=== PATIENT | female | born 1950 | race Caucasian/White ===

== ENCOUNTER 2019-05-21 09:53 | Inpatient (IN) | payer MEDICAID, SELFPAY ==
--- NOTE | 2019-05-21 10:11 | CT ---
Head CT without contrast 05/21/2019: Comparison: None HISTORY: Altered mental status, unresponsive TECHNIQUE: Axial CT imaging at 5 mm intervals from vertex through skull base without contrast FINDINGS: There is an intra-axial lesion measuring 4.5 x 2.3 cm on the left lateral to the left thala mus inseparable from the lateral aspect of the putamen. Its inferior extension approaches the insular region and its superior margin extends into the posterior left frontal deep white matter. The re is surrounding hypodensity suggesting vasogenic edema. This lesion is heterogeneous and hyperdense when compared to the adjacent brain parenchyma. No midline shift. IMPRESSION: Intra-axial hyperdense mass on the left. This suggests a hemorrhage with associated vasog enic edema. This could represent a hemorrhagic mass lesion. Recommend neurosurgical consultation and follow-up brain MRI with and without contrast. Dr. Root made aware at approximately 10:00 AM 05/21/2019.
[2019-05-21] MEDS ORDERED: niCARdipine 25 MG in Sodium Chloride 0.9% 250 ML 240 ML IVPB SCH (10:30)
[2019-05-21 10:48] LABS: PTT 30.5 SEC (22.9-36.1); Prothrombin Time 13.5 SEC (12.0-14.7)
[2019-05-21 10:59] LABS: #Eosinphils 0.1 thou/uL (0.0-0.7); #Lymphocytes 1.3 thou/uL (1.20-3.40); #Monocytes 0.5 thou/uL (0.11-0.59); #Neutrophils 2.5 thou/uL (1.40-6.50); %Basophils 0.4 % (0.0-1.0); %Eosinophils 2.2 % (0.0-10.0); %Lymphocytes 29.1 % (21.0-51.0); %Monocytes 11.7 % (0.0-10.0); %Neutrophils 56.7 % (42.0-75.0); ALT (SGPT) 7 U/L (8-55); AST (SGOT) 19 U/L (5-34); Albumin 4.5 g/dL (3.4-4.8); Alkaline Phosphatase 78 U/L (40-110); Anion Gap 11 mmol/L (10-20); BUN (Urea Nitrogen) 14 mg/dL (9.8-20.1); Bilirubin, Total 0.6 mg/dL (0.2-1.2); Calc. Creatinine Clearance 0 mL/min (70-130); Calcium 9.8 mg/dL (7.8-10.44); Carbon Dioxide 26 mmol/L (23-31); Chloride 106 mmol/L (98-107); Estimated GFR-MDRD 71; Globulin 2.7 g/dL (2.4-3.5); Glucose 102 mg/dL (80-115); Hemoglobin 12.9 g/dL (12.0-16.0); Mean Corpuscular HGB CONC 33.6 g/dL (32.0-36.0); Mean Corpuscular Hemoglobin 28.4 pg (27.0-31.0); Mean Corpuscular Volume 84.6 fL (78.0-98.0); Mean Platelet Volume 7.4 fL (7.4-10.4); Platelet Count 172 thou/uL (130-400); Potassium 3.7 mmol/L (3.5-5.1); Protein, Total 7.2 g/dL (6.0-8.3); Red Blood Cell (RBC) Count 4.56 mill/uL (4.20-5.40); Sodium 139 mmol/L (136-145); White Blood Cell (WBC) Count 4.5 thou/uL (4.8-10.8)
[2019-05-21] MEDS ORDERED: Ondansetron PF 4 MG/2 ML Vial IVP PRN (13:22)
--- NOTE | 2019-05-21 13:26 | PDOC.HHP ---
Hospitalist HPI - History of Present Illness intracranial hemorrhage History of Present Illness: This is a 68 year old Italian speaking female with past medical history of hypertension, arthritis who presented to the ER after syncope while visiting her daughter who was admitted in the oncology department. Patient is unable to give history as she is encephalopathic. According to nursing staff who spoke with daughter, patient has a history of hypertension and is noncompliant with her medications. The patient regained consciousness but has had right sided weakness since and has not been communicative. ED Course: Vitals upon presentation to the ER were remarkable for a blood pressure of 218/ 124. The patient was started on a nicardipine drip with improvement in her blood pressure to 160. CT head showed a hemorrhage on the left side with vasogenic edema. Neurosurgery was consulted and recommended nonoperative management at this time and admission to ICU. MRI ordered and pending. Hospitalist ROS - Review of Systems ROS unobtainable: due to mental status Hospitalist History - Past Medical History Cardiac: reports: HTN Musculoskeletal: reports: Other (Arthritis) - Past Surgical History Other Surgical History: Unknown - Family History Other Family History: Unknown - Social History Smoking Status: Unknown if ever smoked Other Social History: Unknown - Exam General Appearance: NAD General - other findings: Patient is awake, does not answer questions or follow commands Eye: PERRL, anicteric sclera ENT: normocephalic atraumatic Neck: supple, symmetric, no JVD, no thyromegaly Heart: RRR, no murmur, no gallops, no rubs Respiratory: CTAB, no wheezes, no rales, no ronchi Gastrointestinal: soft, non-tender, non-distended, normal bowel sounds Extremities: no cyanosis, no clubbing, no edema Skin: normal turgor, no lesions, no rashes Neurological: negative: facial droop Neurological - other findings: RUE and RLE weakness. Unable to assess cranial nerves Musculoskeletal: normal tone, no muscle wasting Psychiatric: normal affect, normal behavior, A&O x 3, oriented to person Hospitalist Results - Labs Result Diagrams: 05/21/19 10:12 05/21/19 10:12 Lab results: WBC 4.5 thou/uL (4.8-10.8) L 05/21/19 10:12 Hgb 12.9 g/dL (12.0-16.0) 05/21/19 10:12 Hct 38.5 % (36.0-47.0) 05/21/19 10:12 MCV 84.6 fL (78.0-98.0) 05/21/19 10:12 Plt Count 172 thou/uL (130-400) 05/21/19 10:12 Neutrophils % 56.7 % (42.0-75.0) 05/21/19 10:12 Sodium 139 mmol/L (136-145) 05/21/19 10:12 Potassium 3.7 mmol/L (3.5-5.1) 05/21/19 10:12 Chloride 106 mmol/L (98-107) 05/21/19 10:12 Carbon Dioxide 26 mmol/L (23-31) 05/21/19 10:12 BUN 14 mg/dL (9.8-20.1) 05/21/19 10:12 Creatinine 0.80 mg/dL (0.6-1.1) 05/21/19 10:12 Glucose 102 mg/dL (80-115) 05/21/19 10:12 Calcium 9.8 mg/dL (7.8-10.44) 05/21/19 10:12 Total Bilirubin 0.6 mg/dL (0.2-1.2) 05/21/19 10:12 AST 19 U/L (5-34) 05/21/19 10:12 ALT 7 U/L (8-55) L 05/21/19 10:12 Alkaline Phosphatase 78 U/L (40-110) 05/21/19 10:12 Troponin I Less than 0.010 ng/mL (< 0.028) 05/21/19 10:12 Serum Total Protein 7.2 g/dL (6.0-8.3) 05/21/19 10:12 Albumin 4.5 g/dL (3.4-4.8) 05/21/19 10:12 - EKG Interpretation EKG: NSR with LVH Hospitalist H&P A/P - Plan Plan: CT brain: hemorrhage with vasogenic edema This is a 68 year old female who presented with syncopal event, found to have elevated BP of 220 on arrival, admitted to ICU on nicardipine drip #Hypertensive emergency #Intracranial hemorrhage on the left #Syncope - patient presented with BP of 220 with loss of consciousness. Ct head shows hemorrhage on the left with vasogenic edema. Patient has right sided weakness. Per neurosurgery hold off on steroids for now since edema doesn't appear significant, however will await MRI brani - titrate SBP to 160-180 for first 24 hours - check troponin x 3, first negative. Obtain chest X ray, UA - check ECHo #Leukopenia - WBC 4.5, check CBC in am #Arthritis - unknown home meds I spent total 30 minutes critical care time with patient including face to face Code status: unknown assume full code DVt prophylaxis: contraindicated
[2019-05-21] MEDS ORDERED: Magnevist 469MG/ML 20 ML VIAL ONE (13:34)
--- NOTE | 2019-05-21 14:03 | CON ---
DATE OF CONSULTATION: HISTORY OF PRESENT ILLNESS: Ms. Fallon is a 68-year-old woman, who was in her normal state of health today. This morning, while visiting her daughter who apparently is a patient at our oncology floor and had sudden loss of consciousness for short period of time. She then regained consciousness, but had some right-sided upper and lower extremity weakness on examination. This resulted in trip to the emergency department, where a CT scan showed very large 4 x 2 cm hyperintensity lesion within the deep left hemisphere around the basal ganglia, mesial temporal lobe. She reportedly was nonverbal even to her [place] strategic partnership specialist as she does not speak any Czech. She also is in and out of consciousness at bedside in the ICU, this is still the same. Her blood pressures were elevated in the 200s. This is now down in the 150s on a Cardene drip as per our direction. This represents a noninterventional or nonsurgical hemorrhage. There was no midline shift associated with this. There is a possibility as well. This may not even be intracerebral hemorrhage given the somewhat decreased density from what I would typically expect an acute intracerebral hemorrhage. We will obtain an MRI with and without contrast today to re-evaluate this. We are also pending the results of that scan. Order CT scan later this evening. For now, systolic pressures are under 160, and we will continue to follow along. Job ID: [id number]
--- NOTE | 2019-05-21 17:05 | MRI ---
Brain MRI with and without contrast: 05/21/2019 HISTORY: Reevaluate intra-axial lesion seen on recent CT examination TECHNIQUE: Multiplanar multisequence MR imaging of the brain obtained with and without contrast FINDINGS: The gradient echo imaging demonstrates a intra-axial lesion on the left exhibiting marked b looming artifact consistent with hemorrhage. This lesion measures 2.9 cm in transverse dimension, 5.5 cm in AP dimension, and approximately 2.9 cm in craniocaudal dimension. On the FLAIR imaging this is heterogeneous but primarily markedly hyperintense. This lesion is heterogeneously isointense/hyperintense on T2 and on precontrast T1-weighted imaging the lesion is primarily hypointe nse/isointense. The postcontrast imaging demonstrates no discrete enhancement. This lesion is centered lateral to the left thalamus along the posterior lateral aspect of the left putamen and abut s the posterior body of the left lateral ventricle as well as the ventral aspect of the atrium of the left lateral ventricle. There is mass effect on the adjacent atrium and posterior body of the lef t lateral ventricle. There is a degree of surrounding vasogenic edema. There is no significant midline shift. Numerous foci of increased T2 and FLAIR signal scattered throughout the periventricular, deep, and olivares bcortical white matter, suggesting small vessel disease. The postcontrast imaging demonstrates no abnormal enhancement within the brain parenchyma. Arterial f low voids at axial level of skull base appear grossly unremarkable on the T2-weighted imaging. Imaged paranasal sinuses and mastoid air cells are grossly unremarkable. IMPRESSION: 2.9 x 5.5 x 2.9 cm left-sided intra-axial lesion with significant blooming artifact, cons istent with a hemorrhagic lesion. This likely represents a bland intra-axial hemorrhage. A hemorrhagic mass lesion is not fully excluded but is felt much less likely given lack of enhancement on postcontrast imaging. Recommend short-term follow-up imaging to document full resolution. At the time of resolution of the acute hemorrhagic component a repeat contrast enhanced brain MRI is suggest ed to exclude the possibility of a small underlying lesion currently obscured by the acute areas of signal abnormality.
[2019-05-21] MEDS ORDERED: HumaLOG 300 UNITS/3 ML VIAL SC PRN (17:17)
[2019-05-21] MEDS ORDERED: Dextrose 50% Abboject 50 ML SYRINGE SLOW IVP PRN (17:17)
[2019-05-21] MEDS ORDERED: Dextrose 5% in Water 1,000 ML IV PRN (17:17)
[2019-05-21] MEDS ORDERED: Acetaminophen 650 MG in Premix Bag 1 BAG IVPB PRN (17:18)
[2019-05-21] MEDS ORDERED: Morphine 2 MG/ML SYRINGE SLOW IVP PRN (17:18)
[2019-05-21] MEDS ORDERED: Dextrose 5 %-0.45 % NaCl 1,000 ML IV SCH (17:30)
--- NOTE | 2019-05-21 17:33 | RAD ---
Chest one view HISTORY: Hypertension. FINDINGS: No comparison. Cardiac silhouette is magnified and enlarged. Pulmonary vasculature upper li mits of normal. Mediastinum is midline with aortic calcification. No lobar consolidation or evidence of pneumothorax. IMPRESSION: Cardiomegaly. Atherosclerosis.
--- NOTE | 2019-05-21 20:18 | CON ---
DATE OF CONSULTATION: 05/21/2019 HISTORY OF PRESENT ILLNESS: Ms. Fallon was visiting a daughter who is ill in the Oncology unit. Apparently, she fell out. Jose Alex was called, and she was found to have a brain bleed. She is hemiplegic on the right and aphasic. She is unable to give a history. PAST MEDICAL HISTORY: According to the daughter's friend who speaks Armenian as far as she knows is unremarkable. She was noted to be markedly hypertensive in the emergency department and does have a history of hypertension. There is no history of surgeries according to the daughter's friend, but she quickly admits she does not know all of her friend's mother's history. FAMILY HISTORY: Unknown. SOCIAL HISTORY: Unknown. REVIEW OF SYSTEMS: 10 point review of systems completed, not obtainable. PHYSICAL EXAMINATION: GENERAL: When I saw her, she could make eye contact. She is nonverbal. VITAL SIGNS: Heart rate is in the 70s, blood pressure 167/91, respiratory rate 20. She is protecting her airway. NECK: Supple. No lymphadenopathy. HEENT: pupils react. LUNGS: Clear. HEART: Regular rhythm. ABDOMEN: Soft and nontender. EXTREMITIES: Without edema. Again, she is right hemiplegic. LABORATORY DATA: White count 4.5, hemoglobin 12.9, platelets 172. Electrolytes are normal. Kidney function was normal. Liver enzymes were normal. Albumin was normal. CT showed a left thalamic bleed. MRI was ordered after the CT by Neurosurgery. There was felt to be a hemorrhage , much less likely a mass. IMPRESSION: Hypertensive hemorrhage, being followed by Neurosurgery. No surgery is anticipated at this time. Obviously, her ability to care for her daughter will be impaired by this. Hopefully, we will see some neurological improvement. I would be concerned that she will reach a point where she may have difficulty protecting her airway. We will continue to watch her in the critical care unit. This is a 70 minute consult, with greater than 50% of time spent on unit coordinating care. Job ID: [id number] MTDD
[2019-05-21] MEDS: niCARdipine 25 MG in Sodium Chloride 0.9% 250 ML 240 ML IVPB PRN (21:48)
[2019-05-21] MEDS: Famotidine/PF 20 mg/2ml Vial SLOW IVP SCH (21:48)
[2019-05-21] MEDS: Sodium Chloride 0.9% 1,000 ML IV SCH (23:00)
[2019-05-22] MEDS: niCARdipine 25 MG in Sodium Chloride 0.9% 250 ML 240 ML IVPB PRN (00:40)
[2019-05-22] MEDS ORDERED: niCARdipine 50 MG in Sodium Chloride 0.9% 250 ML 230 ML IVPB PRN (04:22)
[2019-05-22 06:45] LABS: ALT (SGPT) 7 U/L (8-55); AST (SGOT) 21 U/L (5-34); Albumin 4.5 g/dL (3.4-4.8); Alkaline Phosphatase 82 U/L (40-110); Anion Gap 15 mmol/L (10-20); BUN (Urea Nitrogen) 12 mg/dL (9.8-20.1); Bilirubin, Total 0.7 mg/dL (0.2-1.2); Calc. Creatinine Clearance 118 mL/min (70-130); Calcium 9.7 mg/dL (7.8-10.44); Carbon Dioxide 20 mmol/L (23-31); Chloride 104 mmol/L (98-107); Estimated GFR-MDRD 83; Glucose 122 mg/dL (80-115); Potassium 3.6 mmol/L (3.5-5.1); Protein, Total 7.5 g/dL (6.0-8.3); Sodium 135 mmol/L (136-145)
[2019-05-22 08:55] LABS: Bacteria/HPF None Seen HPF (None Seen); Bilirubin Negative (Negative); Blood, Urine Trace (Negative); Clarity Clear (Clear); Glucose, Urine (Dipstick) Normal (Negative); Leukocyte Negative Leu/uL (Negative); Nitrite Negative (Negative); Protein, Urine (Dipstick) 30 mg/dL (Neg-Trace); Squamous Epithelial 0-3 HPF (0-3); Urobilinogen Normal mg/dL (Less than 2)
[2019-05-22] MEDS ORDERED: Prevnar 13-Val Conj/PF 0.5 ML SYRINGE IM ONE (09:00)
[2019-05-22] MEDS: Famotidine/PF 20 mg/2ml Vial SLOW IVP SCH ×2 (09:00→20:30)
[2019-05-22] MEDS ORDERED: FLU VACC TS2019-20(65YR UP)/PF 180 MCG/0.5 ML SYRINGE IM ONE (09:00)
[2019-05-22 09:04] LABS: WBC/HPF 0-3 HPF (0-3)
--- NOTE | 2019-05-22 09:32 | CT ---
PRELIMINARY REPORT/[facility]/EMERGENCY AFTER HOURS PROCEDURE: PROCEDURE INFORMATION: Exam: CT Head Without Contrast Exam date and time: 05/22/2019 4:54 AM Clinical history: 68 years old, female; Patient HX: Followup of known intracranial hemorrhage. TECHNIQUE: Imaging protocol: Computed tomography of the head without contrast. COMPARISON: No relevant prior studies available. A prior report is available from 05/21/2019. FINDINGS: Brain: As described in the prior report, there is an acute intraparenchymal hematoma centered in the region of the left basal ganglia. The hematoma measures 45 x 22 x 25 mm, estimated volume approximately 13 cc. The prior report describ es the size as 45 x 23 mm. Eventual comparison with any available prior exams will be helpful. Moderate amount of surrounding edema and focal mass effect. There is 2-3 mm of [id number] midline shift. There is mild decreased attenuation in the periventricular white matter, likely from microvascular di sease. No other definite acute infarct by CT. Ventricles: Ventricle size is normal for age. Bones/joints: No definite acute skull fracture. Sinuses: Included paranasal sinuses are essentially clear. Mastoid air cells: No significant acute finding. Vasculature: Vascular calcifications in the internal carotid and vertebral basilar systems. IMPRESSION: 1. As described previously, there is an acute intraparenchymal hematoma centered in the left basal ga nglia. Please see above details. 2. Moderate amount of surrounding edema and focal mass effect. 3. 2-3 mm of [id number]-ia-[id number] midline shift. 4. Eventual comparison with any available prior exams will be helpful. 5. Other findings discussed above. Thank you for allowing us to participate in the care of your patient. Dictated and Authenticated by: Malcolm Singer MD 05/22/2019 5:57 AM Central Time ([place] & [place]) FINAL REPORT CT BRAIN WITHOUT CONTRAST: FINDINGS/IMPRESSION: I agree with the preliminary report given by Laya. Comparison made with exam of previous day. POS: SANDRA
--- NOTE | 2019-05-22 13:16 | PRG ---
DATE OF SERVICE: 05/22/2019 SUBJECTIVE: Mona Fallon is clinically unchanged. She is still handling her secretions. She is still hemiplegic and aphasic. OBJECTIVE: VITAL SIGNS: She is afebrile. Heart rate is 97, blood pressure 140/94. LUNGS: Clear. HEART: Regular rhythm. ABDOMEN: Soft. LABORATORY DATA: Electrolytes; sodium 135, potassium 3.6, chloride 104, bicarb 20, BUN 12, and creatinine 0.7. IMPRESSION: Parenchymal brain hemorrhage. CT scan shows no progression today. Continue supportive care. Job ID: [id number]
--- NOTE | 2019-05-22 15:01 | PDOC.HOSPP ---
- Subjective Encounter Date: 05/22/19 Encounter Time: 14:59 Subjective: Patient is still confused, not following commands. Unable to get [place] video asbestos shingle inspector today. Per nursing staff she did not understand when asbestos shingle inspector was used either. Patient looks around as if nobody is in the room, but responds to her name. She neglects right side - Objective Vital Signs & Weight: Vital Signs (12 hours) Temp Pulse Ox 05/22/19 11:00 98.0 F 05/22/19 08:00 98 05/22/19 07:00 98.3 F 05/22/19 04:00 98.7 F Weight Admit Weight 213 lb 6.519 oz Weight 213 lb 6.519 oz Most Recent Monitor Data Heart Rate from ECG 108 NIBP 140/86 NIBP BP-Mean 104 Respiration from ECG 22 SpO2 96 I&O: 05/21/19 05/22/19 05/23/19 06:59 06:59 06:59 Intake Total 948 Output Total 2100 1 Balance -1152 -1 Result Diagrams: 05/21/19 10:12 05/22/19 05:56 Additional Labs: Accuchecks 05/22/19 05/22/19 05/21/19 13:18 00:46 18:45 POC Glucose 103 129 H 108 Hospitalist ROS - Review of Systems Constitutional: denies: fever - Medication Medications: Active Medications Generic Name Dose Route Start Last Admin Trade Name Freq PRN Reason Stop Dose Admin Famotidine 20 mg 05/21/19 21:00 05/22/19 09:00 Pepcid SLOW IVP 20 mg Q12HR CRUZ Administration Nicardipine HCl 25 mg/ Sodium 250 mls @ 0 mls/hr 05/21/19 13:22 05/22/19 00: 40 Chloride IVPB 250 mls INF PRN Administration Hypertension Protocol Titrate Sodium Chloride 1,000 mls @ 60 mls/hr 05/21/19 22:15 05/21/19 23:00 Normal Saline 0.9% IV 1,000 mls .[id number] CRUZ Administration Nicardipine HCl 50 mg/ Sodium 250 mls @ 0 mls/hr 05/22/19 04:22 05/22/19 11: 36 Chloride IVPB 250 mls INF PRN Administration HYPERTENSION Protocol Titrate Sodium Chloride 10 ml 05/21/19 21:00 05/22/19 09:01 Flush - Normal Saline IVF 10 ml Q12HR CRUZ Administration - Exam General Appearance: NAD, awake alert General - other findings: confused with right sided neglect Eye: anicteric sclera. negative: PERRL ENT: normocephalic atraumatic, no oropharyngeal lesions Neck: supple, symmetric, no JVD, no thyromegaly Heart: RRR, no murmur, no gallops, no rubs Respiratory: CTAB, no wheezes, no rales, no ronchi Gastrointestinal: soft, non-tender, non-distended, normal bowel sounds Extremities: no cyanosis, no clubbing, no edema Skin: normal turgor, no lesions, no rashes Neurological: cranial nerve grossly intact Neurological - other findings: still not moving right arm or right leg. Spontaneously moves left side Musculoskeletal: no muscle wasting Musculoskeletal - other findings: flaccid on right Psychiatric - other findings: confused Hosp A/P - Plan CT head: hematoma measures 45 x 22 x 25. Moderate amount of surrounding edema and focal mass effect, 2-3 mm of left to right midline shift. Chest X ray 05/21: cardiomegaly ECHO: pending This is a 68 year old female who presented with syncopal event, found to have elevated BP of 220 on arrival, admitted to ICU on nicardipine drip #Hypertensive emergency #Intracranial hemorrhage on the left #Syncope - patient presented with BP of 220 with loss of consciousness. Ct head shows hemorrhage on the left with vasogenic edema. Patient has right sided weakness. - repeat CT head showing significant edema, no steroids per neurosurgery . Repeat CBC - BP goal 140-160, continue nicardipine drip - titrate SBP to 160-180 for first 24 hours - troponin negative times three. Chest X ray shows cardiomegaly, UA 100 ketones - ECHO pending - hold off on NG feedings for now given hemorrhage. Defer to NS when safe to restart #Leukopenia - WBC 4.5, check CBC #Arthritis - unknown home meds Code status: assume full code, unknown DVT prophylaxis: contraindicated
[2019-05-22] MEDS: Sodium Chloride 0.9% 1,000 ML IV SCH ×2 (15:36→17:16)
--- NOTE | 2019-05-22 16:38 | PDOC.PALCO ---
Palliative Care Consult - Consult Details Requesting Physician: Dr Colón Reason for Consult: advance directives assistance, assistance with communication prognosis/disease Family Members Present: Daughter is a patietn of Dr Alatorre in [place] - Pertinent HPI Patient is a 68 year old female who was at her daughters bedside (Who is a patient in oncology with a guarded prognosis) and had a syncopal episode at bedside, transferred to the emergency room for evaluation and was noted to have a left hemorrhage with Vasogenic edema, non verbal with right sided weakness. Admitted to CCU for medical management - Pertinent PMH Hypertension, HDL - Social History Smoking Status: Unknown if ever smoked Smoking: no tobacco exposure Alcohol Use: none Drug Use History: none Living Situation: other (Maltese speaking, is here from the [facility] to assist in caring for her daughter) - Medications MAR Reviewed: Yes - Allergies Allergies/Adverse Reactions: Allergies Allergy/AdvReac Type Severity Reaction Status Date / Time No Known Drug Allergies Allergy Verified 05/21/19 10:22 - Subjective Resting, opens eye when stimulated. Aphagic. Right sided weakness. Unable to perform ROS - Objective Vital Signs: Vital Signs - Most Recent Temp Pulse Resp BP Pulse Ox 98.4 F 79 22 H 98 05/22/19 15:00 05/21/19 10:19 05/21/19 10:19 05/22/19 08:00 Palliative Performance Scale: 20 - Physical Exam Constitutional: mild distress HEENT: moist MMs, sclera anicteric Respiratory: clear to auscultation bilateral, unlabored breathing Cardiovascular: RRR Gastrointestinal: soft, non-tender, positive bowel sounds Musculoskeletal: pulses present, no clubbing Deviation from normal: right weakness Deviation from normal: flat, opens eyes but returns to sleep state - Problem List (1) Palliative care encounter Code(s): Z51.5 - ENCOUNTER FOR PALLIATIVE CARE Current Visit: Yes Status: Acute (2) Hemiplegia affecting right dominant side Code(s): G81.91 - HEMIPLEGIA, UNSPECIFIED AFFECTING RIGHT DOMINANT SIDE Current Visit: Yes Status: Acute (3) Cerebral parenchymal hemorrhage Code(s): I61.9 - NONTRAUMATIC INTRACEREBRAL HEMORRHAGE, UNSPECIFIED Current Visit: Yes Status: Acute - Plan/Recommendations Plan: Assessed patient. Visited with daughter earlier, states she visited her mother. Daughter is having difficulty grasping severity of her mothers cerebral hemorrhage. Patient is here caring for her terminally ill daughter who is currently a patient in oncology and cared for by Dr Alatorre. *Support family *Discuss Resuscitation Status *Assist patient daughter with complex disease process of her mother, possibilities of disease trajectories and identify goals of care. *Will visit with daughter and establish contact for her sister (Ms Chamorro other daughter) [45] minutes spent on this encounter with >50% of the time in counseling and coordination of care. Thank you for this very appropriate consult.
[2019-05-22] MEDS: niCARdipine 50 MG in Sodium Chloride 0.9% 250 ML 230 ML IVPB PRN (17:16)
[2019-05-22] MEDS: Acetaminophen 650 MG Suppository PR PRN (23:41)
--- NOTE | 2019-05-22 23:44 | RAD ---
Chest one view HISTORY: Fever. Cough. COMPARISON: 05/21/2019. FINDINGS: Cardiac silhouette is magnified and upper limits of normal in size. Pulmonary vasculature i s unremarkable. Mediastinum is midline with aortic calcification. No lobar consolidation or evidence of pneumothorax. monitor car operator leads overlie the chest. IMPRESSION: Borderline cardiomegaly. Atherosclerosis.
[2019-05-22 23:49] LABS: #Lymphocytes 1.5 thou/uL (1.20-3.40); #Monocytes 0.7 thou/uL (0.11-0.59); #Neutrophils 9.4 thou/uL (1.40-6.50); %Basophils 0.2 % (0.0-1.0); %Eosinophils 0.1 % (0.0-10.0); %Lymphocytes 12.8 % (21.0-51.0); %Monocytes 6.1 % (0.0-10.0); %Neutrophils 80.8 % (42.0-75.0); Hemoglobin 13.9 g/dL (12.0-16.0); Mean Corpuscular HGB CONC 34.4 g/dL (32.0-36.0); Mean Corpuscular Hemoglobin 28.2 pg (27.0-31.0); Mean Corpuscular Volume 81.9 fL (78.0-98.0); Mean Platelet Volume 6.7 fL (7.4-10.4); Platelet Count 211 thou/uL (130-400); Red Blood Cell (RBC) Count 4.93 mill/uL (4.20-5.40); White Blood Cell (WBC) Count 11.7 thou/uL (4.8-10.8)
[2019-05-23 00:06] LABS: Lactic Acid 0.8 mmol/L (0.5-2.2)
[2019-05-23 01:03] LABS: Bilirubin Negative (Negative); Blood, Urine Trace (Negative); Clarity Clear (Clear); Glucose, Urine (Dipstick) Normal (Negative); Leukocyte Negative Leu/uL (Negative); Nitrite Negative (Negative); Protein, Urine (Dipstick) 10 mg/dL (Neg-Trace); RBC/HPF 0-3 HPF (0-3); Squamous Epithelial None Seen HPF (0-3); Urobilinogen Normal mg/dL (Less than 2); WBC/HPF 0-3 HPF (0-3)
[2019-05-23 01:09] LABS: Bacteria/HPF Rare-Few HPF (None Seen)
[2019-05-23 01:11] LABS: Urine Culture Reflex No No
[2019-05-23] MEDS: Metoprolol Tartrate 5 MG/5 ML VIAL IVP PRN ×4 (02:23→15:57)
[2019-05-23 04:06] LABS: Hemoglobin 13.2 g/dL (12.0-16.0); Mean Corpuscular HGB CONC 33.3 g/dL (32.0-36.0); Mean Corpuscular Hemoglobin 27.1 pg (27.0-31.0); Mean Corpuscular Volume 81.6 fL (78.0-98.0); Platelet Count 218 thou/uL (130-400); RBC Distribution Width 12.8 % (11.5-14.5); Red Blood Cell (RBC) Count 4.85 mill/uL (4.20-5.40); White Blood Cell (WBC) Count 11.7 thou/uL (4.8-10.8)
[2019-05-23 04:43] LABS: ALT (SGPT) 7 U/L (8-55); AST (SGOT) 17 U/L (5-34); Albumin 4.4 g/dL (3.4-4.8); Alkaline Phosphatase 79 U/L (40-110); Anion Gap 10 mmol/L (10-20); BUN (Urea Nitrogen) 18 mg/dL (9.8-20.1); Bilirubin, Total 0.7 mg/dL (0.2-1.2); Calc. Creatinine Clearance 114 mL/min (70-130); Calcium 9.2 mg/dL (7.8-10.44); Carbon Dioxide 24 mmol/L (23-31); Chloride 105 mmol/L (98-107); Estimated GFR-MDRD 81; Globulin 2.8 g/dL (2.4-3.5); Glucose 132 mg/dL (80-115); Protein, Total 7.2 g/dL (6.0-8.3); Sodium 136 mmol/L (136-145)
[2019-05-23] MEDS: niCARdipine 50 MG in Sodium Chloride 0.9% 250 ML 230 ML IVPB PRN ×2 (05:01→15:55)
[2019-05-23] MEDS: Famotidine/PF 20 mg/2ml Vial SLOW IVP SCH ×2 (07:30→20:05)
--- NOTE | 2019-05-23 07:55 | PRG ---
DATE OF SERVICE: 05/22/2019 Ms. Fallon this morning is roughly stable on a neurologic examination. She does not speak Romanian, but an distance learning program coordinator was used. She is not following commands. She opens her eyes, grasps, yells out for people who are in the room. Repeat CT this morning shows stable hemorrhage size. There is now some early vasogenic edema surrounding this hemorrhage of the left basal ganglia, mesial temporal lobe. It appeared that she otherwise is experiencing a combination of receptive and expressive aphasia or is just encephalopathic and likely is a combination of both hemorrhage. She is hemiparetic on the right. From Neurosurgery standpoint, this is still a nonsurgical hemorrhage. Given her overall level of consciousness and lack of significant midline shift, we would state that her prognosis is guarded at this time and will likely result in some significant permanent deficits, particularly right motor, though there is a substantial chance for fair recovery with extensive rehabilitation with Speech, PT, and OT over the next 18 months, but again reiterating the fact that the likelihood of substantial recovery being rather low with a definitive minimal chance that returned to normal function. Plan for now is to continue to follow along. We will consider medical management if vasogenic edema becomes a problem and midline shift becomes significant. Job ID: [id number]
[2019-05-23] MEDS: Sodium Chloride 0.9% 1,000 ML IV SCH (09:13)
--- NOTE | 2019-05-23 11:12 | RAD ---
KUB: 05/23/2019 COMPARISON: None HISTORY: Dobbhoff tube placement FINDINGS: Dobbhoff tube noted, distal tip overlying the midline upper epigastric region at the L1 lev el, likely within the region of the gastric body. The bowel gas pattern is nonobstructed. There is levoscoliosis of the midlumbar spine. IMPRESSION: Dobbhoff tube as above.
[2019-05-23] MEDS: Potassium Chloride 10 MEQ in Premix Bag 1 BAG IVPB SCH ×4 (12:26→15:58)
[2019-05-23] MEDS ORDERED: Pancrelipase DR 12000 1 CAP PER TUBE PRN (12:42)
[2019-05-23] MEDS ORDERED: Sodium Bicarbonate Tab 325 MG TAB PER TUBE PRN (12:42)
[2019-05-23] MEDS ORDERED: Amlodipine 10 MG TAB PO SCH (13:45)
[2019-05-23] MEDS: cloNIDine 0.1 MG TAB PO PRN ×2 (15:57→23:35)
[2019-05-23] MEDS: Acetaminophen 650 MG Suppository PR PRN (16:11)
--- NOTE | 2019-05-23 16:17 | PRG ---
DATE OF SERVICE: 05/23/2019 SUBJECTIVE: Mona Fallon still nonverbal and hemiplegic. There are no issues from a secretion standpoint airway protection. OBJECTIVE: VITAL SIGNS: At this time, blood pressure 163/94, heart rate is 92. We are trying to switch her from Cardene drip to Norvasc. We will add Catapres for p.r.n. use. She has a Dobbhoff tube placed. LUNGS: Clear. HEART: Regular rhythm. ABDOMEN: Soft. EXTREMITIES: Without asymmetry. IMPRESSION: Parenchymal brain hemorrhage, likely secondary to hypertension, clinically stable at this time. Dobhoff has been placed, highly likely she will need a PEG at some point. Job ID: [id number]
--- NOTE | 2019-05-23 17:40 | PDOC.HOSPP ---
- Subjective Encounter Date: 05/23/19 Encounter Time: 17:00 Subjective: Patient is awake, still not following commands or moving RLE. - Objective Vital Signs & Weight: Vital Signs (12 hours) Temp Pulse Ox 05/23/19 16:00 99.9 F H 05/23/19 11:00 99.3 F 05/23/19 07:15 97 05/23/19 07:00 100.0 F H Weight Admit Weight 213 lb 6.519 oz Weight 210 lb 12.191 oz Most Recent Monitor Data Heart Rate from ECG 92 NIBP 136/99 NIBP BP-Mean 111 Respiration from ECG 15 SpO2 96 I&O: 05/22/19 05/23/19 05/24/19 06:59 06:59 06:59 Intake Total 948 1849.5 240 Output Total 2100 4 1700 Balance -1152 1845.5 -1460 Result Diagrams: 05/23/19 03:30 05/23/19 03:30 Additional Labs: Accuchecks 05/23/19 05/23/19 05/23/19 16:51 12:11 05:59 POC Glucose 101 80 115 H 05/22/19 05/22/19 23:41 18:12 POC Glucose 119 H 110 Hospitalist ROS - Review of Systems ROS unobtainable: due to mental status - Medication Medications: Active Medications Generic Name Dose Route Start Last Admin Trade Name Freq PRN Reason Stop Dose Admin Acetaminophen 650 mg 05/22/19 23:17 05/23/19 16:11 Tylenol ID 650 mg Q4H PRN Administration Headache/Fever or Pain Clonidine 0.1 mg 05/23/19 15:27 05/23/19 15:57 Catapres PO 0.1 mg Q4H PRN Administration SBP GREATER THAN 160 Famotidine 20 mg 05/21/19 21:00 05/23/19 07:30 Pepcid SLOW IVP 20 mg Q12HR CRUZ Administration Nicardipine HCl 25 mg/ Sodium 250 mls @ 0 mls/hr 05/21/19 13:22 05/22/19 00: 40 Chloride IVPB 250 mls INF PRN Administration Hypertension Protocol Titrate Sodium Chloride 1,000 mls @ 60 mls/hr 05/21/19 22:15 05/23/19 09:13 Normal Saline 0.9% IV 1,000 mls .[id number] CRUZ Administration Nicardipine HCl 50 mg/ Sodium 250 mls @ 0 mls/hr 05/22/19 15:11 05/23/19 15: 55 Chloride IVPB 250 mls INF PRN Administration HYPERTENSION Protocol Titrate Metoprolol Tartrate 5 mg 05/23/19 02:19 05/23/19 15:57 Lopressor IVP 5 mg Q3H PRN Administration HR > 110 Sodium Chloride 10 ml 05/21/19 21:00 05/23/19 07:30 Flush - Normal Saline IVF Not Given Q12HR CRUZ - Exam General Appearance: NAD, awake alert Eye: PERRL, anicteric sclera ENT: normocephalic atraumatic, no oropharyngeal lesions Neck: supple, no JVD Heart: RRR, no murmur, no gallops, no rubs Respiratory: CTAB, no wheezes, no rales, no ronchi Gastrointestinal: soft, non-tender, non-distended, normal bowel sounds, no palpable masses Extremities: no cyanosis, no clubbing, no edema Skin: normal turgor, no lesions, no rashes Neurological: cranial nerve grossly intact, normal sensation to touch Neurological - other findings: Spontaneously moves left side. Right side neglect , right UE and RLE weaknes Musculoskeletal: normal tone, normal strength, no muscle wasting Psychiatric: normal affect, normal behavior Hosp A/P - Plan CT head: hematoma measures 45 x 22 x 25. Moderate amount of surrounding edema and focal mass effect, 2-3 mm of left to right midline shift. Chest X ray 05/21: cardiomegaly ECHO: EF 55-60%, mild MR, mild TR This is a 68 year old female who presented with syncopal event, found to have elevated BP of 220 on arrival, admitted to ICU on nicardipine drip #Hypertensive emergency #Intracranial hemorrhage on the left #Syncope - patient presented with BP of 220 with loss of consciousness. Ct head shows hemorrhage on the left with vasogenic edema. Patient has right sided weakness. - repeat CT head showing significant edema, no steroids per neurosurgery . CBC shows no anemia - on nicardipine drip, will aim for SBP < 140 - troponin negative times three. Chest X ray shows cardiomegaly, UA 100 ketones - ECHO showed EF 55-60%, mild MR, mild TR - appreciate neurosurgery recs #Malnutrition - NG tube placed, started feeds. Consider PEG #Hypokalemia - potassium 3.0. Given 40 meq of potassium. Will recheck #Leukocytosis - WBC of 11. No pneumonia and UA negative - continue to monitor for fevers #Arthritis - unknown home meds Code status: assume full code, unknown DVT prophylaxis: contraindicated
[2019-05-23 18:20] LABS: Potassium 3.8 mmol/L (3.5-5.1)
[2019-05-24 04:57] LABS: ALT (SGPT) Less than 7 U/L (8-55); AST (SGOT) 14 U/L (5-34); Alkaline Phosphatase 70 U/L (40-110); Anion Gap 9 mmol/L (10-20); BUN (Urea Nitrogen) 25 mg/dL (9.8-20.1); Bilirubin, Total 0.6 mg/dL (0.2-1.2); Calc. Creatinine Clearance 106 mL/min (70-130); Carbon Dioxide 26 mmol/L (23-31); Chloride 105 mmol/L (98-107); Estimated GFR-MDRD 75; Globulin 2.4 g/dL (2.4-3.5); Glucose 120 mg/dL (80-115); Potassium 3.6 mmol/L (3.5-5.1); Protein, Total 6.4 g/dL (6.0-8.3); Sodium 136 mmol/L (136-145)
[2019-05-24] MEDS: Famotidine/PF 20 mg/2ml Vial SLOW IVP SCH ×2 (09:00→21:56)
[2019-05-24] MEDS: Amlodipine 10 MG TAB PO SCH (09:00)
[2019-05-24] MEDS: Sodium Chloride 0.9% 1,000 ML IV SCH ×2 (09:02→21:57)
--- NOTE | 2019-05-24 11:45 | PRG ---
DATE OF SERVICE: 05/24/2019 SUBJECTIVE: Mona Fallon is unchanged. She will open her eyes. She will reliably follow commands. OBJECTIVE: VITAL SIGNS: Blood pressure 140/99, heart rate 84, and respiratory rate is 14. GENERAL: She is not having issues with secretions. LUNGS: Clear. HEART: Regular rhythm. ABDOMEN: Soft. LABORATORY DATA: Sodium 136, potassium 3.6, chloride 105, bicarb 26, BUN 25, and creatinine 0.77. IMPRESSION: Parenchymal brain hemorrhage, now in the hospital since 05/21. She will likely benefit from PEG placement. We will continue to follow. Continue to make adjustments of blood pressure medicines. Job ID: [id number]
--- NOTE | 2019-05-24 19:14 | PDOC.HOSPP ---
- Subjective Encounter Date: 05/24/19 Encounter Time: 19:13 Subjective: The patient is following commands in Maltese. She states that her right arm is hurting her. Patient did fall during code green. She is clutching her right arm. She is still not moving right arm or leg. She moves left side. - Objective Vital Signs & Weight: Vital Signs (12 hours) Temp Pulse Pulse BP BP BP Pulse Ox 05/24/19 15:58 104 H 99 162/108 H 157/93 H 05/24/19 12:00 97.9 F 05/24/19 09:00 150/115 H 05/24/19 08:00 99 Weight Admit Weight 213 lb 6.519 oz Weight 214 lb 11.684 oz Most Recent Monitor Data Heart Rate from ECG 110 NIBP 157/93 NIBP BP-Mean 114 Respiration from ECG 18 SpO2 97 I&O: 05/23/19 05/24/19 05/25/19 06:59 06:59 06:59 Intake Total 1849.5 2512 Output Total 4 2583 1010 Balance 1845.5 -71 -1010 Result Diagrams: 05/23/19 03:30 05/24/19 04:25 Additional Labs: Accuchecks 05/24/19 05/24/19 05/24/19 18:17 11:30 06:23 POC Glucose 75 101 121 H 05/24/19 00:14 POC Glucose 83 Hospitalist ROS - Medication Medications: Active Medications Generic Name Dose Route Start Last Admin Trade Name Freq PRN Reason Stop Dose Admin Acetaminophen 650 mg 05/22/19 23:17 05/23/19 16:11 Tylenol [place] 650 mg Q4H PRN Administration Headache/Fever or Pain Amlodipine Besylate 10 mg 05/24/19 09:00 05/24/19 09:00 Norvasc PO 10 mg DAILY CRUZ Administration Clonidine 0.1 mg 05/23/19 15:27 05/23/19 23:35 Catapres PO 0.1 mg Q4H PRN Administration SBP GREATER THAN 160 Famotidine 20 mg 05/21/19 21:00 05/24/19 09:00 Pepcid SLOW IVP 20 mg Q12HR CRUZ Administration Sodium Chloride 1,000 mls @ 60 mls/hr 05/21/19 22:15 05/24/19 09:02 Normal Saline 0.9% IV 1,000 mls .[id number] CRUZ Administration Metoprolol Tartrate 5 mg 05/23/19 02:19 05/23/19 15:57 Lopressor IVP 5 mg Q3H PRN Administration HR > 110 Sodium Chloride 10 ml 05/21/19 21:00 05/24/19 09:01 Flush - Normal Saline IVF 10 ml Q12HR CRUZ Administration - Exam General Appearance: NAD, awake alert Eye: PERRL, anicteric sclera ENT: normocephalic atraumatic, no oropharyngeal lesions Neck: supple, symmetric, no JVD, no thyromegaly Heart: RRR, no murmur, no gallops, no rubs Respiratory: CTAB, no wheezes, no rales, no ronchi Gastrointestinal: soft, non-tender, non-distended, normal bowel sounds Extremities: no cyanosis, no clubbing, no edema Skin: normal turgor, no lesions, no rashes Neurological: cranial nerve grossly intact, normal sensation to touch, no focal deficits, no new deficit Musculoskeletal: normal tone, normal strength, no muscle wasting Psychiatric: normal affect, normal behavior, A&O x 3, oriented to person Hosp A/P - Plan CT head: hematoma measures 45 x 22 x 25. Moderate amount of surrounding edema and focal mass effect, 2-3 mm of left to right midline shift. Chest X ray 05/21: cardiomegaly ECHO: EF 55-60%, mild MR, mild TR This is a 68 year old female who presented with syncopal event, found to have elevated BP of 220 on arrival, admitted to ICU on nicardipine drip #Hypertensive emergency #Intracranial hemorrhage on the left #Syncope - patient presented with BP of 220 with loss of consciousness. Ct head shows hemorrhage on the left with vasogenic edema. Patient has right sided weakness. - repeat CT head showing significant edema, no steroids per neurosurgery . CBC shows no anemia - off nicardipine drip. Started amlodipine and aim for BP goal < 140 - troponin negative times three. Chest X ray shows cardiomegaly, UA 100 ketones - ECHO showed EF 55-60%, mild MR, mild TR #Right arm pain - will check X ray right arm - IV tylenol prn #Malnutrition - NG tube placed, started feeds. Will place consult for PEG #Hypokalemia -resolved #Leukocytosis - WBC up to 11.7 No pneumonia and UA negative - continue to monitor for fevers #Arthritis - unknown home meds Code status: assume full code, unknown DVT prophylaxis: contraindicated
--- NOTE | 2019-05-24 20:45 | RAD ---
RIGHT FOREARM TWO VIEWS: 05/24/19 HISTORY: Fall. Pain. FINDINGS: No fracture. No cortical irregularity or periosteal reaction. IMPRESSION: No fracture. POS: PPP
--- NOTE | 2019-05-24 20:46 | RAD ---
TWO VIEWS RIGHT HIP: 05/24/19 HISTORY: Fall. Pain. FINDINGS: Contour of the femoral head is maintained and hip joint space is preserved. Visualized bony pelvis an d sacrum are intact. IMPRESSION: No fracture. POS: PPP
--- NOTE | 2019-05-24 20:50 | RAD ---
RIGHT SHOULDER THREE VIEWS: 05/24/19 HISTORY: Pain. FINDINGS: Glenohumeral joint space is preserved. No fracture or dislocation. Degenerative changes of the acromi oclavicular joint space. The visualized ribs are intact. IMPRESSION: No fracture or dislocation. POS: PPP
[2019-05-25] MEDS: Acetaminophen 1,000 MG in Premix Bag 1 BAG IVPB PRN ×2 (03:44→18:09)
[2019-05-25 04:41] LABS: ALT (SGPT) Less than 7 U/L (8-55); AST (SGOT) 12 U/L (5-34); Albumin 3.7 g/dL (3.4-4.8); Alkaline Phosphatase 70 U/L (40-110); Anion Gap 9 mmol/L (10-20); BUN (Urea Nitrogen) 28 mg/dL (9.8-20.1); Bilirubin, Total 0.5 mg/dL (0.2-1.2); Calc. Creatinine Clearance 110 mL/min (70-130); Calcium 8.9 mg/dL (7.8-10.44); Carbon Dioxide 23 mmol/L (23-31); Chloride 108 mmol/L (98-107); Estimated GFR-MDRD 77; Globulin 2.5 g/dL (2.4-3.5); Glucose 132 mg/dL (80-115); Potassium 3.4 mmol/L (3.5-5.1); Protein, Total 6.2 g/dL (6.0-8.3); Sodium 137 mmol/L (136-145)
[2019-05-25] MEDS: Amlodipine 10 MG TAB PO SCH (09:28)
[2019-05-25] MEDS: Sodium Chloride 0.9% 1,000 ML IV SCH (09:29)
[2019-05-25] MEDS: Famotidine/PF 20 mg/2ml Vial SLOW IVP SCH ×2 (09:29→21:43)
--- NOTE | 2019-05-25 09:58 | PRG ---
DATE OF SERVICE: 05/25/2019 SUBJECTIVE: Essentially aphasic status post intraparenchymal hematoma, left basal ganglia. I am told Neurosurgery has signed off. OBJECTIVE: VITAL SIGNS: Temperature is 98, blood pressure 150/115, respiratory rate 18, and pulse 80. CHEST: Decreased breath sounds. No wheezing. CARDIAC: Normal S1, S2. No gallops. ABDOMEN: No masses. ASSESSMENT: Intraparenchymal hemorrhage. Encephalopathy. PT and supportive care. Continue PEG. We will follow. Job ID: [id number]
[2019-05-25] MEDS: Metoprolol Tartrate 5 MG/5 ML VIAL IVP PRN ×2 (14:13→18:04)
--- NOTE | 2019-05-25 15:26 | PDOC.HOSPP ---
- Subjective Subjective: Non-verbal. Tends to sleep much of the time. Occasional agitation and pulling of NGT. - Objective Vital Signs & Weight: Vital Signs (12 hours) Temp BP BP BP Pulse Ox 05/25/19 12:10 98.9 F 05/25/19 10:26 159/106 H 156/123 H 05/25/19 09:28 150/115 H 05/25/19 08:00 98 05/25/19 07:22 98.6 F 05/25/19 05:20 98.9 F 05/25/19 04:26 100.1 F H Weight Admit Weight 213 lb 6.519 oz Weight 220 lb 7.396 oz Most Recent Monitor Data Heart Rate from ECG 117 NIBP 160/127 NIBP BP-Mean 138 Respiration from ECG 21 SpO2 98 I&O: 05/24/19 05/25/19 05/26/19 06:59 06:59 06:59 Intake Total 2512 1080 30 Output Total 2583 1710 Balance -71 630 30 Result Diagrams: 05/23/19 03:30 05/25/19 04:08 Additional Labs: Accuchecks 05/25/19 05/25/19 05/25/19 12:07 05:24 00:00 POC Glucose 99 117 H 131 H 05/24/19 05/24/19 18:17 11:30 POC Glucose 75 101 Hospitalist ROS - Medication Medications: Active Medications Generic Name Dose Route Start Last Admin Trade Name Freq PRN Reason Stop Dose Admin Acetaminophen 650 mg 05/22/19 23:17 05/23/19 16:11 Tylenol [place] 650 mg Q4H PRN Administration Headache/Fever or Pain Amlodipine Besylate 10 mg 05/24/19 09:00 05/25/19 09:28 Norvasc PO 10 mg DAILY CRUZ Administration Clonidine 0.1 mg 05/23/19 15:27 05/23/19 23:35 Catapres PO 0.1 mg Q4H PRN Administration SBP GREATER THAN 160 Famotidine 20 mg 05/21/19 21:00 05/25/19 09:29 Pepcid SLOW IVP 20 mg Q12HR CRUZ Administration Sodium Chloride 1,000 mls @ 60 mls/hr 05/21/19 22:15 05/25/19 09:29 Normal Saline 0.9% IV 1,000 mls .[id number] CRUZ Administration Acetaminophen 1,000 mg/ Device 100 mls @ 400 mls/hr 05/24/19 17:55 05/25/19 03:44 IVPB 05/25/19 17:56 100 mls Q6H PRN Administration Fever/Mild Pain Metoprolol Tartrate 5 mg 05/23/19 02:19 05/25/19 14:13 Lopressor IVP 5 mg Q3H PRN Administration HR > 110 Sodium Chloride 10 ml 05/21/19 21:00 05/25/19 09:29 Flush - Normal Saline IVF 10 ml Q12HR CRUZ Administration - Exam General Appearance: NAD, awake alert Heart: RRR, no murmur, no gallops, no rubs, normal peripheral pulses Respiratory: CTAB, no wheezes, no rales, no ronchi, normal chest expansion, no tachypnea, normal percussion Gastrointestinal: soft, non-tender, non-distended, normal bowel sounds, no palpable masses, no hepatomegaly, no splenomegaly, no bruit Extremities - other findings: Mild right puffy edema related to immobility. Neurological - other findings: Right hemiplegia. Psychiatric: somnolent Psychiatric - other findings: Does awaken and move left side Hosp A/P (1) Dysphagia Code(s): R13.10 - DYSPHAGIA, UNSPECIFIED Status: Acute (2) Cerebral parenchymal hemorrhage Code(s): I61.9 - NONTRAUMATIC INTRACEREBRAL HEMORRHAGE, UNSPECIFIED Status: Acute (3) Hemiplegia affecting right dominant side Code(s): G81.91 - HEMIPLEGIA, UNSPECIFIED AFFECTING RIGHT DOMINANT SIDE Status : Acute (4) Leukocytosis Code(s): D72.829 - ELEVATED WHITE BLOOD CELL COUNT, UNSPECIFIED Status: Acute - Plan BP has been up significantly today. Only has PRN for tachycardia. Will add PRN Hydralazine for BP. PEG planned for this afternoon. Recheck labs in am. Extremely difficult social situation. Continue to manage BP, PEG placement and establishing feeds, PT/OT/ENVIRONMENTAL HEALTH PHYSICIAN. Would ultimately likely benefit from rehab, but placement will be challenging.
[2019-05-25] MEDS: hydrALAZINE 20 MG/ML VIAL SLOW IVP PRN (16:16)
--- NOTE | 2019-05-25 20:36 | CON ---
DATE OF CONSULTATION: HISTORY OF PRESENT ILLNESS: Mona Fallon is a 68-year-old female, visiting her daughter, 30 years old, who has metastatic breast cancer. The daughter is about to go on hospice. While visiting, the patient had a subarachnoid bleed, seen by Neurosurgery, and has a right hemiparesis. She notes she is now starting to speak. I have been asked to see her regarding PEG tube. Speech Therapy, however, has not evaluated her. Daughter who wants to wait until Speech Therapy evaluates her to assure that she needs the PEG tube. The patient has had some neurological improvement today. We will resume her tube feedings and await Speech Therapy evaluation and pending results. Could place a PEG tube if appropriate afterwards. ALLERGIES: NONE. PAST MEDICAL HISTORY: Unremarkable according to the records, except noted hypertensive crisis in the emergency room at the time of her stroke. PHYSICAL EXAMINATION: GENERAL: The patient is awake, makes eye contact with does not speak at this time. Her nurse reports that she does speak occasionally. VITAL SIGNS: Temperature 100.7 degrees. Blood pressure . LUNGS: Clear to auscultation. No wheezing. CARDIAC: Regular rate and rhythm without murmur or gallop. ABDOMEN: Soft, nontender. ASSESSMENT AND PLAN: Stroke. We will plan PEG tube if appropriate after speech evaluation, swallowing. Job ID: [id number]
--- NOTE | 2019-05-25 23:04 | RAD ---
ABDOMEN ONE VIEW: 05/25/19 HISTORY: Nasogastric tube placement. FINDINGS/IMPRESSION: There is a nasogastric tube with tip in the stomach to the left of midline. There are degenerative ch anges with levoscoliosis of the lumbar spine. The bowel gas pattern is unremarkable. POS: H
[2019-05-26] MEDS: cloNIDine 0.1 MG TAB PO PRN ×2 (01:11→22:44)
[2019-05-26 03:58] LABS: ALT (SGPT) 16 U/L (8-55); AST (SGOT) 22 U/L (5-34); Albumin 3.9 g/dL (3.4-4.8); Alkaline Phosphatase 76 U/L (40-110); Anion Gap 11 mmol/L (10-20); BUN (Urea Nitrogen) 21 mg/dL (9.8-20.1); Bilirubin, Total 0.6 mg/dL (0.2-1.2); Calc. Creatinine Clearance 116 mL/min (70-130); Calcium 8.9 mg/dL (7.8-10.44); Carbon Dioxide 24 mmol/L (23-31); Chloride 106 mmol/L (98-107); Estimated GFR-MDRD 79; Globulin 2.5 g/dL (2.4-3.5); Glucose 123 mg/dL (80-115); Potassium 3.2 mmol/L (3.5-5.1); Protein, Total 6.4 g/dL (6.0-8.3); Sodium 138 mmol/L (136-145)
[2019-05-26] MEDS: Morphine 2 MG/ML SYRINGE SLOW IVP PRN (04:28)
[2019-05-26] MEDS: Sodium Chloride 0.9% 1,000 ML IV SCH ×2 (04:35→21:15)
[2019-05-26] MEDS: Famotidine/PF 20 mg/2ml Vial SLOW IVP SCH ×2 (09:29→21:11)
[2019-05-26] MEDS: Amlodipine 10 MG TAB PO SCH (09:29)
--- NOTE | 2019-05-26 11:48 | PRG ---
DATE OF SERVICE: 05/26/2019 SUBJECTIVE: This morning, she is much more awake and responsive. Speech has started to do a swallow test on her this morning, to decide whether she needs a PEG. OBJECTIVE: VITAL SIGNS: Blood pressure 138/94, pulse 120, respirations 18, and saturations are 99%. CHEST: Decreased breath sounds. No wheezing. CARDIAC: Normal S1 and S2. No gallops. ABDOMEN: No masses. ASSESSMENT: Intracerebral hemorrhage, respiratory failure, and dysphagia. PLAN: Continue supportive care. Family will make a decision regarding a PEG in the next several days. Job ID: [id number]
--- NOTE | 2019-05-26 11:51 | PDOC.HOSPP ---
- Subjective Encounter Date: 05/26/19 Encounter Time: 11:49 Subjective: Doing ok. Not verbal with me. She did have a family friend here today who could communicate with her. She thinks Ms. Fallon has some comprehension, but still had some issues with speech. Only could get a few words or phrases. Has pulled out 4 NGT's. - Objective Vital Signs & Weight: Vital Signs (12 hours) Temp BP Pulse Ox 05/26/19 09:29 138/94 H 05/26/19 07:52 98 05/26/19 07:05 99.3 F 05/26/19 04:10 99.5 F 05/26/19 01:11 170/91 H 05/26/19 00:01 99.2 F Weight Admit Weight 213 lb 6.519 oz Weight 218 lb 8 oz Most Recent Monitor Data Heart Rate from ECG 93 NIBP 171/94 NIBP BP-Mean 119 Respiration from ECG 17 SpO2 99 I&O: 05/25/19 05/26/19 05/27/19 06:59 06:59 06:59 Intake Total 1080 1280 30 Output Total 1710 650 Balance -630 630 30 Result Diagrams: 05/23/19 03:30 05/26/19 03:22 Additional Labs: Accuchecks 05/26/19 05/26/19 05/25/19 05:42 00:12 18:04 POC Glucose 141 H 96 97 05/25/19 12:07 POC Glucose 99 Hospitalist ROS - Medication Medications: Active Medications Generic Name Dose Route Start Last Admin Trade Name Freq PRN Reason Stop Dose Admin Acetaminophen 650 mg 05/22/19 23:17 05/23/19 16:11 Tylenol [place] 650 mg Q4H PRN Administration Headache/Fever or Pain Amlodipine Besylate 10 mg 05/24/19 09:00 05/26/19 09:29 Norvasc PO 10 mg DAILY CRUZ Administration Clonidine 0.1 mg 05/23/19 15:27 05/26/19 01:11 Catapres PO 0.1 mg Q4H PRN Administration SBP GREATER THAN 160 Famotidine 20 mg 05/21/19 21:00 05/26/19 09:29 Pepcid SLOW IVP 20 mg Q12HR CRUZ Administration Hydralazine HCl 10 mg 05/25/19 15:21 05/25/19 16:16 Apresoline SLOW IVP 10 mg Q4H PRN Administration Hypertension Sodium Chloride 1,000 mls @ 60 mls/hr 05/21/19 22:15 05/26/19 04:35 Normal Saline 0.9% IV 1,000 mls .[id number] CRUZ Administration Metoprolol Tartrate 5 mg 05/23/19 02:19 05/25/19 18:04 Lopressor IVP 5 mg Q3H PRN Administration HR > 110 Morphine Sulfate 0.5 mg 05/26/19 03:42 05/26/19 04:28 Morphine SLOW IVP 0.5 mg Q6H PRN Administration Moderate Pain (4-6) Sodium Chloride 10 ml 05/21/19 21:00 05/26/19 09:30 Flush - Normal Saline IVF 10 ml Q12HR CRUZ Administration - Exam General Appearance: NAD, awake alert Neck: supple, symmetric, no JVD, no thyromegaly, no lymphadenopathy, no carotid bruit Heart: RRR, no murmur, no gallops, no rubs, normal peripheral pulses Respiratory: CTAB, no wheezes, no rales, no ronchi, normal chest expansion, no tachypnea, normal percussion Gastrointestinal: soft, non-distended, normal bowel sounds, no palpable masses, no hepatomegaly, no splenomegaly, no bruit Extremities: no edema Skin: normal turgor Neurological - other findings: R hemiplegia and mixed aphasia. Psychiatric - other findings: Intermittently lethargic. Hosp A/P (1) Cerebral parenchymal hemorrhage Code(s): I61.9 - NONTRAUMATIC INTRACEREBRAL HEMORRHAGE, UNSPECIFIED Status: Acute (2) Dysphagia Code(s): R13.10 - DYSPHAGIA, UNSPECIFIED Status: Acute (3) Hemiplegia affecting right dominant side Code(s): G81.91 - HEMIPLEGIA, UNSPECIFIED AFFECTING RIGHT DOMINANT SIDE Status : Acute (4) Leukocytosis Code(s): D72.829 - ELEVATED WHITE BLOOD CELL COUNT, UNSPECIFIED Status: Acute (5) Mixed aphasia Code(s): R47.01 - APHASIA Status: Acute (6) HTN (hypertension) Code(s): I10 - ESSENTIAL (PRIMARY) HYPERTENSION Status: Acute - Plan BP has been a little better so far today. It has been variable. May need to add more PO's. PRN Lopressor for tachycardia. PRN Hydralazine for BP. Discussed with DISTRICT RECRUITER. She did the beside eval and she did better than expected. Still has concerns that she will not be able obtain adequate nutrition. Will plan for MBS tomorrow. Recheck labs in am. Extremely difficult social situation. Continue to manage BP, swallow and establishing feeds, PT/OT/DISTRICT RECRUITER. Would ultimately likely benefit from rehab, but placement will be challenging.
--- NOTE | 2019-05-26 16:16 | EKG ---
Test Reason : Blood Pressure : / mmHG Vent. Rate : 123 BPM Atrial Rate : 123 BPM P-R Int : 142 ms QRS Dur : 094 ms QT Int : 356 ms P-R-T Axes : 068 -42 059 degrees QTc Int : 509 ms Sinus tachycardia with occasional Premature ventricular complexes Left axis deviation Incomplete right bundle branch block Left ventricular hypertrophy with repolarization abnormality Abnormal ECG Confirmed by DR. Jv HILTON ([id number]) on 05/26/2019 4:15:59 PM Referred By: LELA Confirmed By:DR. Jv HILTON
[2019-05-26] MEDS: Metoprolol Tartrate 5 MG/5 ML VIAL IVP PRN (21:08)
[2019-05-27] MEDS: Morphine 2 MG/ML SYRINGE SLOW IVP PRN (01:57)
[2019-05-27] MEDS ORDERED: Morphine 4 MG/ML VIAL SLOW IVP SCH (02:15)
[2019-05-27] MEDS: Metoprolol Tartrate 5 MG/5 ML VIAL IVP PRN (02:21)
[2019-05-27 07:03] LABS: ALT (SGPT) 17 U/L (8-55); AST (SGOT) 21 U/L (5-34); Alkaline Phosphatase 79 U/L (40-110); Anion Gap 11 mmol/L (10-20); BUN (Urea Nitrogen) 19 mg/dL (9.8-20.1); Bilirubin, Total 0.6 mg/dL (0.2-1.2); Calc. Creatinine Clearance 117 mL/min (70-130); Calcium 9.2 mg/dL (7.8-10.44); Carbon Dioxide 25 mmol/L (23-31); Chloride 106 mmol/L (98-107); Estimated GFR-MDRD 81; Globulin 2.6 g/dL (2.4-3.5); Glucose 124 mg/dL (80-115); Potassium 3.5 mmol/L (3.5-5.1); Protein, Total 6.6 g/dL (6.0-8.3); Sodium 138 mmol/L (136-145)
[2019-05-27] MEDS: Amlodipine 10 MG TAB PO SCH (08:00)
[2019-05-27] MEDS: Famotidine/PF 20 mg/2ml Vial SLOW IVP SCH ×2 (09:41→21:08)
--- NOTE | 2019-05-27 10:55 | PDOC.HOSPP ---
- Subjective Encounter Date: 05/27/19 Encounter Time: 10:52 Subjective: About the same. A little somnolent this morning. - Objective Vital Signs & Weight: Vital Signs (12 hours) Temp Pulse BP Pulse Ox 05/27/19 10:00 97 05/27/19 08:00 96 132/88 05/27/19 07:33 99.4 F 05/27/19 04:00 99.8 F H 05/26/19 23:24 98.6 F Weight Admit Weight 213 lb 6.519 oz Weight 219 lb 11.2 oz Most Recent Monitor Data Heart Rate from ECG 93 NIBP 140/88 NIBP BP-Mean 105 Respiration from ECG 17 SpO2 99 I&O: 05/26/19 05/27/19 05/28/19 06:59 06:59 06:59 Intake Total 1280 2780 Output Total 650 1900 Balance 630 880 Result Diagrams: 05/23/19 03:30 05/27/19 06:18 Additional Labs: Accuchecks 05/27/19 05/27/19 05/26/19 06:07 00:19 18:26 POC Glucose 95 131 H 116 H 05/26/19 12:10 POC Glucose 116 H Hospitalist ROS - Medication Medications: Active Medications Generic Name Dose Route Start Last Admin Trade Name Freq PRN Reason Stop Dose Admin Acetaminophen 650 mg 05/22/19 23:17 05/23/19 16:11 Tylenol [place] 650 mg Q4H PRN Administration Headache/Fever or Pain Amlodipine Besylate 10 mg 05/24/19 09:00 05/27/19 08:00 Norvasc PO 10 mg DAILY CRUZ Administration Clonidine 0.1 mg 05/23/19 15:27 05/26/19 22:44 Catapres PO 0.1 mg Q4H PRN Administration SBP GREATER THAN 160 Famotidine 20 mg 05/21/19 21:00 05/27/19 09:41 Pepcid SLOW IVP 20 mg Q12HR CRUZ Administration Hydralazine HCl 10 mg 05/25/19 15:21 05/25/19 16:16 Apresoline SLOW IVP 10 mg Q4H PRN Administration Hypertension Sodium Chloride 1,000 mls @ 60 mls/hr 05/21/19 22:15 05/26/19 21:15 Normal Saline 0.9% IV 1,000 mls .[id number] CRUZ Administration Metoprolol Tartrate 5 mg 05/23/19 02:19 05/27/19 02:21 Lopressor IVP 5 mg Q3H PRN Administration HR > 110 Sodium Chloride 10 ml 05/21/19 21:00 05/27/19 09:41 Flush - Normal Saline IVF Not Given Q12HR CRUZ Sodium Chloride 10 ml 05/21/19 14:16 05/27/19 02:32 Flush - Normal Saline IVF 10 ml PRN PRN Administration Saline Flush - Exam General Appearance: NAD, awake alert General - other findings: Somnlent Heart: RRR, no murmur, no gallops, no rubs, normal peripheral pulses Respiratory: CTAB, no wheezes, no rales, no ronchi, normal chest expansion, no tachypnea, normal percussion Gastrointestinal: soft, non-distended, normal bowel sounds, no palpable masses, no hepatomegaly, no splenomegaly, no bruit Extremities: no cyanosis, no clubbing, no edema Skin: normal turgor Skin - other findings: Puffy edema RUE from immobility. Musculoskeletal: normal tone Hosp A/P (1) Cerebral parenchymal hemorrhage Code(s): I61.9 - NONTRAUMATIC INTRACEREBRAL HEMORRHAGE, UNSPECIFIED Status: Acute (2) Dysphagia Code(s): R13.10 - DYSPHAGIA, UNSPECIFIED Status: Acute (3) Hemiplegia affecting right dominant side Code(s): G81.91 - HEMIPLEGIA, UNSPECIFIED AFFECTING RIGHT DOMINANT SIDE Status : Acute (4) Leukocytosis Code(s): D72.829 - ELEVATED WHITE BLOOD CELL COUNT, UNSPECIFIED Status: Acute (5) Mixed aphasia Code(s): R47.01 - APHASIA Status: Acute (6) HTN (hypertension) Code(s): I10 - ESSENTIAL (PRIMARY) HYPERTENSION Status: Acute - Plan BP has been variable. Overall, still too high. On Amlodpine and backed up by several prn's. Will add oral metoprolol. Discussed with WATER TREATMENT PLANT SUPERVISOR. She did the beside eval and she did better than expected. Still has concerns that she will not be able obtain adequate nutrition. Will plan for MBS today. Extremely difficult social situation. Continue to manage BP, swallow and establishing feeds, PT/OT/WATER TREATMENT PLANT SUPERVISOR. Would ultimately likely benefit from rehab, but placement will be challenging.
[2019-05-27] MEDS ORDERED: Metoprolol Tartrate 25 MG TAB PER TUBE SCH (14:15)
--- NOTE | 2019-05-27 14:26 | RAD ---
MODIFIED BARIUM SWALLOW IN THE PRESENCE OF SPEECH PATHOLOGIST: HISTORY: Dysphagia, unspecified. Feeding difficulties. EXPOSURE: 0.73 uGy*^cm2; 1.5 minutes. FINDINGS: In the presence of speech pathologist, the patient was administered thin liquid, nectar thick, puddin g consistencies. Premature spillage and pooling of the vallecula with all aforementioned consistencies. No penetration and aspiration. IMPRESSION: Please refer to speech pathologist report for feeding recommendation. Transcribed Date/Time: 05/27/2019 2:25 PM
--- NOTE | 2019-05-27 15:16 | ULT ---
RIGHT UPPER EXTREMITY VENOUS ULTRASOUND WITH DOPPLER: HISTORY: Edema. Swelling. Evaluate for thrombus. COMPARISON: None. TECHNIQUE: Grayscale, color flow, Doppler imaging and spectral waveform analysis performed of the right upper ex tremity venous system. FINDINGS: There is compressibility and flow in the jugular vein. There is flow in the subclavian vein. There is compressibility and flow in the axillary vein. There is compressibility and flow in the brachial vein, basilic vein, cephalic vein, radial vein and ulnar vein. IMPRESSION: No evidence of thrombus in the right upper extremity venous system. Transcribed Date/Time: 05/27/2019 3:32 PM
[2019-05-27] MEDS: Sodium Chloride 0.9% 1,000 ML IV SCH (17:03)
--- NOTE | 2019-05-27 17:15 | PRG ---
DATE OF SERVICE: 05/27/2019 SUBJECTIVE: Mona Fallon remains clinically unchanged. She is still doing an excellent job by protecting her airway. OBJECTIVE: VITAL SIGNS: She is afebrile. Heart rate is 85, blood pressure 135/86. LUNGS: Clear. HEART: Regular rhythm. ABDOMEN: Soft. She had a right upper extremity venous ultrasound today that did not show a clot. She had a modified barium swallow today. IMPRESSION: Hemorrhagic CVA, likely secondary to uncontrolled hypertension. PLAN: Continue supportive care. I would be surprised if she could take an adequate amount of nutrition orally at this point in time. A PEG may be the best option. Job ID: [id number]
[2019-05-27] MEDS: Metoprolol Tartrate 25 MG TAB PER TUBE SCH (23:49)
[2019-05-28] MEDS: Sodium Chloride 0.9% 1,000 ML IV SCH ×2 (05:15→21:57)
[2019-05-28 05:24] LABS: ALT (SGPT) 14 U/L (8-55); AST (SGOT) 18 U/L (5-34); Albumin 3.7 g/dL (3.4-4.8); Alkaline Phosphatase 77 U/L (40-110); Anion Gap 15 mmol/L (10-20); BUN (Urea Nitrogen) 18 mg/dL (9.8-20.1); Bilirubin, Total 0.5 mg/dL (0.2-1.2); Calc. Creatinine Clearance 125 mL/min (70-130); Calcium 9.1 mg/dL (7.8-10.44); Carbon Dioxide 21 mmol/L (23-31); Chloride 104 mmol/L (98-107); Estimated GFR-MDRD 86; Globulin 2.7 g/dL (2.4-3.5); Glucose 136 mg/dL (80-115); Potassium 3.6 mmol/L (3.5-5.1); Protein, Total 6.4 g/dL (6.0-8.3); Sodium 136 mmol/L (136-145)
--- NOTE | 2019-05-28 08:53 | PRG ---
DATE OF SERVICE: 05/28/2019 SUBJECTIVE: Mona Fallon is clinically unchanged. She is still protecting her airway. OBJECTIVE: VITAL SIGNS: She is afebrile. She is on room air oximetry in high 90s. Respiratory rates in the teens. Heart rate is 94, blood pressure 149/88. LUNGS: Unchanged. HEART: Unchanged. ABDOMEN: Unchanged. IMPRESSION: Hemorrhagic cerebrovascular accident, likely secondary to untreated hypertension. Electrolytes are unremarkable today. Continue supportive care. She would likely benefit from a percutaneous endoscopic gastrostomy. Job ID: [id number]
[2019-05-28] MEDS: Metoprolol Tartrate 25 MG TAB PER TUBE SCH ×2 (09:06→19:58)
[2019-05-28] MEDS: Amlodipine 10 MG TAB PO SCH (09:07)
[2019-05-28] MEDS: Famotidine/PF 20 mg/2ml Vial SLOW IVP SCH ×2 (09:09→21:05)
--- NOTE | 2019-05-28 16:44 | PDOC.HOSPP ---
- Subjective Subjective: Doing about the same. Spoke with the family friend who speaks Barbadian and she indicated the patient is about the same. She did have a little improvement when she go her daughter on the phone from [facility]. She has pulled out another NGT. - Objective Vital Signs & Weight: Vital Signs (12 hours) Temp Pulse Pulse Pulse BP BP BP 05/28/19 16:20 99.2 F 05/28/19 13:20 96 93 137/99 H 143/93 H 05/28/19 09:07 96 152/98 H 05/28/19 07:01 98.6 F Pulse Ox Pulse Ox 05/28/19 16:20 05/28/19 13:20 95 95 05/28/19 09:07 05/28/19 07:01 Weight Admit Weight 216 lb 4.375 oz Weight 226 lb 2 oz Most Recent Monitor Data Heart Rate from ECG 111 NIBP 159/98 NIBP BP-Mean 118 Respiration from ECG 19 SpO2 89 I&O: 05/27/19 05/28/19 05/29/19 06:59 06:59 06:59 Intake Total 2780 2231 30 Output Total 1900 1515 Balance 880 716 30 Result Diagrams: 05/23/19 03:30 05/28/19 04:32 Additional Labs: Accuchecks 05/28/19 05/28/19 05/28/19 13:19 06:17 00:06 POC Glucose 125 H 117 H 98 05/27/19 18:05 POC Glucose 138 H Hospitalist ROS - Medication Medications: Active Medications Generic Name Dose Route Start Last Admin Trade Name Freq PRN Reason Stop Dose Admin Acetaminophen 650 mg 05/22/19 23:17 05/23/19 16:11 Tylenol [place] 650 mg Q4H PRN Administration Headache/Fever or Pain Amlodipine Besylate 10 mg 05/24/19 09:00 05/28/19 09:07 Norvasc PO 10 mg DAILY CRUZ Administration Clonidine 0.1 mg 05/23/19 15:27 05/26/19 22:44 Catapres PO 0.1 mg Q4H PRN Administration SBP GREATER THAN 160 Famotidine 20 mg 05/21/19 21:00 05/28/19 09:09 Pepcid SLOW IVP 20 mg Q12HR CRUZ Administration Hydralazine HCl 10 mg 05/25/19 15:21 05/25/19 16:16 Apresoline SLOW IVP 10 mg Q4H PRN Administration Hypertension Sodium Chloride 1,000 mls @ 60 mls/hr 05/21/19 22:15 05/28/19 05:15 Normal Saline 0.9% IV 1,000 mls .[id number] CRUZ Administration Metoprolol Tartrate 5 mg 05/23/19 02:19 05/27/19 02:21 Lopressor IVP 5 mg Q3H PRN Administration HR > 110 Metoprolol Tartrate 12.5 mg 05/27/19 21:00 05/28/19 09:06 Lopressor PER TUBE 12.5 mg BID CRUZ Administration Sodium Chloride 10 ml 05/21/19 21:00 05/28/19 09:09 Flush - Normal Saline IVF 10 ml Q12HR CRUZ Administration Sodium Chloride 10 ml 05/21/19 14:16 05/27/19 02:32 Flush - Normal Saline IVF 10 ml PRN PRN Administration Saline Flush - Exam General Appearance: NAD, awake alert Heart: RRR, no murmur, no gallops, no rubs, normal peripheral pulses Respiratory: CTAB, no wheezes, no rales, no ronchi, normal chest expansion, no tachypnea, normal percussion Gastrointestinal: soft, non-tender, non-distended, normal bowel sounds, no palpable masses, no hepatomegaly, no splenomegaly, no bruit Extremities - other findings: RUE edema much improved. Skin: normal turgor Neurological - other findings: Right hemiplegia. Mixed aphasia. Psychiatric: not oriented Hosp A/P (1) Cerebral parenchymal hemorrhage Code(s): I61.9 - NONTRAUMATIC INTRACEREBRAL HEMORRHAGE, UNSPECIFIED Status: Acute (2) Dysphagia Code(s): R13.10 - DYSPHAGIA, UNSPECIFIED Status: Acute (3) Hemiplegia affecting right dominant side Code(s): G81.91 - HEMIPLEGIA, UNSPECIFIED AFFECTING RIGHT DOMINANT SIDE Status : Acute (4) Leukocytosis Code(s): D72.829 - ELEVATED WHITE BLOOD CELL COUNT, UNSPECIFIED Status: Acute (5) Mixed aphasia Code(s): R47.01 - APHASIA Status: Acute (6) HTN (hypertension) Code(s): I10 - ESSENTIAL (PRIMARY) HYPERTENSION Status: Acute - Plan BP has been variable. Overall, still too high. No NGT now. IV prn's. Discussed with [employer] [address] [employer] DEVELOPER. She did the beside eval and she did better than expected. Still has concerns that she will not be able obtain adequate nutrition. MBS was not reassuring and there would be risk with any po's. Her daughter is no longer able to make decisions regarding her mother's care. Daughter's is stepping into that role. He has agreed to the PEG. Risks and benefits were discussed. Unfortunately, his (patient's daughter) just had a PEG placed as well. Discussed with surgery. Will keep the NGT out and keep NPO. PEG tomorrow. There will be risk of her pulling that out as well. Bolus feeds and abd. binder to reduce risk. Extremely difficult social situation. Continue to manage BP, swallow and establishing feeds, PT/OT/[employer] [address] SQL DEVELOPER. Would ultimately likely benefit from rehab, but placement will be challenging. Can move to stroke floor.
[2019-05-28] MEDS ORDERED: CEFAZOLIN 2 GM in Premix Bag 1 BAG IVPB SCH (17:00)
[2019-05-28] MEDS: Metoprolol Tartrate 5 MG/5 ML VIAL IVP PRN (23:52)
[2019-05-29] MEDS: hydrALAZINE 20 MG/ML VIAL SLOW IVP PRN ×2 (03:21→09:11)
[2019-05-29 04:23] LABS: ALT (SGPT) 11 U/L (8-55); AST (SGOT) 16 U/L (5-34); Albumin 3.7 g/dL (3.4-4.8); Alkaline Phosphatase 80 U/L (40-110); Anion Gap 15 mmol/L (10-20); BUN (Urea Nitrogen) 15 mg/dL (9.8-20.1); Bilirubin, Total 0.7 mg/dL (0.2-1.2); Calc. Creatinine Clearance 128 mL/min (70-130); Calcium 9.4 mg/dL (7.8-10.44); Carbon Dioxide 22 mmol/L (23-31); Chloride 103 mmol/L (98-107); Estimated GFR-MDRD 86; Globulin 2.9 g/dL (2.4-3.5); Glucose 112 mg/dL (80-115); Potassium 3.8 mmol/L (3.5-5.1); Protein, Total 6.6 g/dL (6.0-8.3); Sodium 136 mmol/L (136-145)
[2019-05-29] MEDS: Amlodipine 10 MG TAB PO SCH (07:39)
[2019-05-29] MEDS: Metoprolol Tartrate 25 MG TAB PER TUBE SCH ×2 (07:40→20:22)
[2019-05-29] MEDS: Famotidine/PF 20 mg/2ml Vial SLOW IVP SCH ×2 (09:11→20:22)
[2019-05-29] MEDS: Metoprolol Tartrate 5 MG/5 ML VIAL IVP PRN ×3 (10:52→20:22)
[2019-05-29] MEDS: Sodium Chloride 0.9% 1,000 ML IV SCH (14:36)
--- NOTE | 2019-05-29 16:51 | PRG ---
DATE OF SERVICE: 05/29/2019 SUBJECTIVE: Mona Fallon remains stable. She is still protecting her airway. OBJECTIVE: VITAL SIGNS: She is afebrile. Heart rate is 105 to 114 today. Blood pressure is elevated today 172/108 at 2 o'clock. Blood pressures overnight were most part controlled, although some of the pressures did get up in the 160 range. IMPRESSION: Parenchymal brain hemorrhage, likely secondary to untreated hypertension. PLAN: Continue adjustment of blood pressure medicines. We will follow from a distance. Please feel free to re-consult if she developed airway issues or respiratory distress. Job ID: [id number]
--- NOTE | 2019-05-29 18:24 | PRG ---
DATE OF SERVICE: 05/29/2019 Mona Fallon is in need of a PEG tube. Family has consented. Unfortunately, OR does not have the resource to do today and that has to be postponed until tomorrow. Job ID: [id number]
[2019-05-30 06:07] LABS: ALT (SGPT) 9 U/L (8-55); AST (SGOT) 14 U/L (5-34); Albumin 3.7 g/dL (3.4-4.8); Alkaline Phosphatase 78 U/L (40-110); Anion Gap 12 mmol/L (10-20); BUN (Urea Nitrogen) 22 mg/dL (9.8-20.1); Bilirubin, Total 0.8 mg/dL (0.2-1.2); Calc. Creatinine Clearance 126 mL/min (70-130); Calcium 9.2 mg/dL (7.8-10.44); Carbon Dioxide 23 mmol/L (23-31); Chloride 105 mmol/L (98-107); Estimated GFR-MDRD 85; Globulin 2.9 g/dL (2.4-3.5); Glucose 109 mg/dL (80-115); Potassium 3.7 mmol/L (3.5-5.1); Protein, Total 6.6 g/dL (6.0-8.3); Sodium 136 mmol/L (136-145)
[2019-05-30] MEDS: Sodium Chloride 0.9% 1,000 ML IV SCH (06:13)
[2019-05-30] MEDS: Metoprolol Tartrate 25 MG TAB PER TUBE SCH ×2 (08:59→20:54)
[2019-05-30] MEDS: Amlodipine 10 MG TAB PO SCH (08:59)
[2019-05-30] MEDS ORDERED: hydrALAZINE 20 MG/ML VIAL SLOW IVP PRN (09:05)
[2019-05-30] MEDS: Famotidine/PF 20 mg/2ml Vial SLOW IVP SCH ×2 (09:05→20:54)
--- NOTE | 2019-05-30 09:17 | PDOC.HOSPP ---
- Subjective Encounter Date: 05/30/19 Encounter Time: 09:14 Subjective: No change in mental status. - Objective Vital Signs & Weight: Vital Signs (12 hours) Temp Pulse BP Pulse Ox 05/30/19 08:59 104 H 167/106 H 05/30/19 08:00 98 05/30/19 07:44 99.0 F 05/30/19 03:34 99.4 F 05/29/19 23:37 99.4 F Weight Admit Weight 216 lb 4.375 oz Weight 220 lb 8 oz Most Recent Monitor Data Heart Rate from ECG 107 NIBP 149/103 NIBP BP-Mean 118 Respiration from ECG 19 SpO2 97 I&O: 05/29/19 05/30/19 05/31/19 06:59 06:59 06:59 Intake Total 1455 750 Output Total 2525 1000 Balance -1070 -250 Result Diagrams: 05/23/19 03:30 05/30/19 05:11 Additional Labs: Accuchecks 05/30/19 05/30/19 05/29/19 05:34 00:21 18:08 POC Glucose 107 107 115 H 05/29/19 05/29/19 12:19 05:40 POC Glucose 109 100 Hospitalist ROS - Medication Medications: Active Medications Generic Name Dose Route Start Last Admin Trade Name Freq PRN Reason Stop Dose Admin Acetaminophen 650 mg 05/22/19 23:17 05/23/19 16:11 Tylenol [place] 650 mg Q4H PRN Administration Headache/Fever or Pain Amlodipine Besylate 10 mg 05/24/19 09:00 05/30/19 08:59 Norvasc PO Not Given DAILY CRUZ Clonidine 0.1 mg 05/23/19 15:27 05/26/19 22:44 Catapres PO 0.1 mg Q4H PRN Administration SBP GREATER THAN 160 Famotidine 20 mg 05/21/19 21:00 05/30/19 09:05 Pepcid SLOW IVP 20 mg Q12HR CRUZ Administration Sodium Chloride 1,000 mls @ 60 mls/hr 05/21/19 22:15 05/30/19 06:13 Normal Saline 0.9% IV 1,000 mls .[id number] CRUZ Administration Metoprolol Tartrate 5 mg 05/23/19 02:19 05/29/19 20:22 Lopressor IVP 5 mg Q3H PRN Administration HR > 110 Metoprolol Tartrate 12.5 mg 05/27/19 21:00 05/30/19 08:59 Lopressor PER TUBE Not Given BID CRUZ Sodium Chloride 10 ml 05/21/19 21:00 05/30/19 09:05 Flush - Normal Saline IVF 10 ml Q12HR CRUZ Administration Sodium Chloride 10 ml 05/21/19 14:16 05/27/19 02:32 Flush - Normal Saline IVF 10 ml PRN PRN Administration Saline Flush - Exam General Appearance: NAD, awake alert Heart: RRR, no murmur, no gallops, no rubs, normal peripheral pulses Respiratory: CTAB, no wheezes, no rales, no ronchi, normal chest expansion, no tachypnea, normal percussion Gastrointestinal: soft, non-tender, non-distended, normal bowel sounds, no palpable masses, no hepatomegaly, no splenomegaly, no bruit Skin: normal turgor Neurological - other findings: Mixed aphasic Musculoskeletal: normal tone Psychiatric: not oriented Hosp A/P (1) Cerebral parenchymal hemorrhage Code(s): I61.9 - NONTRAUMATIC INTRACEREBRAL HEMORRHAGE, UNSPECIFIED Status: Acute (2) Dysphagia Code(s): R13.10 - DYSPHAGIA, UNSPECIFIED Status: Resolved (3) Hemiplegia affecting right dominant side Code(s): G81.91 - HEMIPLEGIA, UNSPECIFIED AFFECTING RIGHT DOMINANT SIDE Status : Acute (4) Leukocytosis Code(s): D72.829 - ELEVATED WHITE BLOOD CELL COUNT, UNSPECIFIED Status: Resolved (5) Mixed aphasia Code(s): R47.01 - APHASIA Status: Acute (6) HTN (hypertension) Code(s): I10 - ESSENTIAL (PRIMARY) HYPERTENSION Status: Acute - Plan BP has been variable. Overall, still too high. No NGT now. IV prn's. Will increase the Labetalol. Schedule IV meds. Discussed with SHOTBLASTER. She did the beside eval and she did better than expected. Still has concerns that she will not be able obtain adequate nutrition. MBS was not reassuring and there would be risk with any po's. Her daughter and her son-in-law has given consent for PEG. Risks and benefits were discussed. Discussed with surgery. Will keep the NGT out and keep NPO. PEG today. There will be risk of her pulling that out as well. Bolus feeds and abd. binder to reduce risk. Extremely difficult social situation. Continue to manage BP, swallow and establishing feeds, PT/OT/SHOTBLASTER. Would ultimately likely benefit from rehab, but placement will be challenging. Can move to stroke floor.
[2019-05-30] MEDS ORDERED: PROPOFOL 200 MG/20 ML VIAL ONE (09:43)
[2019-05-30] MEDS: hydrALAZINE 20 MG/ML VIAL SLOW IVP SCH ×3 (10:56→22:21)
[2019-05-30] MEDS ORDERED: Labetalol HCl 100 MG/20 ML VIAL ONE (12:20)
--- NOTE | 2019-05-30 18:07 | OP ---
DATE OF PROCEDURE: 05/30/2019 PREOPERATIVE DIAGNOSES: 1. Subarachnoid bleed. 2. Dysphagia. 3. Stroke. POSTOPERATIVE DIAGNOSES: 1. Subarachnoid bleed. 2. Dysphagia. 3. Stroke. PROCEDURE PERFORMED: Percutaneous endoscopic gastrostomy tube. ANESTHESIA: Intravenous sedation, local, 1% Xylocaine with epinephrine. DESCRIPTION OF PROCEDURE: The patient was taken to the Endo suite, where under intravenous sedation, endoscope was placed per os under direct visualization. Using air insufflation, passed throughout the esophagus and into the stomach, insufflating the stomach, preparing the abdomen with ChloraPrep and noting a good indentation in left subxiphoid/subcostal, and local anesthetic was infiltrated into skin and subcutaneous tissue after ChloraPrep and stab incision made. Trocar catheter introduced percutaneously within the gastric lumen, advancing the wire, grasping with a snare, removing the endoscope, snare, and wire. Wire connected to the feeding device, and feeding device pulled back into the stomach, securing it to the abdominal wall with fixation device feeding device. The patient tolerated the procedure well. Job ID: [id number]
[2019-05-30] MEDS: Acetaminophen 650 MG Suppository PR PRN (20:54)
[2019-05-31] MEDS: Sodium Chloride 0.9% 1,000 ML IV SCH ×2 (02:19→14:35)
[2019-05-31] MEDS: hydrALAZINE 20 MG/ML VIAL SLOW IVP SCH ×2 (04:19→09:27)
[2019-05-31 05:01] LABS: ALT (SGPT) 8 U/L (8-55); AST (SGOT) 14 U/L (5-34); Albumin 3.3 g/dL (3.4-4.8); Alkaline Phosphatase 80 U/L (40-110); Anion Gap 9 mmol/L (10-20); BUN (Urea Nitrogen) 27 mg/dL (9.8-20.1); Bilirubin, Total 0.5 mg/dL (0.2-1.2); Calc. Creatinine Clearance 116 mL/min (70-130); Calcium 8.9 mg/dL (7.8-10.44); Carbon Dioxide 24 mmol/L (23-31); Chloride 107 mmol/L (98-107); Estimated GFR-MDRD 79; Globulin 2.8 g/dL (2.4-3.5); Glucose 154 mg/dL (80-115); Potassium 3.4 mmol/L (3.5-5.1); Protein, Total 6.1 g/dL (6.0-8.3); Sodium 137 mmol/L (136-145)
[2019-05-31] MEDS: Morphine 2 MG/ML SYRINGE SLOW IVP PRN (05:22)
[2019-05-31] MEDS: Metoprolol Tartrate 25 MG TAB PER TUBE SCH ×2 (09:26→21:00)
[2019-05-31] MEDS: Famotidine/PF 20 mg/2ml Vial SLOW IVP SCH ×2 (09:27→21:00)
[2019-05-31] MEDS: Amlodipine 10 MG TAB PO SCH (09:27)
--- NOTE | 2019-05-31 14:31 | PDOC.HOSPP ---
- Subjective Subjective: Still non-verbal, but nurse indicates she did talk to her. Apparently, her daughter from [facility] came in last night. - Objective Vital Signs & Weight: Vital Signs (12 hours) Temp Pulse Ox 05/31/19 11:10 99.2 F 05/31/19 07:55 100 05/31/19 07:18 99.2 F 05/31/19 03:45 98.4 F Weight Admit Weight 216 lb 4.375 oz Weight 219 lb 4.8 oz Most Recent Monitor Data Heart Rate from ECG 109 NIBP 121/70 NIBP BP-Mean 87 Respiration from ECG 19 SpO2 98 I&O: 05/30/19 05/31/19 06/01/19 06:59 06:59 06:59 Intake Total 750 1690 237 Output Total 1000 600 Balance -250 1090 237 Result Diagrams: 05/23/19 03:30 05/31/19 03:48 Additional Labs: Accuchecks 05/31/19 05/31/19 05/31/19 12:15 06:01 00:03 POC Glucose 184 H 151 H 116 H 05/30/19 18:22 POC Glucose 99 Hospitalist ROS - Medication Medications: Active Medications Generic Name Dose Route Start Last Admin Trade Name Freq PRN Reason Stop Dose Admin Acetaminophen 650 mg 05/22/19 23:17 05/30/19 20:54 Tylenol [place] 650 mg Q4H PRN Administration Headache/Fever or Pain Amlodipine Besylate 10 mg 05/24/19 09:00 05/31/19 09:27 Norvasc PO 10 mg DAILY CRUZ Administration Clonidine 0.1 mg 05/23/19 15:27 05/26/19 22:44 Catapres PO 0.1 mg Q4H PRN Administration SBP GREATER THAN 160 Famotidine 20 mg 05/21/19 21:00 05/31/19 09:27 Pepcid SLOW IVP 20 mg Q12HR CRUZ Administration Hydralazine HCl 20 mg 05/30/19 10:00 05/31/19 09:27 Apresoline SLOW IVP 20 mg Q6H CRUZ Administration Sodium Chloride 1,000 mls @ 60 mls/hr 05/21/19 22:15 05/31/19 02:19 Normal Saline 0.9% IV Not Given .[id number] Metoprolol Tartrate 5 mg 05/23/19 02:19 05/29/19 20:22 Lopressor IVP 5 mg Q3H PRN Administration HR > 110 Metoprolol Tartrate 12.5 mg 05/27/19 21:00 05/31/19 09:26 Lopressor PER TUBE 12.5 mg BID CRUZ Administration Morphine Sulfate 2 mg 05/27/19 02:13 05/31/19 05:22 Morphine SLOW IVP 2 mg Q4H PRN Administration Moderate to Severe Pain (6-10) Sodium Chloride 10 ml 05/21/19 21:00 05/31/19 09:28 Flush - Normal Saline IVF Not Given Q12HR CRUZ Sodium Chloride 10 ml 05/21/19 14:16 05/27/19 02:32 Flush - Normal Saline IVF 10 ml PRN PRN Administration Saline Flush - Exam General Appearance: NAD, awake alert General - other findings: Much more alert and interactive today. ENT - other findings: left facial droop Heart: RRR, no murmur, no gallops, no rubs, normal peripheral pulses Respiratory: CTAB, no wheezes, no rales, no ronchi, normal chest expansion, no tachypnea, normal percussion Gastrointestinal: soft, non-tender, non-distended, normal bowel sounds, no palpable masses, no hepatomegaly, no splenomegaly, no bruit Extremities: no cyanosis, no clubbing, no edema Skin: normal turgor Neurological - other findings: Right hemiplegia Hosp A/P (1) Cerebral parenchymal hemorrhage Code(s): I61.9 - NONTRAUMATIC INTRACEREBRAL HEMORRHAGE, UNSPECIFIED Status: Acute (2) Dysphagia Code(s): R13.10 - DYSPHAGIA, UNSPECIFIED Status: Resolved (3) Hemiplegia affecting right dominant side Code(s): G81.91 - HEMIPLEGIA, UNSPECIFIED AFFECTING RIGHT DOMINANT SIDE Status : Acute (4) Leukocytosis Code(s): D72.829 - ELEVATED WHITE BLOOD CELL COUNT, UNSPECIFIED Status: Resolved (5) Mixed aphasia Code(s): R47.01 - APHASIA Status: Acute (6) HTN (hypertension) Code(s): I10 - ESSENTIAL (PRIMARY) HYPERTENSION Status: Acute - Plan This patient [place] the [place] visiting and caring for her daughter who had breast cancer. While here, she had a hemorrhagic CVA. She has been in the ICU/ IMCU since. Failed swallow and now has PEG. She was more encephalopathic, but appears to be better. Her daughter two days ago. Her other daughter from [facility] (who reportedly also has breast cancer) arrived last night. My understanding is that the plan is to inform her of her daughter's passing this evening. BP has been substantially better. Given Amlodipine and low dose atenolol via PEG. Scheduled IV hydralazine seemed to have work very well. Will transition to PEG. There will be risk of her pulling that out as well. Bolus feeds and abd. binder to reduce risk. Seems to be tolerating feeds well. Encephalopathy improved. Extremely difficult social situation. Working to get some emergency resources for her. Continue to manage BP, swallow and establishing feeds, PT/OT/LANDMAN. Would ultimately likely benefit from rehab, but placement will be challenging. Can move to stroke floor.
[2019-05-31] MEDS: hydrALAZINE 25 MG TAB PER TUBE SCH (21:00)
[2019-06-01 04:39] LABS: ALT (SGPT) 13 U/L (8-55); AST (SGOT) 22 U/L (5-34); Alkaline Phosphatase 73 U/L (40-110); Anion Gap 9 mmol/L (10-20); BUN (Urea Nitrogen) 24 mg/dL (9.8-20.1); Bilirubin, Total 0.4 mg/dL (0.2-1.2); Calc. Creatinine Clearance 136 mL/min (70-130); Calcium 8.6 mg/dL (7.8-10.44); Carbon Dioxide 23 mmol/L (23-31); Chloride 109 mmol/L (98-107); Estimated GFR-MDRD Greater than 90; Globulin 2.8 g/dL (2.4-3.5); Glucose 118 mg/dL (80-115); Potassium 3.9 mmol/L (3.5-5.1); Protein, Total 5.8 g/dL (6.0-8.3); Sodium 137 mmol/L (136-145)
[2019-06-01] MEDS: Amlodipine 10 MG TAB PO SCH (08:46)
[2019-06-01] MEDS: hydrALAZINE 25 MG TAB PER TUBE SCH ×2 (08:46→20:27)
[2019-06-01] MEDS: Metoprolol Tartrate 25 MG TAB PER TUBE SCH ×2 (08:46→20:27)
[2019-06-01] MEDS: Famotidine/PF 20 mg/2ml Vial SLOW IVP SCH ×2 (08:46→20:28)
[2019-06-01] MEDS: Sodium Chloride 0.9% 1,000 ML IV SCH ×2 (14:16→20:28)
[2019-06-01] MEDS: Morphine 2 MG/ML SYRINGE SLOW IVP PRN (15:05)
--- NOTE | 2019-06-01 18:01 | PDOC.HOSPP ---
- Subjective Encounter Date: 06/01/19 Subjective: NON VERBAL - Objective Vital Signs & Weight: Vital Signs (12 hours) Temp Pulse Pulse Pulse BP BP BP 06/01/19 15:43 99.3 F 06/01/19 14:18 108 H 100 139/108 H 165/105 H 06/01/19 13:54 99.4 F 06/01/19 08:46 111 H 121/70 06/01/19 07:37 06/01/19 07:29 99.7 F H Pulse Ox Pulse Ox Pulse Ox 06/01/19 15:43 06/01/19 14:18 99 100 06/01/19 13:54 06/01/19 08:46 06/01/19 07:37 99 06/01/19 07:29 Weight Admit Weight 216 lb 4.375 oz Weight 3.528 oz Most Recent Monitor Data Heart Rate from ECG 103 NIBP 138/83 NIBP BP-Mean 101 Respiration from ECG 19 SpO2 100 I&O: 05/31/19 06/01/19 06/02/19 06:59 06:59 06:59 Intake Total 1690 3778 711 Output Total 600 825 Balance 1090 2953 711 Result Diagrams: 05/23/19 03:30 06/01/19 03:44 Additional Labs: Accuchecks 06/01/19 06/01/19 05/31/19 16:46 05:34 23:25 POC Glucose 152 H 147 H 129 H 05/31/19 18:02 POC Glucose 163 H Hospitalist ROS - Medication Medications: Active Medications Generic Name Dose Route Start Last Admin Trade Name Freq PRN Reason Stop Dose Admin Acetaminophen 650 mg 05/22/19 23:17 05/30/19 20:54 Tylenol [place] 650 mg Q4H PRN Administration Headache/Fever or Pain Amlodipine Besylate 10 mg 05/24/19 09:00 06/01/19 08:46 Norvasc PO 10 mg DAILY CRUZ Administration Clonidine 0.1 mg 05/23/19 15:27 05/26/19 22:44 Catapres PO 0.1 mg Q4H PRN Administration SBP GREATER THAN 160 Famotidine 20 mg 05/21/19 21:00 06/01/19 08:46 Pepcid SLOW IVP 20 mg Q12HR CRUZ Administration Hydralazine HCl 25 mg 05/31/19 21:00 11/23/19 08:46 Apresoline PER TUBE 25 mg BID CRUZ Administration Sodium Chloride 1,000 mls @ 60 mls/hr 05/21/19 22:15 06/01/19 14:16 Normal Saline 0.9% IV Not Given .[id number] Metoprolol Tartrate 5 mg 05/23/19 02:19 05/29/19 20:22 Lopressor IVP 5 mg Q3H PRN Administration HR > 110 Metoprolol Tartrate 12.5 mg 05/27/19 21:00 06/01/19 08:46 Lopressor PER TUBE 12.5 mg BID CRUZ Administration Morphine Sulfate 2 mg 05/27/19 02:13 06/01/19 15:05 Morphine SLOW IVP 2 mg Q4H PRN Administration Moderate to Severe Pain (6-10) Sodium Chloride 10 ml 05/21/19 21:00 06/01/19 08:47 Flush - Normal Saline IVF Not Given Q12HR CRUZ Sodium Chloride 10 ml 05/21/19 14:16 05/27/19 02:32 Flush - Normal Saline IVF 10 ml PRN PRN Administration Saline Flush - Exam ENT: normocephalic atraumatic Neck: supple, no JVD Heart: no murmur, no gallops Respiratory: CTAB, no wheezes, no rales Gastrointestinal: soft, non-tender, non-distended Extremities: no cyanosis, no clubbing Skin: no rashes Neurological: facial droop, hemiplegia, speech deficit Hosp A/P (1) Cerebral parenchymal hemorrhage Code(s): I61.9 - NONTRAUMATIC INTRACEREBRAL HEMORRHAGE, UNSPECIFIED Status: Acute (2) HTN (hypertension) Code(s): I10 - ESSENTIAL (PRIMARY) HYPERTENSION Status: Acute (3) Hemiplegia affecting right dominant side Code(s): G81.91 - HEMIPLEGIA, UNSPECIFIED AFFECTING RIGHT DOMINANT SIDE Status : Acute (4) Mixed aphasia Code(s): R47.01 - APHASIA Status: Acute (5) Palliative care encounter Code(s): Z51.5 - ENCOUNTER FOR PALLIATIVE CARE Status: Acute (6) Dysphagia Code(s): R13.10 - DYSPHAGIA, UNSPECIFIED Status: Resolved (7) Leukocytosis Code(s): D72.829 - ELEVATED WHITE BLOOD CELL COUNT, UNSPECIFIED Status: Resolved - Plan old records reviewed/req, speech therapy This patient [place] the [place] visiting and caring for her daughter who had breast cancer. While here, she had a hemorrhagic CVA. She has been in the ICU/ IMCU since. Failed swallow and now has PEG. She was more encephalopathic, but appears to be better. Her daughter two days ago. Her other daughter from [facility] (who reportedly also has breast cancer) arrived last night. My understanding is that the plan is to inform her of her daughter's passing this evening. BP has been substantially better. Given Amlodipine and low dose atenolol via PEG. Scheduled IV hydralazine seemed to have work very well. Will transition to PEG. There will be risk of her pulling that out as well. Bolus feeds and abd. binder to reduce risk. Seems to be tolerating feeds well. Encephalopathy improved. Extremely difficult social situation. Working to get some emergency resources for her. Continue to manage BP, swallow and establishing feeds, PT/OT/SOUND TECHNICIAN. Would ultimately likely benefit from rehab, but placement will be challenging. CORRECTION PLAN,SNF PLACEMENT.
[2019-06-02 06:41] LABS: ALT (SGPT) 10 U/L (8-55); AST (SGOT) 16 U/L (5-34); Alkaline Phosphatase 71 U/L (40-110); Anion Gap 8 mmol/L (10-20); BUN (Urea Nitrogen) 20 mg/dL (9.8-20.1); Bilirubin, Total 0.4 mg/dL (0.2-1.2); Calc. Creatinine Clearance 137 mL/min (70-130); Calcium 8.6 mg/dL (7.8-10.44); Carbon Dioxide 24 mmol/L (23-31); Chloride 107 mmol/L (98-107); Estimated GFR-MDRD Greater than 90; Globulin 2.5 g/dL (2.4-3.5); Glucose 155 mg/dL (80-115); Protein, Total 5.5 g/dL (6.0-8.3); Sodium 135 mmol/L (136-145)
[2019-06-02] MEDS: hydrALAZINE 25 MG TAB PER TUBE SCH ×2 (09:04→19:07)
[2019-06-02] MEDS: Metoprolol Tartrate 25 MG TAB PER TUBE SCH ×2 (09:04→19:08)
[2019-06-02] MEDS: Famotidine/PF 20 mg/2ml Vial SLOW IVP SCH ×2 (09:04→19:07)
[2019-06-02] MEDS: Amlodipine 10 MG TAB PO SCH (09:04)
[2019-06-02] MEDS: Morphine 2 MG/ML SYRINGE SLOW IVP PRN ×2 (09:23→19:06)
--- NOTE | 2019-06-02 09:57 | PDOC.HOSPP ---
- Subjective Encounter Date: 06/02/19 Subjective: Right hemiplegia with aphasia - Objective Vital Signs & Weight: Vital Signs (12 hours) Temp Pulse Ox 06/02/19 07:46 100 06/02/19 07:17 98.8 F 06/02/19 03:40 99.0 F 06/02/19 00:02 100.5 F H Weight Admit Weight 216 lb 4.375 oz Weight 224 lb 9 oz Most Recent Monitor Data Heart Rate from ECG 91 NIBP 150/77 NIBP BP-Mean 101 Respiration from ECG 23 SpO2 99 I&O: 06/01/19 06/02/19 06/03/19 06:59 06:59 06:59 Intake Total 3778 2954 Output Total 825 1075 Balance 2953 2649 Result Diagrams: 05/23/19 03:30 06/02/19 06:09 Additional Labs: Accuchecks 06/02/19 06/02/19 06/01/19 06:04 00:08 16:46 POC Glucose 169 H 113 H 152 H Hospitalist ROS - Review of Systems Other: afebrile and resting. - Medication Medications: Active Medications Generic Name Dose Route Start Last Admin Trade Name Freq PRN Reason Stop Dose Admin Acetaminophen 650 mg 05/22/19 23:17 05/30/19 20:54 Tylenol [place] 650 mg Q4H PRN Administration Headache/Fever or Pain Amlodipine Besylate 10 mg 05/24/19 09:00 06/02/19 09:04 Norvasc PO 10 mg DAILY CRUZ Administration Clonidine 0.1 mg 05/23/19 15:27 05/26/19 22:44 Catapres PO 0.1 mg Q4H PRN Administration SBP GREATER THAN 160 Famotidine 20 mg 05/21/19 21:00 06/02/19 09:04 Pepcid SLOW IVP 20 mg Q12HR CRUZ Administration Hydralazine HCl 25 mg 05/31/19 21:00 06/02/19 09:04 Apresoline PER TUBE 25 mg BID CRUZ Administration Sodium Chloride 1,000 mls @ 60 mls/hr 05/21/19 22:15 06/01/19 20:28 Normal Saline 0.9% IV 1,000 mls .[id number] CRUZ Administration Metoprolol Tartrate 5 mg 05/23/19 02:19 05/29/19 20:22 Lopressor IVP 5 mg Q3H PRN Administration HR > 110 Metoprolol Tartrate 12.5 mg 05/27/19 21:00 06/02/19 09:04 Lopressor PER TUBE 12.5 mg BID CRUZ Administration Morphine Sulfate 2 mg 05/27/19 02:13 06/02/19 09:23 Morphine SLOW IVP 2 mg Q4H PRN Administration Moderate to Severe Pain (6-10) Sodium Chloride 10 ml 05/21/19 21:00 06/02/19 09:05 Flush - Normal Saline IVF Not Given Q12HR CRUZ Sodium Chloride 10 ml 05/21/19 14:16 05/27/19 02:32 Flush - Normal Saline IVF 10 ml PRN PRN Administration Saline Flush - Exam General Appearance: awake alert Eye: PERRL ENT: normocephalic atraumatic, no oropharyngeal lesions, moist mucosa Heart: RRR, no murmur, no gallops, no rubs, normal peripheral pulses Respiratory: CTAB, no wheezes, no rales, no ronchi, normal chest expansion, no tachypnea, normal percussion Gastrointestinal: soft, non-tender, non-distended, normal bowel sounds, no palpable masses, no hepatomegaly, no splenomegaly, no bruit Extremities: no cyanosis, no clubbing, no edema Skin: no rashes Neurological: hemiplegia, speech deficit Hosp A/P (1) Cerebral parenchymal hemorrhage Code(s): I61.9 - NONTRAUMATIC INTRACEREBRAL HEMORRHAGE, UNSPECIFIED Status: Acute Qualifiers: Cerebral hemorrhage location: cerebral hemisphere, cortical portion Plan: supportive care.Awaiting placement. (2) HTN (hypertension) Code(s): I10 - ESSENTIAL (PRIMARY) HYPERTENSION Status: Acute Plan: Continue anti hypertensive treatment. (3) Hemiplegia affecting right dominant side Code(s): G81.91 - HEMIPLEGIA, UNSPECIFIED AFFECTING RIGHT DOMINANT SIDE Status : Acute (4) Mixed aphasia Code(s): R47.01 - APHASIA Status: Acute (5) Palliative care encounter Code(s): Z51.5 - ENCOUNTER FOR PALLIATIVE CARE Status: Acute (6) Dysphagia Code(s): R13.10 - DYSPHAGIA, UNSPECIFIED Status: Resolved (7) Leukocytosis Code(s): D72.829 - ELEVATED WHITE BLOOD CELL COUNT, UNSPECIFIED Status: Resolved - Plan old records reviewed/req, PT/OT, bilingual social worker This patient [place] the [place] visiting and caring for her daughter who had breast cancer. While here, she had a hemorrhagic CVA. She has been in the ICU/ IMCU since. Failed swallow and now has PEG. She was more encephalopathic, but appears to be better. Her daughter two days ago. Her other daughter from [facility] (who reportedly also has breast cancer) arrived last night. My understanding is that the plan is to inform her of her daughter's passing this evening. BP has been substantially better. Given Amlodipine and low dose atenolol via PEG. Scheduled IV hydralazine seemed to have work very well. Will transition to PEG. There will be risk of her pulling that out as well. Bolus feeds and abd. binder to reduce risk. Seems to be tolerating feeds well. Encephalopathy improved. Extremely difficult social situation. Working to get some emergency resources for her. Continue to manage BP, swallow and establishing feeds, PT/OT/COMPUTATIONAL SCIENCES PROFESSOR. Would ultimately likely benefit from rehab, but placement will be challenging. Awaiting placement to SNF.
[2019-06-02] MEDS: Sodium Chloride 0.9% 1,000 ML IV SCH (17:12)
[2019-06-02] MEDS: Acetaminophen 650 MG Suppository PR PRN (23:10)
[2019-06-03] MEDS: Morphine 2 MG/ML SYRINGE SLOW IVP PRN (02:40)
[2019-06-03 07:04] LABS: ALT (SGPT) 9 U/L (8-55); AST (SGOT) 16 U/L (5-34); Albumin 3.1 g/dL (3.4-4.8); Alkaline Phosphatase 70 U/L (40-110); Anion Gap 10 mmol/L (10-20); BUN (Urea Nitrogen) 19 mg/dL (9.8-20.1); Bilirubin, Total 0.3 mg/dL (0.2-1.2); Calc. Creatinine Clearance 145 mL/min (70-130); Calcium 8.8 mg/dL (7.8-10.44); Carbon Dioxide 25 mmol/L (23-31); Chloride 104 mmol/L (98-107); Estimated GFR-MDRD Greater than 90; Globulin 2.5 g/dL (2.4-3.5); Glucose 115 mg/dL (80-115); Potassium 4.3 mmol/L (3.5-5.1); Protein, Total 5.6 g/dL (6.0-8.3); Sodium 135 mmol/L (136-145)
[2019-06-03] MEDS: Famotidine/PF 20 mg/2ml Vial SLOW IVP SCH ×2 (08:04→20:21)
[2019-06-03] MEDS: Metoprolol Tartrate 25 MG TAB PER TUBE SCH ×2 (08:04→20:21)
[2019-06-03] MEDS: hydrALAZINE 25 MG TAB PER TUBE SCH ×2 (08:04→20:21)
[2019-06-03] MEDS: Amlodipine 10 MG TAB PO SCH (08:04)
--- NOTE | 2019-06-03 09:40 | PDOC.HOSPP ---
- Subjective Encounter Date: 06/03/19 Subjective: alert but has aphasia - Objective Vital Signs & Weight: Vital Signs (12 hours) Temp Resp Pulse Ox 06/03/19 07:40 95 06/03/19 07:25 99.4 F 06/03/19 02:00 99.3 F 24 H 06/02/19 23:10 100.3 F H Weight Admit Weight 216 lb 4.375 oz Weight 226 lb 3 oz Most Recent Monitor Data Heart Rate from ECG 101 NIBP 183/125 NIBP BP-Mean 144 Respiration from ECG 18 SpO2 96 I&O: 06/02/19 06/03/19 06/04/19 06:59 06:59 06:59 Intake Total 2954 3166 297 Output Total 1075 1975 Balance 1879 1191 297 Result Diagrams: 05/23/19 03:30 06/03/19 05:48 Additional Labs: Accuchecks 06/03/19 06/03/19 06/02/19 05:53 00:01 18:14 POC Glucose 105 104 151 H 06/02/19 12:24 POC Glucose 117 H Hospitalist ROS - Review of Systems Other: resting well with aphasia - Medication Medications: Active Medications Generic Name Dose Route Start Last Admin Trade Name Freq PRN Reason Stop Dose Admin Acetaminophen 650 mg 05/22/19 23:17 06/02/19 23:10 Tylenol [place] 650 mg Q4H PRN Administration Headache/Fever or Pain Amlodipine Besylate 10 mg 05/24/19 09:00 06/03/19 08:04 Norvasc PO 10 mg DAILY CRUZ Administration Clonidine 0.1 mg 05/23/19 15:27 05/26/19 22:44 Catapres PO 0.1 mg Q4H PRN Administration SBP GREATER THAN 160 Famotidine 20 mg 05/21/19 21:00 06/03/19 08:04 Pepcid SLOW IVP 20 mg Q12HR CRUZ Administration Hydralazine HCl 25 mg 05/31/19 21:00 06/03/19 08:04 Apresoline PER TUBE 25 mg BID CRUZ Administration Sodium Chloride 1,000 mls @ 60 mls/hr 05/21/19 22:15 06/02/19 17:12 Normal Saline 0.9% IV 1,000 mls .[id number] CRUZ Administration Metoprolol Tartrate 5 mg 05/23/19 02:19 05/29/19 20:22 Lopressor IVP 5 mg Q3H PRN Administration HR > 110 Metoprolol Tartrate 12.5 mg 05/27/19 21:00 06/03/19 08:04 Lopressor PER TUBE 12.5 mg BID CRUZ Administration Morphine Sulfate 2 mg 05/27/19 02:13 06/03/19 02:40 Morphine SLOW IVP 2 mg Q4H PRN Administration Moderate to Severe Pain (6-10) Sodium Chloride 10 ml 05/21/19 21:00 06/03/19 08:05 Flush - Normal Saline IVF 10 ml Q12HR CRUZ Administration Sodium Chloride 10 ml 05/21/19 14:16 05/27/19 02:32 Flush - Normal Saline IVF 10 ml PRN PRN Administration Saline Flush - Exam Eye: PERRL, anicteric sclera ENT: normocephalic atraumatic, no oropharyngeal lesions, moist mucosa Neck: supple, symmetric, no JVD, no thyromegaly, no lymphadenopathy, no carotid bruit Heart: RRR, no murmur, no gallops, no rubs, normal peripheral pulses Respiratory: CTAB, no wheezes, no rales, no ronchi, normal chest expansion, no tachypnea, normal percussion Gastrointestinal: soft, non-tender, non-distended, normal bowel sounds, no palpable masses, no hepatomegaly, no splenomegaly, no bruit Extremities: no cyanosis, no clubbing, no edema Skin: no rashes Neurological: facial droop, hemiplegia, speech deficit Hosp A/P (1) Cerebral parenchymal hemorrhage Code(s): I61.9 - NONTRAUMATIC INTRACEREBRAL HEMORRHAGE, UNSPECIFIED Status: Acute Qualifiers: Cerebral hemorrhage location: cerebral hemisphere, cortical portion (2) HTN (hypertension) Code(s): I10 - ESSENTIAL (PRIMARY) HYPERTENSION Status: Acute (3) Hemiplegia affecting right dominant side Code(s): G81.91 - HEMIPLEGIA, UNSPECIFIED AFFECTING RIGHT DOMINANT SIDE Status : Acute (4) Mixed aphasia Code(s): R47.01 - APHASIA Status: Acute (5) Palliative care encounter Code(s): Z51.5 - ENCOUNTER FOR PALLIATIVE CARE Status: Acute (6) Dysphagia Code(s): R13.10 - DYSPHAGIA, UNSPECIFIED Status: Resolved (7) Leukocytosis Code(s): D72.829 - ELEVATED WHITE BLOOD CELL COUNT, UNSPECIFIED Status: Resolved - Plan This patient [place] the [place] and caring for her daughter who had breast cancer. While here, she had a hemorrhagic CVA. She has been in the ICU/ IMCU since. Failed swallow and now has PEG. She was more encephalopathic, but appears to be better. Her daughter two days ago. Her other daughter from [facility] (who reportedly also has breast cancer) arrived last night. My understanding is that the plan is to inform her of her daughter's passing this evening. BP has been substantially better. Given Amlodipine and low dose atenolol via PEG. Scheduled IV hydralazine seemed to have work very well. Will transition to PEG. There will be risk of her pulling that out as well. Bolus feeds and abd. binder to reduce risk. Seems to be tolerating feeds well. Encephalopathy improved. Extremely difficult social situation. Working to get some emergency resources for her. Continue to manage BP, swallow and establishing feeds, PT/OT/GARNETT FIXER. Would ultimately likely benefit from rehab, but placement will be challenging. Awaiting placement to SNF.
[2019-06-03] MEDS: Metoprolol Tartrate 5 MG/5 ML VIAL IVP PRN (14:29)
[2019-06-03] MEDS: Sodium Chloride 0.9% 1,000 ML IV SCH (14:29)
[2019-06-04] MEDS: Sodium Chloride 0.9% 1,000 ML IV SCH ×2 (04:22→21:09)
[2019-06-04 04:28] LABS: ALT (SGPT) 8 U/L (8-55); AST (SGOT) 15 U/L (5-34); Alkaline Phosphatase 71 U/L (40-110); Anion Gap 9 mmol/L (10-20); BUN (Urea Nitrogen) 17 mg/dL (9.8-20.1); Bilirubin, Total 0.3 mg/dL (0.2-1.2); Calc. Creatinine Clearance 141 mL/min (70-130); Calcium 8.9 mg/dL (7.8-10.44); Carbon Dioxide 27 mmol/L (23-31); Chloride 105 mmol/L (98-107); Estimated GFR-MDRD Greater than 90; Globulin 2.6 g/dL (2.4-3.5); Glucose 126 mg/dL (80-115); Potassium 4.2 mmol/L (3.5-5.1); Protein, Total 5.6 g/dL (6.0-8.3); Sodium 137 mmol/L (136-145)
--- NOTE | 2019-06-04 09:57 | PDOC.HOSPP ---
- Subjective Encounter Date: 06/04/19 Subjective: Alert and awake with aphasia - Objective Vital Signs & Weight: Vital Signs (12 hours) Temp Pulse Ox 06/04/19 08:00 95 06/04/19 07:15 98.8 F 06/03/19 23:28 99.2 F Weight Admit Weight 216 lb 4.375 oz Weight 224 lb 2 oz Most Recent Monitor Data Heart Rate from ECG 94 NIBP 130/88 NIBP BP-Mean 102 Respiration from ECG 16 SpO2 94 I&O: 06/03/19 06/04/19 06/05/19 06:59 06:59 06:59 Intake Total 3166 3250 Output Total 5628 4125 Balance 1191 -875 Result Diagrams: 05/23/19 03:30 06/04/19 03:44 Additional Labs: Accuchecks 06/04/19 06/04/19 06/03/19 05:36 00:39 18:11 POC Glucose 147 H 95 136 H 06/03/19 12:02 POC Glucose 103 Hospitalist ROS - Review of Systems Constitutional: reports: weakness Other: aphasia - Medication Medications: Active Medications Generic Name Dose Route Start Last Admin Trade Name Freq PRN Reason Stop Dose Admin Acetaminophen 650 mg 05/22/19 23:17 06/02/19 23:10 Tylenol [place] 650 mg Q4H PRN Administration Headache/Fever or Pain Amlodipine Besylate 10 mg 05/24/19 09:00 06/03/19 08:04 Norvasc PO 10 mg DAILY CRUZ Administration Clonidine 0.1 mg 05/23/19 15:27 05/26/19 22:44 Catapres PO 0.1 mg Q4H PRN Administration SBP GREATER THAN 160 Famotidine 20 mg 05/21/19 21:00 06/03/19 20:21 Pepcid SLOW IVP 20 mg Q12HR CRUZ Administration Hydralazine HCl 25 mg 05/31/19 21:00 06/03/19 20:21 Apresoline PER TUBE 25 mg BID CRUZ Administration Sodium Chloride 1,000 mls @ 60 mls/hr 05/21/19 22:15 06/04/19 04:22 Normal Saline 0.9% IV 1,000 mls .[id number] CRUZ Administration Metoprolol Tartrate 5 mg 05/23/19 02:19 06/03/19 14:29 Lopressor IVP 5 mg Q3H PRN Administration HR > 110 Metoprolol Tartrate 12.5 mg 05/27/19 21:00 06/03/19 20:21 Lopressor PER TUBE 12.5 mg BID CRUZ Administration Morphine Sulfate 2 mg 05/27/19 02:13 06/03/19 02:40 Morphine SLOW IVP 2 mg Q4H PRN Administration Moderate to Severe Pain (6-10) Sodium Chloride 10 ml 05/21/19 21:00 06/03/19 20:21 Flush - Normal Saline IVF 10 ml Q12HR CRUZ Administration Sodium Chloride 10 ml 05/21/19 14:16 05/27/19 02:32 Flush - Normal Saline IVF 10 ml PRN PRN Administration Saline Flush - Exam Eye: PERRL, anicteric sclera ENT: normocephalic atraumatic, no oropharyngeal lesions, moist mucosa Neck: supple, symmetric, no JVD, no thyromegaly, no lymphadenopathy, no carotid bruit Heart: RRR, no murmur, no gallops, no rubs, normal peripheral pulses Respiratory: CTAB, no wheezes, no rales, no ronchi, normal chest expansion, no tachypnea, normal percussion Gastrointestinal: soft, non-tender, non-distended, normal bowel sounds, no palpable masses, no hepatomegaly, no splenomegaly, no bruit Extremities: no cyanosis, no clubbing, no edema Skin: normal turgor, no lesions, no rashes Neurological: hemiplegia, speech deficit Hosp A/P (1) Cerebral parenchymal hemorrhage Code(s): I61.9 - NONTRAUMATIC INTRACEREBRAL HEMORRHAGE, UNSPECIFIED Status: Acute Qualifiers: Cerebral hemorrhage location: cerebral hemisphere, cortical portion (2) HTN (hypertension) Code(s): I10 - ESSENTIAL (PRIMARY) HYPERTENSION Status: Acute (3) Hemiplegia affecting right dominant side Code(s): G81.91 - HEMIPLEGIA, UNSPECIFIED AFFECTING RIGHT DOMINANT SIDE Status : Acute (4) Mixed aphasia Code(s): R47.01 - APHASIA Status: Acute (5) Palliative care encounter Code(s): Z51.5 - ENCOUNTER FOR PALLIATIVE CARE Status: Acute (6) Dysphagia Code(s): R13.10 - DYSPHAGIA, UNSPECIFIED Status: Resolved (7) Leukocytosis Code(s): D72.829 - ELEVATED WHITE BLOOD CELL COUNT, UNSPECIFIED Status: Resolved - Plan old records reviewed/req, PT/OT, psychosocial rehabilitation counselor, respiratory therapy This patient [place] caring for her daughter who had breast cancer. While here, she had a hemorrhagic CVA. She has been in the ICU/ IMCU since. Failed swallow and now has PEG. She was more encephalopathic, but appears to be better. Her daughter two days ago. Her other daughter from [facility] (who reportedly also has breast cancer) arrived last night. My understanding is that the plan is to inform her of her daughter's passing this evening. BP has been substantially better. Given Amlodipine and low dose atenolol via PEG. Scheduled IV hydralazine seemed to have work very well. Will transition to PEG. There will be risk of her pulling that out as well. Bolus feeds and abd. binder to reduce risk. Seems to be tolerating feeds well. Encephalopathy improved. Extremely difficult social situation. Working to get some emergency resources for her. Continue to manage BP, swallow and establishing feeds, PT/OT/HOT TOP LINER HELPER. Would ultimately likely benefit from rehab, but placement will be challenging. Awaiting placement to SNF.
[2019-06-04] MEDS: Amlodipine 10 MG TAB PO SCH (11:05)
[2019-06-04] MEDS: hydrALAZINE 25 MG TAB PER TUBE SCH ×2 (11:05→20:59)
[2019-06-04] MEDS: Famotidine/PF 20 mg/2ml Vial SLOW IVP SCH ×2 (11:05→20:59)
[2019-06-04] MEDS: Metoprolol Tartrate 25 MG TAB PER TUBE SCH ×2 (11:06→21:00)
[2019-06-05 04:41] LABS: ALT (SGPT) 7 U/L (8-55); AST (SGOT) 15 U/L (5-34); Albumin 3.1 g/dL (3.4-4.8); Alkaline Phosphatase 72 U/L (40-110); Anion Gap 8 mmol/L (10-20); BUN (Urea Nitrogen) 15 mg/dL (9.8-20.1); Bilirubin, Total 0.4 mg/dL (0.2-1.2); Calc. Creatinine Clearance 135 mL/min (70-130); Carbon Dioxide 27 mmol/L (23-31); Chloride 103 mmol/L (98-107); Estimated GFR-MDRD Greater than 90; Globulin 2.6 g/dL (2.4-3.5); Glucose 135 mg/dL (80-115); Protein, Total 5.7 g/dL (6.0-8.3); Sodium 134 mmol/L (136-145)
[2019-06-05] MEDS: Amlodipine 10 MG TAB PO SCH (10:11)
[2019-06-05] MEDS: Metoprolol Tartrate 25 MG TAB PER TUBE SCH ×2 (10:11→21:06)
[2019-06-05] MEDS: Famotidine/PF 20 mg/2ml Vial SLOW IVP SCH (10:11)
[2019-06-05] MEDS: Sodium Chloride 0.9% 1,000 ML IV SCH (10:12)
[2019-06-05] MEDS: hydrALAZINE 25 MG TAB PER TUBE SCH ×2 (10:12→21:06)
[2019-06-05] MEDS: Morphine 2 MG/ML SYRINGE SLOW IVP PRN (13:55)
--- NOTE | 2019-06-05 15:57 | PDOC.HOSPP ---
- Subjective Encounter Date: 06/05/19 Encounter Time: 15:00 Subjective: Per staff, patient has occasional generalized body pains with PT sessions. No N/ V/D/C. - Objective Vital Signs & Weight: Vital Signs (12 hours) Temp Pulse Ox 06/05/19 15:28 99.3 F 06/05/19 11:18 98.6 F 06/05/19 08:00 100 06/05/19 07:48 99.2 F 06/05/19 04:09 99.2 F Weight Admit Weight 216 lb 4.375 oz Weight 221 lb 9 oz Most Recent Monitor Data Heart Rate from ECG 103 NIBP 141/86 NIBP BP-Mean 104 Respiration from ECG 21 SpO2 93 I&O: 06/04/19 06/05/19 06/06/19 06:59 06:59 06:59 Intake Total 3250 3055 594 Output Total 4125 4925 Balance -523 -7895 594 Result Diagrams: 05/23/19 03:30 06/05/19 03:49 Additional Labs: Accuchecks 06/05/19 06/05/19 06/04/19 12:26 05:39 18:08 POC Glucose 167 H 136 H 89 Hospitalist ROS - Medication Medications: Active Medications Generic Name Dose Route Start Last Admin Trade Name Freq PRN Reason Stop Dose Admin Acetaminophen 650 mg 05/22/19 23:17 06/02/19 23:10 Tylenol [place] 650 mg Q4H PRN Administration Headache/Fever or Pain Amlodipine Besylate 10 mg 05/24/19 09:00 06/05/19 10:11 Norvasc PO 10 mg DAILY CRUZ Administration Hydralazine HCl 25 mg 05/31/19 21:00 06/05/19 10:12 Apresoline PER TUBE 25 mg BID CRUZ Administration Sodium Chloride 10 ml 05/21/19 21:00 06/05/19 10:12 Flush - Normal Saline IVF Not Given Q12HR CRUZ Sodium Chloride 10 ml 05/21/19 14:16 05/27/19 02:32 Flush - Normal Saline IVF 10 ml PRN PRN Administration Saline Flush - Exam Neck: supple, symmetric Heart: RRR, no murmur, no gallops Respiratory: CTAB, no wheezes, normal chest expansion Gastrointestinal: soft, non-tender, non-distended, normal bowel sounds Hosp A/P (1) Cerebral parenchymal hemorrhage Code(s): I61.9 - NONTRAUMATIC INTRACEREBRAL HEMORRHAGE, UNSPECIFIED Status: Acute Qualifiers: Cerebral hemorrhage location: cerebral hemisphere, cortical portion Laterality: left Plan: Awaiting stroke unit bed PT/OT & ST Continue supportive care Complicated by dysphagia with a PEG tube now (2) HTN (hypertension) Code(s): I10 - ESSENTIAL (PRIMARY) HYPERTENSION Status: Chronic Qualifiers: Hypertension type: essential hypertension Qualified Code(s): I10 - Essential (primary) hypertension Plan: Monitor BP and adjust meds - Plan PT/OT, out of bed/ambulate, DVT proph w/SCDs
[2019-06-06 05:37] LABS: ALT (SGPT) 8 U/L (8-55); AST (SGOT) 14 U/L (5-34); Albumin 3.2 g/dL (3.4-4.8); Alkaline Phosphatase 72 U/L (40-110); Anion Gap 9 mmol/L (10-20); BUN (Urea Nitrogen) 18 mg/dL (9.8-20.1); Bilirubin, Total 0.3 mg/dL (0.2-1.2); Calc. Creatinine Clearance 112 mL/min (70-130); Calcium 8.8 mg/dL (7.8-10.44); Carbon Dioxide 28 mmol/L (23-31); Chloride 103 mmol/L (98-107); Estimated GFR-MDRD 76; Globulin 2.5 g/dL (2.4-3.5); Glucose 146 mg/dL (80-115); Protein, Total 5.7 g/dL (6.0-8.3); Sodium 136 mmol/L (136-145)
[2019-06-06] MEDS: Acetaminophen 650 MG/20.3 ML UDCUP PO PRN (06:04)
[2019-06-06] MEDS: Amlodipine 10 MG TAB PO SCH (09:47)
[2019-06-06] MEDS: Metoprolol Tartrate 25 MG TAB PER TUBE SCH ×2 (09:49→21:41)
[2019-06-06] MEDS: hydrALAZINE 25 MG TAB PER TUBE SCH ×2 (09:49→21:41)
--- NOTE | 2019-06-06 11:31 | PDOC.HOSPP ---
- Subjective Encounter Date: 06/06/19 Encounter Time: 11:10 Subjective: No acute events overnight. Moved to the stroke unit. - Objective Vital Signs & Weight: Vital Signs (12 hours) Temp Pulse Resp BP BP Pulse Ox 06/06/19 11:26 99.5 F 90 16 137/104 H 100 06/06/19 09:49 91 157/97 H 06/06/19 09:47 91 157/97 H 06/06/19 07:31 98.8 F 91 16 157/97 H 98 06/06/19 07:20 95 06/06/19 03:37 100.2 F H 90 18 142/88 H 94 L Weight Admit Weight 216 lb 4.375 oz Weight 214 lb 3.2 oz Most Recent Monitor Data Heart Rate from ECG 95 NIBP 138/86 NIBP BP-Mean 103 Respiration from ECG 16 SpO2 94 I&O: 06/05/19 06/06/19 06/07/19 06:59 06:59 06:59 Intake Total 3055 2871 297 Output Total 4925 2450 Balance -1870 421 297 Result Diagrams: 05/23/19 03:30 06/06/19 04:54 Additional Labs: Accuchecks 06/06/19 06/06/19 06/05/19 06:34 00:20 18:09 POC Glucose 114 H 105 140 H 06/05/19 12:26 POC Glucose 167 H Hospitalist ROS - Medication Medications: Active Medications Generic Name Dose Route Start Last Admin Trade Name Freq PRN Reason Stop Dose Admin Acetaminophen 650 mg 05/22/19 23:17 06/02/19 23:10 Tylenol [place] 650 mg Q4H PRN Administration Headache/Fever or Pain Acetaminophen 650 mg 06/06/19 05:31 06/06/19 06:04 Tylenol Elixir PO 650 mg Q4H PRN Administration Fever/Mild Pain Amlodipine Besylate 10 mg 05/24/19 09:00 06/06/19 09:47 Norvasc PO 10 mg DAILY CRUZ Administration Hydralazine HCl 25 mg 05/31/19 21:00 06/06/19 09:49 Apresoline PER TUBE 25 mg BID CRUZ Administration Metoprolol Tartrate 25 mg 06/05/19 21:00 06/06/19 09:49 Lopressor PER TUBE 25 mg BID CRUZ Administration Sodium Chloride 10 ml 05/21/19 21:00 06/06/19 09:46 Flush - Normal Saline IVF Not Given Q12HR CRUZ Sodium Chloride 10 ml 05/21/19 14:16 05/27/19 02:32 Flush - Normal Saline IVF 10 ml PRN PRN Administration Saline Flush - Exam Heart: RRR, no murmur Respiratory: CTAB, no wheezes Hosp A/P (1) Cerebral parenchymal hemorrhage Code(s): I61.9 - NONTRAUMATIC INTRACEREBRAL HEMORRHAGE, UNSPECIFIED Status: Acute Qualifiers: Cerebral hemorrhage location: cerebral hemisphere, cortical portion Laterality: left (2) HTN (hypertension) Code(s): I10 - ESSENTIAL (PRIMARY) HYPERTENSION Status: Chronic Qualifiers: Hypertension type: essential hypertension Qualified Code(s): I10 - Essential (primary) hypertension - Plan Hosp A/P (1) Cerebral parenchymal hemorrhage PT/OT & ST Continue supportive care Complicated by dysphagia with a PEG tube now Tube feeds (2) HTN (hypertension) Monitor BP and adjust meds
[2019-06-07 05:44] LABS: ALT (SGPT) 8 U/L (8-55); AST (SGOT) 15 U/L (5-34); Albumin 3.2 g/dL (3.4-4.8); Alkaline Phosphatase 71 U/L (40-110); Anion Gap 10 mmol/L (10-20); BUN (Urea Nitrogen) 16 mg/dL (9.8-20.1); Bilirubin, Total 0.4 mg/dL (0.2-1.2); Calc. Creatinine Clearance 118 mL/min (70-130); Calcium 9.1 mg/dL (7.8-10.44); Carbon Dioxide 27 mmol/L (23-31); Chloride 104 mmol/L (98-107); Estimated GFR-MDRD 83; Globulin 2.7 g/dL (2.4-3.5); Glucose 110 mg/dL (80-115); Potassium 4.4 mmol/L (3.5-5.1); Protein, Total 5.9 g/dL (6.0-8.3); Sodium 137 mmol/L (136-145)
--- NOTE | 2019-06-07 09:16 | PDOC.HOSPP ---
- Subjective Encounter Date: 06/07/19 Encounter Time: 09:16 Subjective: No acute events overnight. No CP, SOB, N/V/D/C. - Objective Vital Signs & Weight: Vital Signs (12 hours) Temp Pulse Resp BP Pulse Ox 06/07/19 07:34 98.8 F 91 20 142/82 H 94 L 06/07/19 03:50 99.1 F 77 16 127/80 94 L 06/07/19 00:00 98.9 F 83 16 149/90 H 94 L 06/06/19 21:41 105 H Weight Admit Weight 216 lb 4.375 oz Weight 213 lb 12.8 oz Most Recent Monitor Data Heart Rate from ECG 95 NIBP 138/86 NIBP BP-Mean 103 Respiration from ECG 16 SpO2 94 I&O: 06/06/19 06/07/19 06/08/19 06:59 06:59 06:59 Intake Total 2871 1725 Output Total 2450 3875 Balance 421 -2150 Result Diagrams: 05/23/19 03:30 06/07/19 04:30 Additional Labs: Accuchecks 06/07/19 06/07/19 06/06/19 06:26 00:59 16:37 POC Glucose 108 101 85 06/06/19 11:31 POC Glucose 105 Hospitalist ROS - Medication Medications: Active Medications Generic Name Dose Route Start Last Admin Trade Name Freq PRN Reason Stop Dose Admin Acetaminophen 650 mg 05/22/19 23:17 06/02/19 23:[address] 650 mg Q4H PRN Administration Headache/Fever or Pain Acetaminophen 650 mg 06/06/19 05:31 06/06/19 06:04 Tylenol Elixir PO 650 mg Q4H PRN Administration Fever/Mild Pain Amlodipine Besylate 10 mg 05/24/19 09:00 06/06/19 09:47 Norvasc PO 10 mg DAILY CRUZ Administration Hydralazine HCl 25 mg 05/31/19 21:00 06/06/19 21:41 Apresoline PER TUBE 25 mg BID CRUZ Administration Metoprolol Tartrate 25 mg 06/05/19 21:00 06/06/19 21:41 Lopressor PER TUBE 25 mg BID CRUZ Administration Sodium Chloride 10 ml 05/21/19 21:00 06/06/19 21:41 Flush - Normal Saline IVF Not Given Q12HR CRUZ Sodium Chloride 10 ml 05/21/19 14:16 05/27/19 02:32 Flush - Normal Saline IVF 10 ml PRN PRN Administration Saline Flush - Exam Heart: RRR, no murmur, normal peripheral pulses Respiratory: CTAB, no wheezes, normal chest expansion Gastrointestinal: soft, non-tender Hosp A/P (1) Cerebral parenchymal hemorrhage Code(s): I61.9 - NONTRAUMATIC INTRACEREBRAL HEMORRHAGE, UNSPECIFIED Status: Acute Qualifiers: Cerebral hemorrhage location: cerebral hemisphere, cortical portion Laterality: left (2) HTN (hypertension) Code(s): I10 - ESSENTIAL (PRIMARY) HYPERTENSION Status: Chronic Qualifiers: Hypertension type: essential hypertension Qualified Code(s): I10 - Essential (primary) hypertension - Plan Hosp A/P (1) Cerebral parenchymal hemorrhage PT/OT & ST Continue supportive care Complicated by dysphagia with a PEG tube now Tube feeds (2) HTN (hypertension) Monitor BP and adjust meds
[2019-06-07] MEDS: Amlodipine 10 MG TAB PO SCH (09:23)
[2019-06-07] MEDS: Metoprolol Tartrate 25 MG TAB PER TUBE SCH (09:23)
[2019-06-07] MEDS: hydrALAZINE 25 MG TAB PER TUBE SCH ×2 (09:23→21:17)
[2019-06-07] MEDS: Carvedilol 6.25 MG TAB PO SCH (17:49)
[2019-06-07 17:50] LABS: Magnesium 2.2 mg/dL (1.6-2.6); Phosphorus 3.7 mg/dL (2.3-4.7)
[2019-06-07] MEDS: Acetaminophen 650 MG/20.3 ML UDCUP PO PRN (21:17)
[2019-06-08 05:39] LABS: ALT (SGPT) 8 U/L (8-55); AST (SGOT) 15 U/L (5-34); Albumin 3.4 g/dL (3.4-4.8); Alkaline Phosphatase 79 U/L (40-110); Anion Gap 10 mmol/L (10-20); BUN (Urea Nitrogen) 20 mg/dL (9.8-20.1); Bilirubin, Total 0.4 mg/dL (0.2-1.2); Calc. Creatinine Clearance 107 mL/min (70-130); Calcium 9.1 mg/dL (7.8-10.44); Carbon Dioxide 27 mmol/L (23-31); Chloride 103 mmol/L (98-107); Estimated GFR-MDRD 75; Globulin 2.7 g/dL (2.4-3.5); Glucose 181 mg/dL (80-115); Potassium 3.8 mmol/L (3.5-5.1); Protein, Total 6.1 g/dL (6.0-8.3); Sodium 136 mmol/L (136-145)
[2019-06-08] MEDS: Amlodipine 10 MG TAB PO SCH (08:59)
[2019-06-08] MEDS: Carvedilol 6.25 MG TAB PO SCH ×2 (08:59→16:01)
[2019-06-08] MEDS: hydrALAZINE 25 MG TAB PER TUBE SCH ×2 (08:59→21:43)
--- NOTE | 2019-06-08 10:19 | PDOC.HOSPP ---
- Subjective Encounter Date: 06/08/19 Encounter Time: 10:19 Subjective: Daughter at bedside. No acute events overnight. No fever, chills. Leon removed this AM and patient retaining urine on bladder scan. Straight cath with bloody urine. - Objective Vital Signs & Weight: Vital Signs (12 hours) Temp Pulse Resp BP BP Pulse Ox 06/08/19 08:59 86 143/104 H 06/08/19 08:00 99.3 F 86 16 143/104 H 94 L 06/08/19 03:47 98.6 F 94 20 135/90 94 L Weight Admit Weight 216 lb 4.375 oz Weight 213 lb 6.4 oz Most Recent Monitor Data Heart Rate from ECG 95 NIBP 138/86 NIBP BP-Mean 103 Respiration from ECG 16 SpO2 94 I&O: 06/07/19 06/08/19 06/09/19 06:59 06:59 06:59 Intake Total 1725 3390 Output Total 3875 2085 Balance -2150 1305 Result Diagrams: 05/23/19 03:30 06/08/19 04:51 Additional Labs: Accuchecks 06/08/19 06/08/19 06/07/19 05:45 00:16 18:07 POC Glucose 137 H 112 H 116 H 06/07/19 11:34 POC Glucose 127 H Hospitalist ROS - Medication Medications: Active Medications Generic Name Dose Route Start Last Admin Trade Name Freq PRN Reason Stop Dose Admin Acetaminophen 650 mg 05/22/19 23:17 06/02/19 23:10 Tylenol [place] 650 mg Q4H PRN Administration Headache/Fever or Pain Acetaminophen 650 mg 06/06/19 05:31 06/07/19 21:17 Tylenol Elixir PO 650 mg Q4H PRN Administration Fever/Mild Pain Amlodipine Besylate 10 mg 05/24/19 09:00 06/08/19 08:59 Norvasc PO 10 mg DAILY CRUZ Administration Carvedilol 12.5 mg 06/07/19 17:00 06/08/19 08:59 Coreg PO 12.5 mg BID-WM CRUZ Administration Hydralazine HCl 25 mg 05/31/19 21:00 06/08/19 08:59 Apresoline PER TUBE 25 mg BID CRUZ Administration Sodium Chloride 10 ml 05/21/19 21:00 06/08/19 08:59 Flush - Normal Saline IVF 10 ml Q12HR CRUZ Administration Sodium Chloride 10 ml 05/21/19 14:16 05/27/19 02:32 Flush - Normal Saline IVF 10 ml PRN PRN Administration Saline Flush - Exam Neck: supple, no JVD, no thyromegaly Heart: RRR, no murmur, normal peripheral pulses Respiratory: CTAB, no wheezes, normal chest expansion Gastrointestinal: soft, non-tender, non-distended Gastrointestinal - other findings: PEG with abdominal binder in place Hosp A/P (1) Cerebral parenchymal hemorrhage Code(s): I61.9 - NONTRAUMATIC INTRACEREBRAL HEMORRHAGE, UNSPECIFIED Status: Acute Qualifiers: Cerebral hemorrhage location: cerebral hemisphere, cortical portion Laterality: left (2) HTN (hypertension) Code(s): I10 - ESSENTIAL (PRIMARY) HYPERTENSION Status: Chronic Qualifiers: Hypertension type: essential hypertension Qualified Code(s): I10 - Essential (primary) hypertension - Plan plan discussed w/ family, DVT proph w/SCDs Hosp A/P (1) Cerebral parenchymal hemorrhage PT/OT & ST Continue supportive care Complicated by dysphagia with a PEG tube now Tube feeds Case DW daughter at bedside today Case management note reviewed Patient can't be discharged home as family unable to provide her care if she will be bedbound Hence, referral sent to SNF for zachery placement Once bed available, likely DC (2) HTN (hypertension) Monitor BP and adjust meds 3) Hematuria & Urinary retention s/p straight cath with bloody urine Will obtain UA with reflex microscopy & cultures as needed Continue bladder scan Q8 hrs and straight cath PRN
[2019-06-08 13:47] LABS: Bilirubin Negative (Negative); Blood, Urine 2+ (Negative); Clarity Turbid (Clear); Glucose, Urine (Dipstick) Normal (Negative); Leukocyte 500 Leu/uL (Negative); Nitrite Negative (Negative); Protein, Urine (Dipstick) 20 mg/dL (Neg-Trace); RBC/HPF Greater than 50 HPF (0-3); Squamous Epithelial None Seen HPF (0-3); Urobilinogen Normal mg/dL (Less than 2); WBC/HPF Greater than 50 HPF (0-3)
[2019-06-08 13:55] LABS: Bacteria/HPF 1+ HPF (None Seen)
[2019-06-08 13:56] LABS: Calcium Oxalate Crystals Rare HPF (None Seen)
[2019-06-08 13:57] LABS: Urine Culture Reflex Yes Yes
--- NOTE | 2019-06-08 18:29 | CON ---
DATE OF CONSULTATION: 06/08/2019 REASON FOR CONSULTATION: Nonsustained ventricular tachycardia. HISTORY OF PRESENT ILLNESS: Ms. Fallon is a very pleasant 68-year-old [place] or Filipino female, who was admitted for intracranial hemorrhage. She was visiting her daughter, who was in the Oncology unit and just collapsed to the ground. She was taken to the ER, where she was found to have a hemorrhagic CVA. Her blood pressure was very high at that time. Her blood pressure has been treated since and is doing much better. She has been on the radiation monitor and was found to have a run of about 12 beats of nonsustained ventricular tachycardia. This was asymptomatic. Because of this, Cardiology is being consulted. PAST MEDICAL HISTORY: 1. Hypertension. 2. Osteoarthritis. PAST SURGICAL HISTORY: None. FAMILY HISTORY: Noncontributory. 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 PHYSICAL EXAMINATION: VITAL SIGNS: Temperature 99.5, pulse 97, respiratory rate 16, saturating 96% on room air, blood pressure 125/81. GENERAL: Awake, alert, and oriented x3. HEENT: Normocephalic. NECK: Supple. LUNGS: Clear. CARDIOVASCULAR: S1 and S2. No S3 or S4. ABDOMEN: Soft. Positive bowel sounds. EXTREMITIES: No edema. SKIN: Warm and dry. LABORATORY DATA: Laboratory work was reviewed. CBC with a white count of 11, hemoglobin 13, hematocrit 39, platelet count 218. Coags were normal. Chemistry was unremarkable. UA with turbid urine and 2+ blood, 500 leukocyte esterase, greater than 50 rbc's and white cells, 1+ bacteria. Culture pending. Nitrites were negative. EKG was reviewed. Telemetry was reviewed, nonsustained ventricular tachycardia. ASSESSMENT AND PLAN: 1. Acute hemorrhagic cerebrovascular accident. 2. Hypertensive emergency. 3. Non-sustained ventricular tachycardia. PLAN: We will do an amiodarone load at this time. Her echocardiogram was done on the of this month, showed an EF of 55% to 60%. She had a severely dilated left atrium. This could be aberrantly conducted SVT. However, this is unclear and because it would be prohibitive to do any type of heart catheterization, there may be a need for anticoagulation in that setting with her hemorrhagic CVA, we will assume that it is ischemic and start her on an amiodarone load 400 b.i.d. for 10 days and then 200 mg a day after that. Thank you for letting us participate in the care of your patient. We will follow. Job ID: [id number]
[2019-06-08] MEDS: Acetaminophen 650 MG/20.3 ML UDCUP PO PRN (21:43)
[2019-06-08] MEDS: Amiodarone 200 MG TAB PO SCH (21:43)
--- NOTE | 2019-06-08 21:54 | EKG ---
Test Reason : Blood Pressure : / mmHG Vent. Rate : 070 BPM Atrial Rate : 070 BPM P-R Int : 176 ms QRS Dur : 094 ms QT Int : 452 ms P-R-T Axes : 035 -38 018 degrees QTc Int : 488 ms Normal sinus rhythm Left axis deviation Voltage criteria for left ventricular hypertrophy Cannot rule out Septal infarct , age undetermined Abnormal ECG Confirmed by ARI HAGEN DO ([id number]), purchasing expeditor JENS DIA ([id number]) on 06/08/2019 9:54:06 PM Referred By: Confirmed By:ARI HAGEN DO
[2019-06-09] MEDS ORDERED: Ciprofloxacin 500 MG TAB PER TUBE SCH (02:15)
[2019-06-09 05:27] LABS: ALT (SGPT) 8 U/L (8-55); AST (SGOT) 16 U/L (5-34); Albumin 3.4 g/dL (3.4-4.8); Alkaline Phosphatase 79 U/L (40-110); Anion Gap 11 mmol/L (10-20); BUN (Urea Nitrogen) 22 mg/dL (9.8-20.1); Bilirubin, Total 0.5 mg/dL (0.2-1.2); Calc. Creatinine Clearance 104 mL/min (70-130); Calcium 9.4 mg/dL (7.8-10.44); Carbon Dioxide 28 mmol/L (23-31); Chloride 104 mmol/L (98-107); Estimated GFR-MDRD 72; Globulin 2.8 g/dL (2.4-3.5); Glucose 118 mg/dL (80-115); Potassium 4.5 mmol/L (3.5-5.1); Protein, Total 6.2 g/dL (6.0-8.3); Sodium 138 mmol/L (136-145)
[2019-06-09] MEDS: Amlodipine 10 MG TAB PO SCH (09:36)
[2019-06-09] MEDS: Amiodarone 200 MG TAB PO SCH ×2 (09:36→22:08)
[2019-06-09] MEDS: Carvedilol 6.25 MG TAB PO SCH ×2 (09:36→17:09)
[2019-06-09] MEDS: hydrALAZINE 25 MG TAB PER TUBE SCH ×2 (09:37→22:07)
--- NOTE | 2019-06-09 10:32 | PDOC.HOSPP ---
- Subjective Encounter Date: 06/09/19 Encounter Time: 10:15 Subjective: f/u s/p ICH with dysphagia, aphasia and TF's. Non-ambulatory but working with PT /OT/ST. Pending zachery placement with options per CM. - Objective Vital Signs & Weight: Vital Signs (12 hours) Temp Pulse Resp BP BP Pulse Ox 06/09/19 09:37 94 128/89 06/09/19 09:36 94 128/89 06/09/19 07:15 98.1 F 94 20 128/93 H 93 L 06/09/19 03:35 97.9 F 79 22 H 144/87 H 97 06/08/19 23:10 98 F 79 16 142/94 H 94 L Weight Admit Weight 216 lb 4.375 oz Weight 212 lb 3.2 oz Most Recent Monitor Data Heart Rate from ECG 95 NIBP 138/86 NIBP BP-Mean 103 Respiration from ECG 16 SpO2 94 I&O: 06/08/19 06/09/19 06/10/19 06:59 06:59 06:59 Intake Total 3390 1702 Output Total 2084 2049 Balance 1305 -348 Result Diagrams: 05/23/19 03:30 06/09/19 04:25 Additional Labs: Accuchecks 06/09/19 06/09/19 06/08/19 06:31 00:49 18:21 POC Glucose 124 H 112 H 130 H 06/08/19 13:06 POC Glucose 105 EKG Reviewed by me: Yes (Tele - SR) Hospitalist ROS - Medication Medications: Active Medications Generic Name Dose Route Start Last Admin Trade Name Freq PRN Reason Stop Dose Admin Acetaminophen 650 mg 05/22/19 23:17 06/02/19 23:10 Tylenol [place] 650 mg Q4H PRN Administration Headache/Fever or Pain Acetaminophen 650 mg 06/06/19 05:31 06/08/19 21:43 Tylenol Elixir PO 650 mg Q4H PRN Administration Fever/Mild Pain Amiodarone HCl 400 mg 06/08/19 21:00 06/09/19 09:36 Cordarone PO 400 mg BID CRUZ Administration Amlodipine Besylate 10 mg 05/24/19 09:00 06/09/19 09:36 Norvasc PO 10 mg DAILY CRUZ Administration Carvedilol 12.5 mg 06/07/19 17:00 06/09/19 09:36 Coreg PO 12.5 mg BID-WM CRUZ Administration Hydralazine HCl 25 mg 05/31/19 21:00 06/09/19 09:37 Apresoline PER TUBE 25 mg BID CRUZ Administration Sodium Chloride 10 ml 05/21/19 21:00 06/09/19 09:37 Flush - Normal Saline IVF 10 ml Q12HR CRUZ Administration Sodium Chloride 10 ml 05/21/19 14:16 05/27/19 02:32 Flush - Normal Saline IVF 10 ml PRN PRN Administration Saline Flush - Exam General Appearance: NAD, awake alert Eye: PERRL, anicteric sclera ENT: normocephalic atraumatic, no oropharyngeal lesions Neck: supple, symmetric, no JVD, no thyromegaly Heart: RRR, no murmur, no gallops, no rubs, normal peripheral pulses Respiratory: CTAB, no wheezes, no rales, no ronchi, normal chest expansion Gastrointestinal: soft, non-tender, non-distended, normal bowel sounds Gastrointestinal - other findings: PEG in place Extremities: no cyanosis, no clubbing, no edema Skin: normal turgor, no lesions Neurological: no new deficit Neurological - other findings: R hemiplegia, aphasic, dysphagia Musculoskeletal: normal tone Psychiatric: oriented to person Hosp A/P (1) Cerebral parenchymal hemorrhage Code(s): I61.9 - NONTRAUMATIC INTRACEREBRAL HEMORRHAGE, UNSPECIFIED Status: Acute Qualifiers: Cerebral hemorrhage location: cerebral hemisphere, cortical portion Laterality: left Plan: Bedbound currently, R hemiplegia, supportive mgmt, pending potential charitable SNF options (2) Hemiplegia affecting right dominant side Code(s): G81.91 - HEMIPLEGIA, UNSPECIFIED AFFECTING RIGHT DOMINANT SIDE Status : Acute Plan: See above #1 (3) Mixed aphasia Code(s): 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.01 - APHASIA Status: Acute (4) HTN (hypertension) Code(s): I10 - ESSENTIAL (PRIMARY) HYPERTENSION Status: Chronic Qualifiers: Hypertension type: essential hypertension Qualified Code(s): I10 - Essential (primary) hypertension Plan: Stable currently, continue current BP regimen (5) Dysphagia Code(s): R13.10 - DYSPHAGIA, UNSPECIFIED Status: Acute Plan: Continue TF's, monitor for aspiration and residuals - Plan continue antibiotics, PT/OT, elementary school social worker, speech therapy, DVT proph w/SCDs Stable currently Awaiting potential charitable SNF options with CM Continue nutritional support with TF's PT/OT for mobilization
--- NOTE | 2019-06-09 14:10 | PDOC.CPN ---
- Subjective Date: 06/09/19 Time: 14:08 Interval history: No new issues. No more VT on monitor. - Review of Systems General: denies: fever/chills, weight/appetite/sleep changes, night sweats, fatigue Respiratory: denies: cough, congestion, shortness of breath, exercise intolerance Cardiovascular: denies: chest pain, palpitation, edema, paroxysmal nocturnal dyspnea, orthopnea Gastrointestinal: denies: nausea, vomiting, diarrhea, constipation, abd pain, GI bleeding Musculoskeletal: denies: pain, tenderness, stiffness, swelling, arthritis/ arthralgias Neurological: denies: numbness, syncope, seizure, weakness - Objective Allergies/Adverse Reactions: Allergies Allergy/AdvReac Type Severity Reaction Status Date / Time iodine Allergy Rash Verified 05/28/19 19:31 Visit Medications: Current Medications Acetaminophen (Tylenol) 650 mg RI Q4H PRN PRN Reason: Headache/Fever or Pain Last Admin: 06/02/19 23:10 Dose: 650 mg Acetaminophen (Tylenol Elixir) 650 mg PO Q4H PRN PRN Reason: Fever/Mild Pain Last Admin: 06/08/19 21:43 Dose: 650 mg Hydrocodone Bitart/Acetaminophen (Hydrocodone-Apap 7.5-325/15) 15 ml PO Q6H PRN PRN Reason: Moderate to Severe Pain (6-10) Amiodarone HCl (Cordarone) 400 mg PO BID [facility] Last Admin: 06/09/19 09:36 Dose: 400 mg Amlodipine Besylate (Norvasc) 10 mg PO DAILY [facility] Last Admin: 06/09/19 09:36 Dose: 10 mg Lipase/Protease/Amylase ([place] [id number]) 1 cap PER TUBE PRN PRN PRN Reason: TUBE OCCLUSION [place] Carvedilol (Coreg) 12.5 mg PO BID-WM [facility] Last Admin: 06/09/19 09:36 Dose: 12.5 mg Ciprofloxacin (Cipro) 500 mg PER TUBE 0600,2000 [facility] Dextrose/Water (Dextrose 50%) 25 gm SLOW IVP PRN PRN PRN Reason: Hypoglycemia Glucagon (Glucagon) 1 mg IM PRN PRN PRN Reason: Hypoglycemia Hydralazine HCl (Apresoline) 25 mg PER TUBE BID [facility] Last Admin: 06/09/19 09:37 Dose: 25 mg Dextrose/Water (D5w) 1,000 mls @ 0 mls/hr IV .Q0M PRN PRN Reason: Hypoglycemia Insulin Human Lispro (Humalog) 0 units SC .MILD SLIDING SCALE PRN PRN Reason: Mild Correctional Scale Sodium Bicarbonate (Bicarbonate, Sodium) 650 mg PER TUBE PRN PRN PRN Reason: TUBE OCCLUSION [place] Sodium Chloride (Flush - Normal Saline) 10 ml IVF Q12HR CRUZ Last Admin: 06/09/19 09:37 Dose: 10 ml Sodium Chloride (Flush - Normal Saline) 10 ml IVF PRN PRN PRN Reason: Saline Flush Last Admin: 05/27/19 02:32 Dose: 10 ml Vital Signs & Weight: Vital Signs Temp Pulse Pulse Pulse Resp BP BP 06/09/19 12:00 98.7 F 85 24 H 06/09/19 09:37 94 128/89 06/09/19 09:36 94 128/89 06/09/19 09:05 97 96 128/89 06/09/19 07:15 98.1 F 94 20 06/09/19 03:35 97.9 F 79 22 H BP BP Pulse Ox 06/09/19 12:00 105/68 97 06/09/19 09:37 06/09/19 09:36 06/09/19 09:05 140/86 06/09/19 07:15 128/93 H 93 L 06/09/19 03:35 144/87 H 97 Admit Weight 216 lb 4.375 oz Weight 212 lb 3.2 oz - Physical Exam General: no apparent distress HEENT: mucus membranes moist Neck: supple neck Cardiac: regular rate and rhythm, no murmur Lungs: normal breath sounds Abdomen: active bowel sounds, soft, non-tender Extremities: no edema Skin: clear Musculoskeletal: no pain - Labs Result Diagrams: 05/23/19 03:30 06/09/19 04:25 Troponin/CKMB Troponin I 0.021 ng/mL (< 0.028) 05/21/19 20:17 - Telemetry Sinus rhythms and dysrhythmias: sinus rhythm - Assessment/Plan Assessment/Plan: 1. Non sustained VT 2. hemorrhagic CVA 3. HTN PLAN: - Continue Amiodarone load. - Cannot assess for ischemia in the setting of hemorrhagic CVA - Plan to re evaluate in the office in 2 months. - Will follow.
[2019-06-09] MEDS: Ciprofloxacin 500 MG TAB PER TUBE SCH (22:02)
[2019-06-10] MEDS: Ciprofloxacin 500 MG TAB PER TUBE SCH ×2 (06:27→21:59)
[2019-06-10] MEDS: Amiodarone 200 MG TAB PO SCH ×2 (10:42→21:59)
[2019-06-10] MEDS: Amlodipine 10 MG TAB PO SCH (10:42)
[2019-06-10] MEDS: hydrALAZINE 25 MG TAB PER TUBE SCH ×2 (10:42→21:59)
[2019-06-10] MEDS: Carvedilol 6.25 MG TAB PO SCH ×2 (10:42→17:44)
--- NOTE | 2019-06-10 14:59 | PDOC.CPN ---
- Subjective Date: 06/10/19 Time: 14:57 Interval history: No new issues. - Review of Systems General: denies: fever/chills, weight/appetite/sleep changes, night sweats, fatigue Respiratory: denies: cough, congestion, shortness of breath, exercise intolerance Cardiovascular: denies: chest pain, palpitation, edema, paroxysmal nocturnal dyspnea, orthopnea Gastrointestinal: denies: nausea, vomiting, diarrhea, constipation, abd pain, GI bleeding Musculoskeletal: denies: pain, tenderness, stiffness, swelling, arthritis/ arthralgias Neurological: denies: numbness, syncope, seizure, weakness - Objective Allergies/Adverse Reactions: Allergies Allergy/AdvReac Type Severity Reaction Status Date / Time iodine Allergy Rash Verified 05/28/19 19:31 Visit Medications: Current Medications Acetaminophen (Tylenol) 650 mg [place] Q4H PRN PRN Reason: Headache/Fever or Pain Last Admin: 06/02/19 23:10 Dose: 650 mg Acetaminophen (Tylenol Elixir) 650 mg PO Q4H PRN PRN Reason: Fever/Mild Pain Last Admin: 06/08/19 21:43 Dose: 650 mg Hydrocodone Bitart/Acetaminophen (Hydrocodone-Apap 7.5-325/15) 15 ml PO Q6H PRN PRN Reason: Moderate to Severe Pain (6-10) Amiodarone HCl (Cordarone) 400 mg PO BID [facility] Last Admin: 06/10/19 10:42 Dose: 400 mg Amlodipine Besylate (Norvasc) 10 mg PO DAILY [facility] Last Admin: 06/10/19 10:42 Dose: 10 mg Lipase/Protease/Amylase ([place] [id number]) 1 cap PER TUBE PRN PRN PRN Reason: TUBE OCCLUSION [place] Carvedilol (Coreg) 12.5 mg PO BID-[facility] Last Admin: 06/10/19 10:42 Dose: 12.5 mg Ciprofloxacin (Cipro) 500 mg PER TUBE 0600,2000 [facility] Last Admin: 06/10/19 06:27 Dose: 500 mg Dextrose/Water (Dextrose 50%) 25 gm SLOW IVP PRN PRN PRN Reason: Hypoglycemia Glucagon (Glucagon) 1 mg IM PRN PRN PRN Reason: Hypoglycemia Hydralazine HCl (Apresoline) 25 mg PER TUBE BID [facility] Last Admin: 06/10/19 10:42 Dose: 25 mg Dextrose/Water (D5w) 1,000 mls @ 0 mls/hr IV .Q0M PRN PRN Reason: Hypoglycemia Insulin Human Lispro (Humalog) 0 units SC .MILD SLIDING SCALE PRN PRN Reason: Mild Correctional Scale Sodium Bicarbonate (Bicarbonate, Sodium) 650 mg PER TUBE PRN PRN PRN Reason: TUBE OCCLUSION [place] Sodium Chloride (Flush - Normal Saline) 10 ml IVF Q12HR CRUZ Last Admin: 06/10/19 10:43 Dose: 10 ml Sodium Chloride (Flush - Normal Saline) 10 ml IVF PRN PRN PRN Reason: Saline Flush Last Admin: 05/27/19 02:32 Dose: 10 ml Vital Signs & Weight: Vital Signs Temp Pulse Pulse Pulse Resp BP BP 06/10/19 11:49 97.6 F 92 16 06/10/19 10:42 82 123/78 06/10/19 09:57 87 95 123/78 06/10/19 08:00 97.8 F 82 16 06/10/19 04:00 98.9 F 78 16 BP BP Pulse Ox 06/10/19 11:49 101/71 94 L 06/10/19 10:42 06/10/19 09:57 137/84 06/10/19 08:00 105/68 94 L 06/10/19 04:00 112/75 96 Admit Weight 216 lb 4.375 oz Weight 212 lb 3.2 oz - Physical Exam General: appears well HEENT: mucus membranes moist Neck: supple neck, midline trachea Cardiac: regular rate and rhythm Lungs: normal breath sounds Neuro: weakness Abdomen: active bowel sounds, soft, non-tender Extremities: no edema Skin: clear Musculoskeletal: no pain - Labs Result Diagrams: 05/23/19 03:30 06/09/19 04:25 Troponin/CKMB Troponin I 0.021 ng/mL (< 0.028) 05/21/19 20:17 - Telemetry Sinus rhythms and dysrhythmias: sinus rhythm - Assessment/Plan Assessment/Plan: 1. Non sustained VT 2. Hemorrhagic CVA 3. HTN PLAN: - Continue Amiodarone load at 400 mg PO BID for 7 more days and then 200 mg dialy. - Cannot assess for ischemia in the setting of hemorrhagic CVA - Plan to re evaluate in the office in 2 months. - Will sign off. Please call with any questions.
--- NOTE | 2019-06-10 15:33 | PDOC.HOSPP ---
- Subjective Encounter Date: 06/10/19 Encounter Time: 15:30 Subjective: f/u for ICH with dysphagia s/p PEG, aphasic and R hemiparesis. Awaiting disposition planning with CM assistance. - Objective Vital Signs & Weight: Vital Signs (12 hours) Temp Pulse Pulse Pulse Resp BP BP 06/10/19 11:49 97.6 F 92 16 06/10/19 10:42 82 123/78 06/10/19 09:57 87 95 123/78 06/10/19 08:00 97.8 F 82 16 06/10/19 04:00 98.9 F 78 16 BP BP Pulse Ox 06/10/19 11:49 101/71 94 L 06/10/19 10:42 06/10/19 09:57 137/84 06/10/19 08:00 105/68 94 L 06/10/19 04:00 112/75 96 Weight Admit Weight 216 lb 4.375 oz Weight 212 lb 3.2 oz Most Recent Monitor Data Heart Rate from ECG 95 NIBP 138/86 NIBP BP-Mean 103 Respiration from ECG 16 SpO2 94 I&O: 06/09/19 06/10/19 06/11/19 06:59 06:59 06:59 Intake Total 1702 2463 534 Output Total 2050 775 900 Balance -348 2437 -570 Result Diagrams: 05/23/19 03:30 06/09/19 04:25 Additional Labs: Accuchecks 06/10/19 06/10/19 06/10/19 12:23 05:47 00:53 POC Glucose 179 H 118 H 120 H 06/09/19 18:13 POC Glucose 176 H EKG Reviewed by me: Yes (Tele - SR) Hospitalist ROS - Medication Medications: Active Medications Generic Name Dose Route Start Last Admin Trade Name Freq PRN Reason Stop Dose Admin Acetaminophen 650 mg 05/22/19 23:17 06/02/19 23:10 Tylenol [place] 650 mg Q4H PRN Administration Headache/Fever or Pain Acetaminophen 650 mg 06/06/19 05:31 06/08/19 21:43 Tylenol Elixir PO 650 mg Q4H PRN Administration Fever/Mild Pain Amiodarone HCl 400 mg 06/08/19 21:00 06/10/19 10:42 Cordarone PO 400 mg BID CRUZ Administration Amlodipine Besylate 10 mg 05/24/19 09:00 06/10/19 10:42 Norvasc PO 10 mg DAILY CRUZ Administration Carvedilol 12.5 mg 06/07/19 17:00 06/10/19 10:42 Coreg PO 12.5 mg BID-WM CRUZ Administration Ciprofloxacin 500 mg 06/09/19 20:00 06/10/19 06:27 Cipro PER TUBE 500 mg 0600,2000 CRUZ Administration Hydralazine HCl 25 mg 05/31/19 21:00 06/10/19 10:42 Apresoline PER TUBE 25 mg BID CRUZ Administration Sodium Chloride 10 ml 05/21/19 21:00 06/10/19 10:43 Flush - Normal Saline IVF 10 ml Q12HR CRUZ Administration Sodium Chloride 10 ml 05/21/19 14:16 05/27/19 02:32 Flush - Normal Saline IVF 10 ml PRN PRN Administration Saline Flush - Exam General Appearance: NAD, awake alert Eye: PERRL, anicteric sclera ENT: normocephalic atraumatic, no oropharyngeal lesions Neck: supple, symmetric, no JVD, no thyromegaly Heart: RRR, no gallops, no rubs, normal peripheral pulses Respiratory: CTAB, no wheezes, no rales, no ronchi Gastrointestinal: soft, non-tender, non-distended, normal bowel sounds Extremities: no cyanosis, no clubbing, 1+ LE edema Skin: normal turgor, no lesions Neurological - other findings: R hemiparesis, dysarthria, expressive dysphasia Musculoskeletal: generalized weakness Psychiatric: oriented to person, flat affect Hosp A/P (1) Cerebral parenchymal hemorrhage Code(s): I61.9 - NONTRAUMATIC INTRACEREBRAL HEMORRHAGE, UNSPECIFIED Status: Acute Qualifiers: Cerebral hemorrhage location: cerebral hemisphere, cortical portion Laterality: left Plan: Supportive mgmt, no surgical intervention (2) Hemiplegia affecting right dominant side Code(s): G81.91 - HEMIPLEGIA, UNSPECIFIED AFFECTING RIGHT DOMINANT SIDE Status : Acute Plan: PT/OT for mobilization, ? Rehab options (3) Mixed aphasia Code(s): R47.01 - APHASIA Status: Acute (4) HTN (hypertension) Code(s): I10 - ESSENTIAL (PRIMARY) HYPERTENSION Status: Chronic Qualifiers: Hypertension type: essential hypertension Qualified Code(s): I10 - Essential (primary) hypertension Plan: Continue Amlodipine/Coreg/Hydralazine (5) Dysphagia Code(s): R13.10 - DYSPHAGIA, UNSPECIFIED Status: Acute Qualifiers: Dysphagia type: oropharyngeal phase Qualified Code(s): R13.12 - Dysphagia, oropharyngeal phase Plan: s/p PEG, continue TF's and monitor residuals - Plan continue antibiotics, PT/OT, neonatal social worker, speech therapy, DVT proph w/SCDs Stable currently Awaiting potential charitable SNF options with CM Continue nutritional support with TF's PT/OT for mobilization
--- NOTE | 2019-06-10 15:59 | EKG ---
Test Reason : URGENT Blood Pressure : / mmHG Vent. Rate : 099 BPM Atrial Rate : 099 BPM P-R Int : 162 ms QRS Dur : 088 ms QT Int : 358 ms P-R-T Axes : 040 -37 015 degrees QTc Int : 459 ms Sinus rhythm with Premature atrial complexes Left axis deviation Voltage criteria for left ventricular hypertrophy Cannot rule out Septal infarct , age undetermined Abnormal ECG When compared with ECG of 23-MAY-2019 01:59, Premature ventricular complexes are no longer Present Premature atrial complexes are now Present Incomplete right bundle branch block is no longer Present Minimal criteria for Septal infarct are now Present Confirmed by MARIA DE JESUS OKEEFE, DR. Barillas ([id number]) on 06/10/2019 3:59:06 PM Referred By: ADAM Confirmed By:DR. Eran PRETTY MD
[2019-06-11] MEDS: Ciprofloxacin 500 MG TAB PER TUBE SCH ×2 (05:31→20:50)
[2019-06-11] MEDS: Amiodarone 200 MG TAB PO SCH ×2 (09:06→20:50)
[2019-06-11] MEDS: Carvedilol 6.25 MG TAB PO SCH ×2 (09:06→17:26)
[2019-06-11] MEDS: Amlodipine 10 MG TAB PO SCH (09:07)
[2019-06-11] MEDS: hydrALAZINE 25 MG TAB PER TUBE SCH ×2 (09:07→20:50)
--- NOTE | 2019-06-11 19:38 | PDOC.HOSPP ---
- Subjective Encounter Date: 06/11/19 Encounter Time: 11:10 Subjective: f/u for ICH with R hemiplegia and dysarthria. No new events reported. - Objective Vital Signs & Weight: Vital Signs (12 hours) Temp Pulse Pulse Pulse Resp BP BP 06/11/19 17:26 104/63 06/11/19 15:46 97.8 F 84 12 06/11/19 13:43 76 72 110/79 06/11/19 11:35 98.0 F 76 20 06/11/19 09:07 80 107/69 06/11/19 09:06 107/69 06/11/19 08:00 06/11/19 07:46 98.1 F 80 16 BP BP Pulse Ox 06/11/19 17:26 06/11/19 15:46 112/78 95 06/11/19 13:43 109/74 06/11/19 11:35 99/63 97 06/11/19 09:07 06/11/19 09:06 06/11/19 08:00 94 L 06/11/19 07:46 107/69 94 L Weight Admit Weight 216 lb 4.375 oz Weight 212 lb 3.2 oz Most Recent Monitor Data Heart Rate from ECG 95 NIBP 138/86 NIBP BP-Mean 103 Respiration from ECG 16 SpO2 94 I&O: 06/10/19 06/11/19 06/12/19 06:59 06:59 06:59 Intake Total 2463 2760 1692 Output Total 775 1450 850 Balance 1688 1310 842 Result Diagrams: 05/23/19 03:30 06/09/19 04:25 Additional Labs: Accuchecks 06/11/19 06/11/19 06/11/19 18:18 12:25 06:06 POC Glucose 159 H 102 135 H 06/11/19 00:28 POC Glucose 123 H Hospitalist ROS - Medication Medications: Active Medications Generic Name Dose Route Start Last Admin Trade Name Freq PRN Reason Stop Dose Admin Acetaminophen 650 mg 05/22/19 23:17 06/02/19 23:10 Tylenol [place] 650 mg Q4H PRN Administration Headache/Fever or Pain Acetaminophen 650 mg 06/06/19 05:31 06/08/19 21:43 Tylenol Elixir PO 650 mg Q4H PRN Administration Fever/Mild Pain Amiodarone HCl 400 mg 06/08/19 21:00 06/11/19 09:06 Cordarone PO 400 mg BID CRUZ Administration Amlodipine Besylate 10 mg 05/24/19 09:00 06/11/19 09:07 Norvasc PO 10 mg DAILY CRUZ Administration Carvedilol 12.5 mg 06/07/19 17:00 06/11/19 17:26 Coreg PO 12.5 mg BID-WM CRUZ Administration Ciprofloxacin 500 mg 06/09/19 20:00 06/11/19 05:31 Cipro PER TUBE 500 mg 0600,1999 CRUZ Administration Hydralazine HCl 25 mg 05/31/19 21:00 06/11/19 09:07 Apresoline PER TUBE 25 mg BID CRUZ Administration Sodium Chloride 10 ml 05/21/19 21:00 06/11/19 09:34 Flush - Normal Saline IVF 10 ml Q12HR CRUZ Administration Sodium Chloride 10 ml 05/21/19 14:16 05/27/19 02:32 Flush - Normal Saline IVF 10 ml PRN PRN Administration Saline Flush - Exam General Appearance: NAD, awake alert Eye: PERRL, anicteric sclera ENT: normocephalic atraumatic, no oropharyngeal lesions Neck: supple, symmetric, no JVD, no thyromegaly Heart: RRR, no gallops, no rubs, normal peripheral pulses Respiratory: CTAB, no wheezes, no rales, no ronchi Gastrointestinal: soft, non-tender, non-distended, normal bowel sounds Extremities: no cyanosis, no clubbing, no edema Skin: normal turgor, no lesions Neurological: no new deficit Neurological - other findings: R hemiplegia, dysarthria Musculoskeletal: normal tone Musculoskeletal - other findings: LUE/LLE normal tone Psychiatric: oriented to person, oriented to place, flat affect Hosp A/P (1) Cerebral parenchymal hemorrhage Code(s): I61.9 - NONTRAUMATIC INTRACEREBRAL HEMORRHAGE, UNSPECIFIED Status: Acute Qualifiers: Cerebral hemorrhage location: cerebral hemisphere, cortical portion Laterality: left Plan: Supportive mgmt, avoid anticoagulation (2) Hemiplegia affecting right dominant side Code(s): G81.91 - HEMIPLEGIA, UNSPECIFIED AFFECTING RIGHT DOMINANT SIDE Status : Acute Plan: PT/OT for mobilization, Rehab options pending (3) Mixed aphasia Code(s): R47.01 - APHASIA Status: Acute (4) HTN (hypertension) Code(s): I10 - ESSENTIAL (PRIMARY) HYPERTENSION Status: Chronic Qualifiers: Hypertension type: essential hypertension Qualified Code(s): I10 - Essential (primary) hypertension Plan: Stable currently (5) Dysphagia Code(s): R13.10 - DYSPHAGIA, UNSPECIFIED Status: Acute Qualifiers: Dysphagia type: oropharyngeal phase Qualified Code(s): R13.12 - Dysphagia, oropharyngeal phase Plan: Nutritional support with TF's - Plan PT/OT, social group worker, speech therapy, DVT proph w/SCDs Stable currently Awaiting potential charitable SNF options with CM Continue nutritional support with TF's PT/OT for mobilization
[2019-06-12] MEDS ORDERED: Ciprofloxacin 500 MG TAB ONE (05:50)
[2019-06-12] MEDS: Ciprofloxacin 500 MG TAB PER TUBE SCH ×2 (13:16→21:19)
[2019-06-12 13:29] VITALS: BMI 38.8
[2019-06-12] MEDS: Carvedilol 6.25 MG TAB PO SCH ×3 (13:36→18:18)
[2019-06-12] MEDS: Amiodarone 200 MG TAB PO SCH ×2 (13:36→21:20)
[2019-06-12] MEDS: Amlodipine 10 MG TAB PO SCH (13:37)
[2019-06-12] MEDS: hydrALAZINE 25 MG TAB PER TUBE SCH ×2 (13:37→21:44)
--- NOTE | 2019-06-12 16:59 | PDOC.HOSPP ---
- Subjective Encounter Date: 06/12/19 Encounter Time: 16:50 Subjective: f/u for ICH with R hemiparesis, dysphagia receiving PEG tube feeds. Nsg reports hypotensive episode after sitting up in bed for 30min this pm. Resolved with laying down. - Objective Vital Signs & Weight: Vital Signs (12 hours) Pulse Pulse Pulse Resp BP BP BP 06/12/19 16:29 85 18 117/76 06/12/19 13:40 83 81 106/72 110/71 06/12/19 13:37 76 06/12/19 11:21 76 16 96/64 Pulse Ox 06/12/19 16:29 97 06/12/19 13:40 06/12/19 13:37 06/12/19 11:21 92 L Weight Admit Weight 216 lb 4.375 oz Weight 212 lb 3.2 oz Most Recent Monitor Data Heart Rate from ECG 95 NIBP 138/86 NIBP BP-Mean 103 Respiration from ECG 16 SpO2 94 I&O: 06/11/19 06/12/19 06/13/19 06:59 06:59 06:59 Intake Total 2760 1722 474 Output Total 1450 850 Balance 1310 872 474 Result Diagrams: 05/23/19 03:30 06/09/19 04:25 Additional Labs: Accuchecks 06/12/19 06/12/19 06/11/19 10:42 06:26 20:08 POC Glucose 182 H 114 H 97 06/11/19 18:18 POC Glucose 159 H EKG Reviewed by me: Yes (Tele - SR) Hospitalist ROS - Medication Medications: Active Medications Generic Name Dose Route Start Last Admin Trade Name Freq PRN Reason Stop Dose Admin Acetaminophen 650 mg 05/22/19 23:17 06/02/19 23:10 Tylenol [place] 650 mg Q4H PRN Administration Headache/Fever or Pain Acetaminophen 650 mg 06/06/19 05:31 06/08/19 21:43 Tylenol Elixir PO 650 mg Q4H PRN Administration Fever/Mild Pain Amiodarone HCl 400 mg 06/08/19 21:00 06/12/19 13:36 Cordarone PO Not Given BID [facility] Ciprofloxacin 500 mg 06/09/19 20:00 06/12/19 13:16 Cipro PER TUBE Not Given [facility] Hydralazine HCl 25 mg 05/31/19 21:00 06/12/19 13:37 Apresoline PER TUBE Not Given BID CRUZ Sodium Chloride 10 ml 05/21/19 21:00 06/12/19 13:37 Flush - Normal Saline IVF Not Given Q12HR CRUZ Sodium Chloride 10 ml 05/21/19 14:16 05/27/19 02:32 Flush - Normal Saline IVF 10 ml PRN PRN Administration Saline Flush - Exam General Appearance: NAD, awake alert Eye: PERRL, anicteric sclera ENT: normocephalic atraumatic, no oropharyngeal lesions Neck: supple, symmetric, no JVD, no thyromegaly, no lymphadenopathy Heart: RRR, no murmur, no gallops, no rubs, normal peripheral pulses Respiratory: CTAB, no wheezes, no rales, no ronchi, normal chest expansion Gastrointestinal: soft, non-tender, non-distended, normal bowel sounds Gastrointestinal - other findings: PEG in place Extremities: no cyanosis, no clubbing Skin: normal turgor, no lesions Neurological - other findings: R hemiparesis, dysphagia, dysarthria Musculoskeletal: generalized weakness Psychiatric: oriented to person Hosp A/P (1) Hypotension Status: Acute Plan: Iatrogenic, decrease Coreg 6.25mg BID and Norvasc 5mg daily, serial BP monitoring (2) Cerebral parenchymal hemorrhage Code(s): I61.9 - NONTRAUMATIC INTRACEREBRAL HEMORRHAGE, UNSPECIFIED Status: Acute Qualifiers: Cerebral hemorrhage location: cerebral hemisphere, cortical portion Laterality: left Plan: Continue general stroke protocol (3) Hemiplegia affecting right dominant side Code(s): G81.91 - HEMIPLEGIA, UNSPECIFIED AFFECTING RIGHT DOMINANT SIDE Status : Acute Plan: PT/OT for mobilization (4) Mixed aphasia Code(s): R47.01 - APHASIA Status: Acute (5) HTN (hypertension) Code(s): I10 - ESSENTIAL (PRIMARY) HYPERTENSION Status: Chronic Qualifiers: Hypertension type: essential hypertension Qualified Code(s): I10 - Essential (primary) hypertension (6) Dysphagia Code(s): R13.10 - DYSPHAGIA, UNSPECIFIED Status: Acute Qualifiers: Dysphagia type: oropharyngeal phase Qualified Code(s): R13.12 - Dysphagia, oropharyngeal phase Plan: Increase free H2O, continue TF's - Plan PT/OT, social media specialist, speech therapy, DVT proph w/SCDs Stable currently Awaiting potential charitable SNF options with CM Continue nutritional support with TF's, increase free-H2O PT/OT for mobilization Decrease Coreg/Norvasc by 1/2 dose
[2019-06-12] MEDS ORDERED: Amlodipine 5 MG TAB PO SCH (17:15)
[2019-06-12] MEDS: Senokot S 8.6-50 MG TAB PO PRN (21:19)
[2019-06-13] MEDS: Ciprofloxacin 500 MG TAB PER TUBE SCH ×2 (06:24→21:24)
[2019-06-13] MEDS: Amiodarone 200 MG TAB PO SCH ×2 (09:20→21:28)
[2019-06-13] MEDS: Carvedilol 6.25 MG TAB PO SCH ×2 (09:21→17:09)
[2019-06-13] MEDS: Amlodipine 5 MG TAB PO SCH (09:21)
[2019-06-13] MEDS: hydrALAZINE 25 MG TAB PER TUBE SCH ×2 (09:21→21:28)
[2019-06-13] MEDS: Acetaminophen 650 MG/20.3 ML UDCUP PO PRN (13:59)
--- NOTE | 2019-06-13 15:43 | PDOC.HOSPP ---
- Subjective Encounter Date: 06/13/19 Encounter Time: 15:15 Subjective: f/u ICH with dysphagia on PEG TF's. Feels better. Daughter states her mother is speaking clearer. - Objective Vital Signs & Weight: Vital Signs (12 hours) Temp Pulse Pulse Pulse Resp BP BP 06/13/19 13:19 75 72 112/67 06/13/19 12:08 99.3 F 74 14 06/13/19 09:21 76 118/74 06/13/19 07:52 06/13/19 07:48 98.6 F 81 15 06/13/19 03:58 98.3 F 81 16 BP BP BP Pulse Ox 06/13/19 13:19 115/79 111/75 06/13/19 12:08 105/70 100 06/13/19 09:21 06/13/19 07:52 122/72 06/13/19 07:48 95/66 97 06/13/19 03:58 95/66 96 Weight Admit Weight 216 lb 4.375 oz Weight 212 lb 3.2 oz Most Recent Monitor Data Heart Rate from ECG 95 NIBP 138/86 NIBP BP-Mean 103 Respiration from ECG 16 SpO2 94 I&O: 06/12/19 06/13/19 06/14/19 06:59 06:59 06:59 Intake Total 1722 3015 120 Output Total 850 1350 Balance 872 1665 120 Result Diagrams: 05/23/19 03:30 06/09/19 04:25 Additional Labs: Accuchecks 06/13/19 06/13/19 06/12/19 10:28 05:55 20:45 POC Glucose 159 H 96 85 06/12/19 17:09 POC Glucose 138 H EKG Reviewed by me: Yes (Tele - SR) Hospitalist ROS - Medication Medications: Active Medications Generic Name Dose Route Start Last Admin Trade Name Freq PRN Reason Stop Dose Admin Acetaminophen 650 mg 05/22/19 23:17 06/02/19 23:10 Tylenol [place] 650 mg Q4H PRN Administration Headache/Fever or Pain Acetaminophen 650 mg 06/06/19 05:31 06/13/19 13:59 Tylenol Elixir PO 650 mg Q4H PRN Administration Fever/Mild Pain Amiodarone HCl 400 mg 06/08/19 21:00 06/13/19 09:20 Cordarone PO 400 mg BID CRUZ Administration Amlodipine Besylate 5 mg 06/13/19 09:00 06/13/19 09:21 Norvasc PO 5 mg DAILY CRUZ Administration Carvedilol 6.25 mg 06/12/19 17:00 06/13/19 09:21 Coreg PO 6.25 mg BID-WM CRUZ Administration Ciprofloxacin 500 mg 06/09/19 20:00 06/13/19 06:24 Cipro PER TUBE 500 mg 0600,2000 CRUZ Administration Hydralazine HCl 25 mg 05/31/19 21:00 06/13/19 09:21 Apresoline PER TUBE 25 mg BID CRUZ Administration Senna/Docusate Sodium 1 tab 06/12/19 16:57 06/12/19 21:19 Senokot S PO 1 tab BIDPRN PRN Administration Constipation Sodium Chloride 10 ml 05/21/19 21:00 06/13/19 09:22 Flush - Normal Saline IVF 10 ml Q12HR CRUZ Administration Sodium Chloride 10 ml 05/21/19 14:16 05/27/19 02:32 Flush - Normal Saline IVF 10 ml PRN PRN Administration Saline Flush - Exam General Appearance: NAD, awake alert Eye: PERRL, anicteric sclera ENT: normocephalic atraumatic, no oropharyngeal lesions Neck: supple, symmetric, no JVD, no thyromegaly Heart: RRR, no murmur, no gallops, no rubs, normal peripheral pulses Respiratory: CTAB, no wheezes, no rales, no ronchi Gastrointestinal: soft, non-tender, non-distended, normal bowel sounds Extremities: no cyanosis, no clubbing, no edema Skin: normal turgor, no lesions Neurological: no new deficit Neurological - other findings: R hemiparesis, dysarthria, dysphagia Psychiatric: oriented to person, oriented to place Hosp A/P (1) Hypotension Status: Acute Plan: Iatrogenic, resolved, continue current BP regimen and monitor trend (2) Cerebral parenchymal hemorrhage Code(s): I61.9 - NONTRAUMATIC INTRACEREBRAL HEMORRHAGE, UNSPECIFIED Status: Acute Qualifiers: Cerebral hemorrhage location: cerebral hemisphere, cortical portion Laterality: left (3) Hemiplegia affecting right dominant side Code(s): G81.91 - HEMIPLEGIA, UNSPECIFIED AFFECTING RIGHT DOMINANT SIDE Status : Acute Plan: PT/OT for ROM exercises (4) Mixed aphasia Code(s): R47.01 - APHASIA Status: Acute Plan: Improved (5) HTN (hypertension) Code(s): I10 - ESSENTIAL (PRIMARY) HYPERTENSION Status: Chronic Qualifiers: Hypertension type: essential hypertension Qualified Code(s): I10 - Essential (primary) hypertension (6) Dysphagia Code(s): R13.10 - DYSPHAGIA, UNSPECIFIED Status: Acute Qualifiers: Dysphagia type: oropharyngeal phase Qualified Code(s): R13.12 - Dysphagia, oropharyngeal phase Plan: Re-evaluate for dysphagia, RIGHT OF WAY MAN pending - Plan plan discussed w/ family, PT/OT, rn social work, speech therapy, DVT proph w/ SCDs Stable currently Awaiting potential charitable SNF options with CM Continue nutritional support with TF's, increase free-H2O PT/OT for mobilization Decrease Coreg/Norvasc by 1/2 dose D/C Leon catheter RIGHT OF WAY MAN re-consulted for dysphagia screening Updated pt's daughter
[2019-06-14] MEDS: Acetaminophen 650 MG/20.3 ML UDCUP PO PRN ×2 (03:41→13:39)
[2019-06-14] MEDS: Ciprofloxacin 500 MG TAB PER TUBE SCH ×2 (06:51→21:18)
[2019-06-14] MEDS: Amiodarone 200 MG TAB PO SCH ×2 (09:04→21:16)
[2019-06-14] MEDS: Carvedilol 6.25 MG TAB PO SCH ×2 (09:05→16:28)
[2019-06-14] MEDS: Amlodipine 5 MG TAB PO SCH (09:05)
[2019-06-14] MEDS: hydrALAZINE 25 MG TAB PER TUBE SCH ×2 (09:05→21:19)
[2019-06-14] MEDS: Hydrocodone-Acetamin 15 ML UDCUP PO PRN ×2 (16:26→21:27)
--- NOTE | 2019-06-14 18:30 | PDOC.HOSPP ---
- Subjective Encounter Date: 06/14/19 Encounter Time: 11:05 Subjective: f/u ICH with R hemiparesis, dysarthria on PEG TF's. No new complaints. - Objective Vital Signs & Weight: Vital Signs (12 hours) Temp Pulse Resp BP BP Pulse Ox 06/14/19 16:28 137/95 H 06/14/19 09:05 73 126/80 06/14/19 08:06 98.6 F 75 15 128/82 97 Weight Admit Weight 216 lb 4.375 oz Weight 212 lb 3.2 oz Most Recent Monitor Data Heart Rate from ECG 95 NIBP 138/86 NIBP BP-Mean 103 Respiration from ECG 16 SpO2 94 I&O: 06/13/19 06/14/19 06/15/19 06:59 06:59 06:59 Intake Total 3015 1995 1517 Output Total 1350 3200 Balance 1665 -1205 1517 Result Diagrams: 05/23/19 03:30 06/09/19 04:25 Additional Labs: Accuchecks 06/14/19 06/14/19 06/14/19 16:31 10:55 06:03 POC Glucose 112 H 151 H 131 H 06/13/19 19:38 POC Glucose 102 EKG Reviewed by me: Yes (Tele - SR) Hospitalist ROS - Medication Medications: Active Medications Generic Name Dose Route Start Last Admin Trade Name Freq PRN Reason Stop Dose Admin Acetaminophen 650 mg 05/22/19 23:17 06/02/19 23:10 Tylenol [place] 650 mg Q4H PRN Administration Headache/Fever or Pain Acetaminophen 650 mg 06/06/19 05:31 06/14/19 13:39 Tylenol Elixir PO 650 mg Q4H PRN Administration Fever/Mild Pain Hydrocodone Bitart/Acetaminophen 15 ml 06/05/19 16:04 06/14/19 16:26 Hydrocodone-Apap 7.5-325/15 PO 15 ml Q6H PRN Administration Moderate to Severe Pain (6-10) Amiodarone HCl 400 mg 06/08/19 21:00 06/14/19 09:04 Cordarone PO 400 mg BID CRUZ Administration Amlodipine Besylate 5 mg 06/13/19 09:00 06/14/19 09:05 Norvasc PO 5 mg DAILY CRUZ Administration Carvedilol 6.25 mg 06/12/19 17:00 06/14/19 16:28 Coreg PO 6.25 mg BID-WM CRUZ Administration Ciprofloxacin 500 mg 06/09/19 20:00 06/14/19 06:51 Cipro PER TUBE 500 mg 599,1999 CRUZ Administration Hydralazine HCl 25 mg 05/31/19 21:00 06/14/19 09:05 Apresoline PER TUBE 25 mg BID CRUZ Administration Senna/Docusate Sodium 1 tab 06/12/19 16:57 06/12/19 21:19 Senokot S PO 1 tab BIDPRN PRN Administration Constipation Sodium Chloride 10 ml 05/21/19 21:00 06/14/19 09:06 Flush - Normal Saline IVF 10 ml Q12HR CRUZ Administration Sodium Chloride 10 ml 05/21/19 14:16 05/27/19 02:32 Flush - Normal Saline IVF 10 ml PRN PRN Administration Saline Flush - Exam General Appearance: NAD, awake alert Eye: PERRL, anicteric sclera ENT: normocephalic atraumatic, no oropharyngeal lesions Neck: supple, symmetric, no JVD, no thyromegaly Heart: RRR, no murmur, no gallops, no rubs, normal peripheral pulses Respiratory: CTAB, no wheezes, no rales, no ronchi, normal chest expansion Gastrointestinal: soft, non-tender, non-distended, normal bowel sounds Gastrointestinal - other findings: PEG in place Extremities: no cyanosis, no clubbing Skin: normal turgor, no lesions Neurological: no new deficit Neurological - other findings: R hemiparesis, dyarthria Musculoskeletal: generalized weakness Psychiatric: oriented to person, oriented to place Hosp A/P (1) Hypotension Status: Acute Plan: Resolved, continue current BP regimen (2) Cerebral parenchymal hemorrhage Code(s): I61.9 - NONTRAUMATIC INTRACEREBRAL HEMORRHAGE, UNSPECIFIED Status: Acute Qualifiers: Cerebral hemorrhage location: cerebral hemisphere, cortical portion Laterality: left (3) Hemiplegia affecting right dominant side Code(s): G81.91 - HEMIPLEGIA, UNSPECIFIED AFFECTING RIGHT DOMINANT SIDE Status : Acute (4) Mixed aphasia Code(s): R47.01 - APHASIA Status: Acute (5) HTN (hypertension) Code(s): I10 - ESSENTIAL (PRIMARY) HYPERTENSION Status: Chronic Qualifiers: Hypertension type: essential hypertension Qualified Code(s): I10 - Essential (primary) hypertension (6) Dysphagia Code(s): R13.10 - DYSPHAGIA, UNSPECIFIED Status: Acute Qualifiers: Dysphagia type: oropharyngeal phase Qualified Code(s): R13.12 - Dysphagia, oropharyngeal phase Plan: [employer] recommending advancing po intake after bedside evaluation - Plan PT/OT, social worker psychiatric, speech therapy, DVT proph w/SCDs Stable currently Awaiting potential charitable SNF options with CM Continue nutritional support with TF's, increase free-H2O Trial of po intake per [employer] recommendations PT/OT for mobilization Decrease Coreg/Norvasc by 1/2 dose D/C Leon catheter Updated pt's daughter
[2019-06-14] MEDS: Senokot S 8.6-50 MG TAB PO PRN (21:13)
[2019-06-15] MEDS: Ciprofloxacin 500 MG TAB PER TUBE SCH ×2 (05:17→21:00)
[2019-06-15] MEDS: Hydrocodone-Acetamin 15 ML UDCUP PO PRN ×3 (06:12→22:15)
[2019-06-15] MEDS: Carvedilol 6.25 MG TAB PO SCH ×2 (09:20→17:29)
[2019-06-15] MEDS: Amiodarone 200 MG TAB PO SCH ×2 (09:20→20:59)
[2019-06-15] MEDS: Senokot S 8.6-50 MG TAB PO PRN ×2 (09:20→20:58)
[2019-06-15] MEDS: hydrALAZINE 25 MG TAB PER TUBE SCH ×2 (09:20→20:59)
[2019-06-15] MEDS: Amlodipine 5 MG TAB PO SCH (09:20)
--- NOTE | 2019-06-15 13:50 | PDOC.HOSPP ---
- Subjective Subjective: Very unfortunate 68-year-old female who is from [facility] and here visiting family who suffered from hemorrhagic CVA. Patient has been hospitalized for 25 days. Patient has been seen evaluated by neurology/ neurosurgery and all medical management has been appropriate up and at this point. Patient has been recommended safer lower level of care to group home facility however this has been difficult as the patient is not a [place] citizen and are waiting on emergency funding for case management to assist in placement of this patient. I find the patient on the medical unit with telemetry she is resting in bed comfortably. Patient is no apparent distress. Patient is able to move her left side upper and lower extremity without difficulties. Patient able to wiggle the right toes. The right hand does appear to be flaccid and she is unable to move the arm at all. No family available this a.m. at bedside. - Objective Vital Signs & Weight: Vital Signs (12 hours) Temp Pulse Resp BP BP BP BP 06/15/19 12:00 98.8 F 72 12 111/74 06/15/19 10:00 103/70 93/61 06/15/19 09:20 68 111/65 06/15/19 08:00 06/15/19 07:57 97.8 F 68 14 111/65 06/15/19 05:14 98.9 F 76 16 BP Pulse Ox 06/15/19 12:00 94 L 06/15/19 10:00 06/15/19 09:20 06/15/19 08:00 94 L 06/15/19 07:57 94 L 06/15/19 05:14 108/68 94 L Weight Admit Weight 216 lb 4.375 oz Weight 212 lb 3.2 oz Most Recent Monitor Data Heart Rate from ECG 95 NIBP 138/86 NIBP BP-Mean 103 Respiration from ECG 16 SpO2 94 I&O: 06/14/19 06/15/19 06/16/19 06:59 06:59 06:59 Intake Total 1994 8051 1144 Output Total 3200 Balance -1205 2711 1144 Result Diagrams: 05/23/19 03:30 06/09/19 04:25 Additional Labs: Accuchecks 06/15/19 06/15/19 06/14/19 11:13 06:11 19:38 POC Glucose 144 H 108 106 06/14/19 16:31 POC Glucose 112 H Radiology Reviewed by me: Yes Hospitalist ROS - Review of Systems All other systems reviewed; all pertinent +/- noted in HPI/Subj - Medication Medications: Active Medications Generic Name Dose Route Start Last Admin Trade Name Freq PRN Reason Stop Dose Admin Acetaminophen 650 mg 05/22/19 23:17 06/02/19 23:10 Tylenol [place] 650 mg Q4H PRN Administration Headache/Fever or Pain Acetaminophen 650 mg 06/06/19 05:31 06/14/19 13:39 Tylenol Elixir PO 650 mg Q4H PRN Administration Fever/Mild Pain Hydrocodone Bitart/Acetaminophen 15 ml 06/05/19 16:04 06/15/19 12:44 Hydrocodone-Apap 7.5-325/15 PO 15 ml Q6H PRN Administration Moderate to Severe Pain (6-10) Amiodarone HCl 400 mg 06/08/19 21:00 06/15/19 09:20 Cordarone PO 400 mg BID CRUZ Administration Amlodipine Besylate 5 mg 06/13/19 09:00 06/15/19 09:20 Norvasc PO 5 mg DAILY CRUZ Administration Carvedilol 6.25 mg 06/12/19 17:00 06/15/19 09:20 Coreg PO 6.25 mg BID-WM CRUZ Administration Ciprofloxacin 500 mg 06/09/19 20:00 06/15/19 05:17 Cipro PER TUBE 500 mg 0600,2000 CRUZ Administration Hydralazine HCl 25 mg 05/31/19 21:00 06/15/19 09:20 Apresoline PER TUBE 25 mg BID CRUZ Administration Senna/Docusate Sodium 1 tab 06/12/19 16:57 06/15/19 09:20 Senokot S PO 1 tab BIDPRN PRN Administration Constipation Sodium Chloride 10 ml 05/21/19 21:00 06/15/19 09:21 Flush - Normal Saline IVF 10 ml Q12HR CRUZ Administration Sodium Chloride 10 ml 05/21/19 14:16 05/27/19 02:32 Flush - Normal Saline IVF 10 ml PRN PRN Administration Saline Flush - Exam General Appearance: NAD Eye: PERRL, anicteric sclera ENT: normocephalic atraumatic, moist mucosa Neck: supple, symmetric, no lymphadenopathy Heart: no murmur, no gallops, no rubs Respiratory: CTAB, no wheezes, no rales, no ronchi Gastrointestinal: soft, non-tender, non-distended, no guarding, no rigidity Extremities: no clubbing, no edema Skin: no lesions, no rashes Neurological: cranial nerve grossly intact, no new deficit Neurological - other findings: Right UE flacid. Right LE 3/5 motor. Globally very weak Musculoskeletal: generalized weakness, diffuse muscle atrophy Psychiatric: normal behavior, flat affect Hosp A/P (1) Cerebral parenchymal hemorrhage Code(s): I61.9 - NONTRAUMATIC INTRACEREBRAL HEMORRHAGE, UNSPECIFIED Status: Acute Qualifiers: Cerebral hemorrhage location: cerebral hemisphere, cortical portion Laterality: left (2) Dysphagia Code(s): R13.10 - DYSPHAGIA, UNSPECIFIED Status: Acute Qualifiers: Dysphagia type: oropharyngeal phase Qualified Code(s): R13.12 - Dysphagia, oropharyngeal phase (3) Hemiplegia affecting right dominant side Code(s): G81.91 - HEMIPLEGIA, UNSPECIFIED AFFECTING RIGHT DOMINANT SIDE Status : Acute (4) Mixed aphasia Code(s): R47.01 - APHASIA Status: Acute (5) HTN (hypertension) Code(s): I10 - ESSENTIAL (PRIMARY) HYPERTENSION Status: Chronic Qualifiers: Hypertension type: essential hypertension Qualified Code(s): I10 - Essential (primary) hypertension - Plan Plan: Medical unit with telemetry stroke unit patient is medically stable for lower level of care blood pressure control stroke regimen no ASA, antiplatelet, anticoagulation in the setting of bleed continue current plan of care case management consult it to help with placement for this patient long-term prognosis for this patient is guarded for meaningful recovery
[2019-06-16] MEDS: Acetaminophen 650 MG/20.3 ML UDCUP PO PRN ×3 (01:59→20:48)
[2019-06-16] MEDS: Ciprofloxacin 500 MG TAB PER TUBE SCH (05:59)
[2019-06-16] MEDS: Hydrocodone-Acetamin 15 ML UDCUP PO PRN ×2 (06:29→18:14)
[2019-06-16] MEDS: Senokot S 8.6-50 MG TAB PO PRN (10:23)
[2019-06-16] MEDS: Carvedilol 6.25 MG TAB PO SCH ×2 (10:24→18:16)
[2019-06-16] MEDS: hydrALAZINE 25 MG TAB PER TUBE SCH ×2 (10:25→20:48)
[2019-06-16] MEDS: Amiodarone 200 MG TAB PO SCH ×2 (10:25→20:48)
[2019-06-16] MEDS: Amlodipine 5 MG TAB PO SCH (10:26)
--- NOTE | 2019-06-16 10:55 | PDOC.HOSPP ---
- Subjective Subjective: Seen and examined. Very unfortunate 68-year-old female on 26 day hospital course for intracranial hemorrhage. Patient remains clinically unchanged. Patient with right-sided upper extremity flaccid paralysis. Right-sided lower extremity able to wiggle her toes. Breathing comfortably on room air. No acute changes or complaints. Continue current plan of care. Pending case management for placement. - Objective Vital Signs & Weight: Vital Signs (12 hours) Temp Pulse Resp BP BP Pulse Ox 06/16/19 10:26 75 121/75 06/16/19 10:25 75 121/75 06/16/19 10:24 121/75 06/16/19 07:43 98.7 F 73 18 121/75 94 L 06/16/19 04:00 98.0 F 72 16 115/69 93 L 06/16/19 00:00 98.1 F 74 16 102/64 92 L Weight Admit Weight 216 lb 4.375 oz Weight 212 lb 3.2 oz Most Recent Monitor Data Heart Rate from ECG 95 NIBP 138/86 NIBP BP-Mean 103 Respiration from ECG 16 SpO2 94 I&O: 06/15/19 06/16/19 06/17/19 06:59 06:59 06:59 Intake Total 2711 2873 Balance 2711 2873 Result Diagrams: 05/23/19 03:30 06/09/19 04:25 Additional Labs: Accuchecks 06/16/19 06/15/19 06/15/19 05:49 20:40 17:16 POC Glucose 108 95 108 06/15/19 11:13 POC Glucose 144 H Radiology Reviewed by me: Yes Hospitalist ROS - Review of Systems All other systems reviewed; all pertinent +/- noted in HPI/Subj - Medication Medications: Active Medications Generic Name Dose Route Start Last Admin Trade Name Freq PRN Reason Stop Dose Admin Acetaminophen 650 mg 05/22/19 23:17 06/02/19 23:10 Tylenol [place] 650 mg Q4H PRN Administration Headache/Fever or Pain Acetaminophen 650 mg 06/06/19 05:31 06/16/19 10:28 Tylenol Elixir PO 650 mg Q4H PRN Administration Fever/Mild Pain Hydrocodone Bitart/Acetaminophen 15 ml 06/15/19 21:53 06/16/19 06:29 Hydrocodone-Apap 7.5-325/15 PO 15 ml Q6H PRN Administration Moderate to Severe Pain (6-10) Amiodarone HCl 400 mg 06/08/19 21:00 06/16/19 10:25 Cordarone PO 400 mg BID CRUZ Administration Amlodipine Besylate 5 mg 06/13/19 09:00 06/16/19 10:26 Norvasc PO 5 mg DAILY CRUZ Administration Carvedilol 6.25 mg 06/12/19 17:00 06/16/19 10:24 Coreg PO 6.25 mg BID-WM CRUZ Administration Ciprofloxacin 500 mg 06/09/19 20:00 06/16/19 05:59 Cipro PER TUBE 500 mg 0600,2000 CRUZ Administration Hydralazine HCl 25 mg 05/31/19 21:00 06/16/19 10:25 Apresoline PER TUBE 25 mg BID CRUZ Administration Senna/Docusate Sodium 1 tab 06/12/19 16:57 06/16/19 10:23 Senokot S PO 1 tab BIDPRN PRN Administration Constipation Sodium Chloride 10 ml 05/21/19 21:00 06/16/19 10:27 Flush - Normal Saline IVF 10 ml Q12HR CRUZ Administration Sodium Chloride 10 ml 05/21/19 14:16 05/27/19 02:32 Flush - Normal Saline IVF 10 ml PRN PRN Administration Saline Flush - Exam General Appearance: NAD Eye: PERRL, anicteric sclera ENT: normocephalic atraumatic, moist mucosa Neck: supple, symmetric, no lymphadenopathy Heart: no murmur, no gallops, no rubs Respiratory: CTAB, no wheezes, no rales, no ronchi Gastrointestinal: soft, non-tender, no guarding, no rigidity Extremities: no edema Skin: no rashes Neurological: cranial nerve grossly intact, normal sensation to touch, no new deficit Neurological - other findings: Right UE flacid. Right LE 3/5 motor. Globally weak Musculoskeletal: generalized weakness Psychiatric: normal affect, normal behavior Hosp A/P (1) Cerebral parenchymal hemorrhage Code(s): I61.9 - NONTRAUMATIC INTRACEREBRAL HEMORRHAGE, UNSPECIFIED Status: Acute Qualifiers: Cerebral hemorrhage location: cerebral hemisphere, cortical portion Laterality: left (2) Dysphagia Code(s): R13.10 - DYSPHAGIA, UNSPECIFIED Status: Acute Qualifiers: Dysphagia type: oropharyngeal phase Qualified Code(s): R13.12 - Dysphagia, oropharyngeal phase (3) Hemiplegia affecting right dominant side Code(s): G81.91 - HEMIPLEGIA, UNSPECIFIED AFFECTING RIGHT DOMINANT SIDE Status : Acute (4) Mixed aphasia Code(s): R47.01 - APHASIA Status: Acute (5) HTN (hypertension) Code(s): I10 - ESSENTIAL (PRIMARY) HYPERTENSION Status: Chronic Qualifiers: Hypertension type: essential hypertension Qualified Code(s): I10 - Essential (primary) hypertension - Plan Plan: Medical unit with telemetry stroke unit Neurology consultation, recommendations appreciated Full course of oral ABX finished for e. faecalis UTI patient is medically stable for lower level of care blood pressure control stroke regimen no ASA, antiplatelet, anticoagulation in the setting of bleed continue current plan of care case management consult it to help with placement for this patient long-term prognosis for this patient is guarded for meaningful recovery
[2019-06-17] MEDS: Acetaminophen 650 MG/20.3 ML UDCUP PO PRN ×3 (02:15→12:18)
[2019-06-17] MEDS: Polyethylene Glycol 3350 17 GM Packet PO PRN ×2 (03:00→09:34)
[2019-06-17] MEDS: Senokot S 8.6-50 MG TAB PO PRN ×2 (03:00→09:31)
[2019-06-17] MEDS: Hydrocodone-Acetamin 15 ML UDCUP PO PRN ×3 (03:01→16:21)
[2019-06-17 05:11] LABS: #Eosinphils 0.3 thou/uL (0.0-0.7); #Lymphocytes 1.5 thou/uL (1.20-3.40); #Monocytes 0.9 thou/uL (0.11-0.59); #Neutrophils 3.7 thou/uL (1.40-6.50); %Basophils 0.8 % (0.0-1.0); %Eosinophils 5.2 % (0.0-10.0); %Lymphocytes 23.6 % (21.0-51.0); %Monocytes 13.4 % (0.0-10.0); %Neutrophils 57.1 % (42.0-75.0); Hemoglobin 11.2 g/dL (12.0-16.0); Mean Corpuscular HGB CONC 32.3 g/dL (32.0-36.0); Mean Corpuscular Hemoglobin 27.4 pg (27.0-31.0); Mean Corpuscular Volume 84.8 fL (78.0-98.0); Mean Platelet Volume 6.7 fL (7.4-10.4); Platelet Count 241 thou/uL (130-400); Red Blood Cell (RBC) Count 4.09 mill/uL (4.20-5.40); White Blood Cell (WBC) Count 6.4 thou/uL (4.8-10.8)
[2019-06-17 05:30] LABS: Anion Gap 12 mmol/L (10-20); BUN (Urea Nitrogen) 21 mg/dL (9.8-20.1); Calc. Creatinine Clearance 104 mL/min (70-130); Calcium 8.9 mg/dL (7.8-10.44); Carbon Dioxide 26 mmol/L (23-31); Chloride 102 mmol/L (98-107); Estimated GFR-MDRD 72; Glucose 116 mg/dL (80-115); Sodium 136 mmol/L (136-145)
[2019-06-17] MEDS: Amiodarone 200 MG TAB PO SCH ×2 (09:24→20:43)
[2019-06-17] MEDS: Amlodipine 5 MG TAB PO SCH (09:31)
[2019-06-17] MEDS: hydrALAZINE 25 MG TAB PER TUBE SCH (09:33)
[2019-06-17] MEDS: Carvedilol 6.25 MG TAB PO SCH ×2 (09:33→18:26)
--- NOTE | 2019-06-17 17:11 | PDOC.HOSPP ---
- Subjective Encounter Date: 06/17/19 Encounter Time: 11:09 Subjective: 68 y/o female admitted after a syncope and collapse while visiting a relative in the hospital followed by dense right hemiparesis and aphasia. Imaging confirmed left hemorrhagic stroke. aphasia has improved but she reamined densely hemiparetic. developed hypotension on ambulation. - Objective Vital Signs & Weight: Vital Signs (12 hours) Temp Pulse Resp BP BP BP BP 06/17/19 16:15 113/72 105/69 06/17/19 15:37 99.1 F 62 16 107/71 06/17/19 11:51 98 F 72 16 101/58 L 06/17/19 09:33 75 120/77 06/17/19 09:31 75 120/77 06/17/19 09:11 06/17/19 07:53 98.4 F 75 16 120/77 Pulse Ox 06/17/19 16:15 06/17/19 15:37 97 06/17/19 11:51 94 L 06/17/19 09:33 06/17/19 09:31 06/17/19 09:11 95 06/17/19 07:53 95 Weight Admit Weight 216 lb 4.375 oz Weight 212 lb 3.2 oz Most Recent Monitor Data Heart Rate from ECG 95 NIBP 138/86 NIBP BP-Mean 103 Respiration from ECG 16 SpO2 94 I&O: 06/16/19 06/17/19 06/18/19 06:59 06:59 06:59 Intake Total 2873 3461 720 Balance 2873 3461 720 Result Diagrams: 06/17/19 04:43 06/17/19 04:43 Additional Labs: Accuchecks 06/17/19 06/17/19 06/16/19 10:43 06:04 19:53 POC Glucose 140 H 123 H 141 H 06/16/19 17:20 POC Glucose 117 H Hospitalist ROS - Medication Medications: Active Medications Generic Name Dose Route Start Last Admin Trade Name Freq PRN Reason Stop Dose Admin Acetaminophen 650 mg 05/22/19 23:17 06/02/19 23:10 Tylenol [place] 650 mg Q4H PRN Administration Headache/Fever or Pain Acetaminophen 650 mg 06/06/19 05:31 06/17/19 12:18 Tylenol Elixir PO 650 mg Q4H PRN Administration Fever/Mild Pain Hydrocodone Bitart/Acetaminophen 15 ml 06/15/19 21:53 06/17/19 16:21 Hydrocodone-Apap 7.5-325/15 PO 15 ml Q6H PRN Administration Moderate to Severe Pain (6-10) Amiodarone HCl 400 mg 06/08/19 21:00 06/17/19 09:24 Cordarone PO 400 mg BID CRUZ Administration Amlodipine Besylate 5 mg 06/13/19 09:00 06/17/19 09:31 Norvasc PO 5 mg DAILY CRUZ Administration Carvedilol 6.25 mg 06/12/19 17:00 06/17/19 09:33 Coreg PO 6.25 mg BID-WM CRUZ Administration Hydralazine HCl 25 mg 05/31/19 21:00 06/17/19 09:33 Apresoline PER TUBE 25 mg BID CRUZ Administration Polyethylene Glycol 17 gm 06/17/19 02:47 06/17/19 09:34 Miralax PO 17 gm DAILYPRN PRN Administration CONSTIPATION Senna/Docusate Sodium 1 tab 06/12/19 16:57 06/17/19 09:31 Senokot S PO 1 tab BIDPRN PRN Administration Constipation Sodium Chloride 10 ml 05/21/19 21:00 06/17/19 09:35 Flush - Normal Saline IVF 10 ml Q12HR CRUZ Administration Sodium Chloride 10 ml 05/21/19 14:16 05/27/19 02:32 Flush - Normal Saline IVF 10 ml PRN PRN Administration Saline Flush - Exam General Appearance: awake alert General - other findings: morbidly obese ENT: normocephalic atraumatic Neck: supple, symmetric, no JVD Heart: RRR Respiratory: no wheezes, no rales, no ronchi, normal chest expansion Gastrointestinal: soft, non-tender, non-distended, normal bowel sounds Gastrointestinal - other findings: obese. PEG tube noted Extremities: no cyanosis, no edema Neurological: no new deficit Neurological - other findings: Right hemiparesis noted Psychiatric: A&O x 3 Hosp A/P (1) Cerebral parenchymal hemorrhage Code(s): I61.9 - NONTRAUMATIC INTRACEREBRAL HEMORRHAGE, UNSPECIFIED Status: Acute Qualifiers: Cerebral hemorrhage location: cerebral hemisphere, cortical portion Laterality: left (2) Hemiplegia affecting right dominant side Code(s): G81.91 - HEMIPLEGIA, UNSPECIFIED AFFECTING RIGHT DOMINANT SIDE Status : Acute (3) Dysphagia Code(s): R13.10 - DYSPHAGIA, UNSPECIFIED Status: Acute Qualifiers: Dysphagia type: oropharyngeal phase Qualified Code(s): R13.12 - Dysphagia, oropharyngeal phase (4) NSVT (nonsustained ventricular tachycardia) Code(s): I47.2 - VENTRICULAR TACHYCARDIA Status: Acute (5) Mild mitral regurgitation Code(s): I34.0 - NONRHEUMATIC MITRAL (VALVE) INSUFFICIENCY Status: Acute (6) Morbid obesity Code(s): E66.01 - MORBID (SEVERE) OBESITY DUE TO EXCESS CALORIES Status: Acute (7) Mild tricuspid regurgitation Code(s): I07.1 - RHEUMATIC TRICUSPID INSUFFICIENCY Status: Acute (8) Enterococcus UTI Code(s): N39.0 - URINARY TRACT INFECTION, SITE NOT SPECIFIED; B95.2 - ENTEROCOCCUS THE CAUSE OF DISEASES CLASSIFIED ELSEWHERE Status: Acute (9) Hypotension Status: Acute (10) Mixed aphasia Code(s): R47.01 - APHASIA Status: Acute (11) HTN (hypertension) Code(s): I10 - ESSENTIAL (PRIMARY) HYPERTENSION Status: Chronic Qualifiers: Hypertension type: essential hypertension Qualified Code(s): I10 - Essential (primary) hypertension (12) Leukocytosis Code(s): D72.829 - ELEVATED WHITE BLOOD CELL COUNT, UNSPECIFIED Status: Resolved - Plan DC amlodipine and hydralazine due to hypotension. Continue coreg Monitor vitals. Continie amiodarone. Awaiting placement.
[2019-06-18] MEDS: Hydrocodone-Acetamin 15 ML UDCUP PO PRN ×2 (04:08→18:13)
--- NOTE | 2019-06-18 09:13 | RAD ---
XR Chest 1 View HISTORY: Shortness of breath COMPARISON: 05/24/2019 FINDINGS: The heart is enlarged. The aorta is tortuous. The lungs are well expanded without focal are as of consolidation, pneumothorax or pleural effusions. There is no evidence of klaus pulmonary edema. IMPRESSION: No radiographic evidence of acute cardiopulmonary process.
[2019-06-18] MEDS: Polyethylene Glycol 3350 17 GM Packet PO PRN (09:58)
[2019-06-18] MEDS: Acetaminophen 650 MG/20.3 ML UDCUP PO PRN ×2 (09:58→14:40)
[2019-06-18] MEDS: Amiodarone 200 MG TAB PO SCH ×2 (10:00→21:44)
[2019-06-18] MEDS: Carvedilol 6.25 MG TAB PO SCH ×2 (10:00→18:01)
[2019-06-18] MEDS: Senokot S 8.6-50 MG TAB PO PRN (10:00)
--- NOTE | 2019-06-18 10:08 | PDOC.HOSPP ---
- Subjective Encounter Date: 06/18/19 Subjective: she is complaining of sob that started yesterday, it was progressive, she describes it as not being able to take a full breath. she appears very anxious as per her daughter who is at the bedside. a cxr stat was done and is negative. she does not have any chest pain. - Objective Vital Signs & Weight: Vital Signs (12 hours) Temp Pulse Resp BP Pulse Ox 06/18/19 08:20 100 F H 70 20 117/78 92 L 06/18/19 04:23 98.6 F 72 16 122/75 92 L 06/18/19 00:00 99.2 F 74 12 129/78 96 Weight Admit Weight 216 lb 4.375 oz Weight 212 lb 3.2 oz Most Recent Monitor Data Heart Rate from ECG 95 NIBP 138/86 NIBP BP-Mean 103 Respiration from ECG 16 SpO2 94 I&O: 06/17/19 06/18/19 06/19/19 06:59 06:59 06:59 Intake Total 3461 1440 Balance 3461 1440 Result Diagrams: 06/17/19 04:43 06/17/19 04:43 Additional Labs: Accuchecks 06/18/19 06/17/19 06/17/19 05:53 20:36 16:41 POC Glucose 163 H 124 H 103 06/17/19 10:43 POC Glucose 140 H Hospitalist ROS - Medication Medications: Active Medications Generic Name Dose Route Start Last Admin Trade Name Freq PRN Reason Stop Dose Admin Acetaminophen 650 mg 05/22/19 23:17 06/02/19 23:[address] 650 mg Q4H PRN Administration Headache/Fever or Pain Acetaminophen 650 mg 06/06/19 05:31 06/17/19 12:18 Tylenol Elixir PO 650 mg Q4H PRN Administration Fever/Mild Pain Hydrocodone Bitart/Acetaminophen 15 ml 06/15/19 21:53 06/18/19 04:08 Hydrocodone-Apap 7.5-325/15 PO 15 ml Q6H PRN Administration Moderate to Severe Pain (6-10) Amiodarone HCl 400 mg 06/08/19 21:00 06/17/19 20:43 Cordarone PO 400 mg BID CRUZ Administration Carvedilol 6.25 mg 06/12/19 17:00 06/17/19 18:26 Coreg PO 6.25 mg BID-WM CRUZ Administration Polyethylene Glycol 17 gm 06/17/19 02:47 06/17/19 09:34 Miralax PO 17 gm DAILYPRN PRN Administration CONSTIPATION Senna/Docusate Sodium 1 tab 06/12/19 16:57 06/17/19 09:31 Senokot S PO 1 tab BIDPRN PRN Administration Constipation Sodium Chloride 10 ml 05/21/19 21:00 06/17/19 20:44 Flush - Normal Saline IVF 10 ml Q12HR CRUZ Administration Sodium Chloride 10 ml 05/21/19 14:16 05/27/19 02:32 Flush - Normal Saline IVF 10 ml PRN PRN Administration Saline Flush - Exam General Appearance: NAD Eye: PERRL ENT: normocephalic atraumatic Heart: RRR Respiratory: CTAB, no wheezes, no rales, no ronchi Gastrointestinal: soft Extremities: no cyanosis Hosp A/P - Plan (1) Cerebral parenchymal hemorrhage Code(s): I61.9 - NONTRAUMATIC INTRACEREBRAL HEMORRHAGE, UNSPECIFIED Status: Acute Qualifiers: Cerebral hemorrhage location: cerebral hemisphere, cortical portion Laterality: left (2) Hemiplegia affecting right dominant side Code(s): G81.91 - HEMIPLEGIA, UNSPECIFIED AFFECTING RIGHT DOMINANT SIDE Status : Acute (3) Dysphagia Code(s): R13.10 - DYSPHAGIA, UNSPECIFIED Status: Acute Qualifiers: Dysphagia type: oropharyngeal phase Qualified Code(s): R13.12 - Dysphagia, oropharyngeal phase (4) NSVT (nonsustained ventricular tachycardia) Code(s): I47.2 - VENTRICULAR TACHYCARDIA Status: Acute (5) Mild mitral regurgitation Code(s): I34.0 - NONRHEUMATIC MITRAL (VALVE) INSUFFICIENCY Status: Acute (6) Morbid obesity Code(s): E66.01 - MORBID (SEVERE) OBESITY DUE TO EXCESS CALORIES Status: Acute (7) Mild tricuspid regurgitation Code(s): I07.1 - RHEUMATIC TRICUSPID INSUFFICIENCY Status: Acute (8) Enterococcus UTI Code(s): N39.0 - URINARY TRACT INFECTION, SITE NOT SPECIFIED; B95.2 - ENTEROCOCCUS THE CAUSE OF DISEASES CLASSIFIED ELSEWHERE Status: Acute (9) Hypotension Status: Acute (10) Mixed aphasia Code(s): R47.01 - APHASIA Status: Acute (11) HTN (hypertension) Code(s): I10 - ESSENTIAL (PRIMARY) HYPERTENSION Status: Chronic Qualifiers: Hypertension type: essential hypertension Qualified Code(s): I10 - Essential (primary) hypertension (12) Leukocytosis Code(s): D72.829 - ELEVATED WHITE BLOOD CELL COUNT, UNSPECIFIED Status: Resolved - Plan for 06/17 DC amlodipine and hydralazine due to hypotension. Continue coreg Monitor vitals. Continie amiodarone. Awaiting placement. plan for 06/18 patient developed sob since yesterday----her CXR is negative---I will do a VQ scan since she is ? allergic to iodine
--- NOTE | 2019-06-18 12:53 | NM ---
VENTILATION PERFUSION SCAN: 06/18/2019 PROVIDED CLINICAL HISTORY: Shortness of breath. CORRELATION: Radiograph of chest performed on 06/18/2019 at 8:45 a.m. TECHNIQUE: Technetium 99m labeled MAA 6.6 millicuries was given intravenously. Xenon-133 8.5 millicuries was given inhalational. FINDINGS: There is normal distribution of radiotracer throughout the lung parenchyma on the ventilation images without significant air trapping. There is a mildly inhomogeneous distribution of radiotracer through out the right lung apex without evidence for a moderate sized or pleural based ventilation perfusion mismatch. IMPRESSION: Low probability for pulmonary embolus. POS: OFF
[2019-06-18] MEDS ORDERED: Lorazepam 2 MG/ML VIAL SLOW IVP SCH (22:00)
[2019-06-18 22:11] LABS: #Eosinphils 0.3 thou/uL (0.0-0.7); #Lymphocytes 1.6 thou/uL (1.20-3.40); #Monocytes 0.8 thou/uL (0.11-0.59); #Neutrophils 3.4 thou/uL (1.40-6.50); %Basophils 0.5 % (0.0-1.0); %Eosinophils 4.5 % (0.0-10.0); %Lymphocytes 25.7 % (21.0-51.0); %Neutrophils 56.3 % (42.0-75.0); Hemoglobin 11.6 g/dL (12.0-16.0); Mean Corpuscular HGB CONC 32.4 g/dL (32.0-36.0); Mean Corpuscular Hemoglobin 27.8 pg (27.0-31.0); Mean Corpuscular Volume 85.7 fL (78.0-98.0); Mean Platelet Volume 6.7 fL (7.4-10.4); Platelet Count 238 thou/uL (130-400); RBC Distribution Width 13.9 % (11.5-14.5); Red Blood Cell (RBC) Count 4.19 mill/uL (4.20-5.40); White Blood Cell (WBC) Count 6.1 thou/uL (4.8-10.8)
[2019-06-18 22:25] LABS: ALT (SGPT) 7 U/L (8-55); AST (SGOT) 16 U/L (5-34); Albumin 3.4 g/dL (3.4-4.8); Alkaline Phosphatase 71 U/L (40-110); Anion Gap 9 mmol/L (10-20); BUN (Urea Nitrogen) 19 mg/dL (9.8-20.1); Bilirubin, Total 0.4 mg/dL (0.2-1.2); Calc. Creatinine Clearance 102 mL/min (70-130); Calcium 9.2 mg/dL (7.8-10.44); Carbon Dioxide 30 mmol/L (23-31); Chloride 105 mmol/L (98-107); Estimated GFR-MDRD 71; Globulin 2.7 g/dL (2.4-3.5); Glucose 96 mg/dL (80-115); Protein, Total 6.1 g/dL (6.0-8.3); Sodium 140 mmol/L (136-145)
[2019-06-19] MEDS: Carvedilol 6.25 MG TAB PO SCH ×2 (10:17→16:15)
[2019-06-19] MEDS: Amiodarone 200 MG TAB PO SCH ×2 (10:17→21:00)
[2019-06-19] MEDS: Acetaminophen 650 MG/20.3 ML UDCUP PO PRN (10:31)
--- NOTE | 2019-06-19 12:48 | PDOC.HOSPP ---
- Subjective Subjective: feels anxious and becopmes sob when she is anxious. - Objective Vital Signs & Weight: Vital Signs (12 hours) Temp Pulse Resp BP BP Pulse Ox 06/19/19 12:00 98.3 F 95 16 130/93 H 94 L 06/19/19 10:17 119/79 06/19/19 08:00 99.2 F 81 16 119/79 94 L Weight Admit Weight 216 lb 4.375 oz Weight 212 lb 3.2 oz Most Recent Monitor Data Heart Rate from ECG 95 NIBP 138/86 NIBP BP-Mean 103 Respiration from ECG 16 SpO2 94 I&O: 06/18/19 06/19/19 06/20/19 06:59 06:59 06:59 Intake Total 1440 1644 Balance 1440 1644 Result Diagrams: 06/18/19 21:59 06/18/19 21:59 Additional Labs: Accuchecks 06/19/19 06/19/19 06/18/19 10:35 05:54 20:00 POC Glucose 105 105 141 H 06/18/19 16:41 POC Glucose 148 H Hospitalist ROS - Medication Medications: Active Medications Generic Name Dose Route Start Last Admin Trade Name Freq PRN Reason Stop Dose Admin Acetaminophen 650 mg 05/22/19 23:17 06/02/19 23:10 Tylenol [place] 650 mg Q4H PRN Administration Headache/Fever or Pain Acetaminophen 650 mg 06/06/19 05:31 06/19/19 10:31 Tylenol Elixir PO 650 mg Q4H PRN Administration Fever/Mild Pain Hydrocodone Bitart/Acetaminophen 15 ml 06/15/19 21:53 06/18/19 18:13 Hydrocodone-Apap 7.5-325/15 PO 15 ml Q6H PRN Administration Moderate to Severe Pain (6-10) Amiodarone HCl 400 mg 06/08/19 21:00 06/19/19 10:17 Cordarone PO 400 mg BID CRUZ Administration Carvedilol 6.25 mg 06/12/19 17:00 06/19/19 10:17 Coreg PO 6.25 mg BID-WM CRUZ Administration Polyethylene Glycol 17 gm 06/17/19 02:47 06/18/19 09:58 Miralax PO 17 gm DAILYPRN PRN Administration CONSTIPATION Senna/Docusate Sodium 1 tab 06/12/19 16:57 06/18/19 10:00 Senokot S PO 1 tab BIDPRN PRN Administration Constipation Sodium Chloride 10 ml 05/21/19 21:00 06/19/19 10:20 Flush - Normal Saline IVF 10 ml Q12HR CRUZ Administration Sodium Chloride 10 ml 05/21/19 14:16 05/27/19 02:32 Flush - Normal Saline IVF 10 ml PRN PRN Administration Saline Flush - Exam General Appearance: NAD Eye: PERRL ENT: normocephalic atraumatic Respiratory: CTAB Gastrointestinal: soft, non-tender Neurological: hemiplegia (right sided weakness) Hosp A/P - Plan (1) Cerebral parenchymal hemorrhage Code(s): I61.9 - NONTRAUMATIC INTRACEREBRAL HEMORRHAGE, UNSPECIFIED Status: Acute Qualifiers: Cerebral hemorrhage location: cerebral hemisphere, cortical portion Laterality: left (2) Hemiplegia affecting right dominant side Code(s): G81.91 - HEMIPLEGIA, UNSPECIFIED AFFECTING RIGHT DOMINANT SIDE Status : Acute (3) Dysphagia Code(s): R13.10 - DYSPHAGIA, UNSPECIFIED Status: Acute Qualifiers: Dysphagia type: oropharyngeal phase Qualified Code(s): R13.12 - Dysphagia, oropharyngeal phase (4) NSVT (nonsustained ventricular tachycardia) Code(s): I47.2 - VENTRICULAR TACHYCARDIA Status: Acute (5) Mild mitral regurgitation Code(s): I34.0 - NONRHEUMATIC MITRAL (VALVE) INSUFFICIENCY Status: Acute (6) Morbid obesity Code(s): E66.01 - MORBID (SEVERE) OBESITY DUE TO EXCESS CALORIES Status: Acute (7) Mild tricuspid regurgitation Code(s): I07.1 - RHEUMATIC TRICUSPID INSUFFICIENCY Status: Acute (8) Enterococcus UTI Code(s): N39.0 - URINARY TRACT INFECTION, SITE NOT SPECIFIED; B95.2 - ENTEROCOCCUS THE CAUSE OF DISEASES CLASSIFIED ELSEWHERE Status: Acute (9) Hypotension Status: Acute (10) Mixed aphasia Code(s): R47.01 - APHASIA Status: Acute (11) HTN (hypertension) Code(s): I10 - ESSENTIAL (PRIMARY) HYPERTENSION Status: Chronic Qualifiers: Hypertension type: essential hypertension Qualified Code(s): I10 - Essential (primary) hypertension (12) Leukocytosis Code(s): D72.829 - ELEVATED WHITE BLOOD CELL COUNT, UNSPECIFIED Status: Resolved - Plan for 06/17 DC amlodipine and hydralazine due to hypotension. Continue coreg Monitor vitals. Continie amiodarone. Awaiting placement. plan for 06/18 patient developed sob since yesterday----her CXR is negative---I will do a VQ scan since she is ? allergic to iodine plan for 06/19 patient's anxiety seems to be causing her symptoms. will add ativan prn for anxiety.
[2019-06-19] MEDS: Lorazepam 0.5 MG TAB PO PRN ×2 (16:15→20:59)
[2019-06-19] MEDS: Hydrocodone-Acetamin 15 ML UDCUP PO PRN (19:11)
[2019-06-20] MEDS: Amiodarone 200 MG TAB PO SCH ×2 (09:57→21:56)
[2019-06-20] MEDS: Carvedilol 6.25 MG TAB PO SCH ×2 (09:58→17:00)
--- NOTE | 2019-06-20 11:22 | PDOC.HOSPP ---
- Subjective Subjective: seems to have no specific complaints, does not appear to be anxious. - Objective Vital Signs & Weight: Vital Signs (12 hours) Temp Pulse Resp BP BP Pulse Ox 06/20/19 09:58 136/77 06/20/19 07:52 98.9 F 63 20 126/83 94 L 06/20/19 04:00 99.1 F 69 16 119/66 95 06/19/19 23:47 98.8 F 71 16 127/74 93 L Weight Admit Weight 216 lb 4.375 oz Weight 212 lb 3.2 oz Most Recent Monitor Data Heart Rate from ECG 95 NIBP 138/86 NIBP BP-Mean 103 Respiration from ECG 16 SpO2 94 I&O: 06/19/19 06/20/19 06/21/19 06:59 06:59 06:59 Intake Total 1644 1014 Balance 1644 1014 Result Diagrams: 06/18/19 21:59 06/18/19 21:59 Additional Labs: Accuchecks 06/20/19 06/20/19 06/19/19 10:53 05:48 19:55 POC Glucose 126 H 104 114 H 06/19/19 16:52 POC Glucose 164 H Hospitalist ROS - Medication Medications: Active Medications Generic Name Dose Route Start Last Admin Trade Name Freq PRN Reason Stop Dose Admin Acetaminophen 650 mg 05/22/19 23:17 06/02/19 23:10 Tylenol [place] 650 mg Q4H PRN Administration Headache/Fever or Pain Acetaminophen 650 mg 06/06/19 05:31 06/19/19 10:31 Tylenol Elixir PO 650 mg Q4H PRN Administration Fever/Mild Pain Hydrocodone Bitart/Acetaminophen 15 ml 06/15/19 21:53 06/19/19 19:11 Hydrocodone-Apap 7.5-325/15 PO 15 ml Q6H PRN Administration Moderate to Severe Pain (6-10) Amiodarone HCl 400 mg 06/08/19 21:00 06/20/19 09:57 Cordarone PO 400 mg BID CRUZ Administration Carvedilol 6.25 mg 06/12/19 17:00 06/20/19 09:58 Coreg PO 6.25 mg BID-WM CRUZ Administration Lorazepam 0.5 mg 06/19/19 12:43 06/19/19 20:59 Ativan PO 0.5 mg TIDPRN PRN Administration Anxiety Polyethylene Glycol 17 gm 06/17/19 02:47 06/18/19 09:58 Miralax PO 17 gm DAILYPRN PRN Administration CONSTIPATION Senna/Docusate Sodium 1 tab 06/12/19 16:57 06/18/19 10:00 Senokot S PO 1 tab BIDPRN PRN Administration Constipation Sodium Chloride 10 ml 05/21/19 21:00 06/20/19 09:59 Flush - Normal Saline IVF 10 ml Q12HR CRUZ Administration Sodium Chloride 10 ml 05/21/19 14:16 05/27/19 02:32 Flush - Normal Saline IVF 10 ml PRN PRN Administration Saline Flush - Exam Eye: PERRL ENT: normocephalic atraumatic Respiratory: CTAB Gastrointestinal: soft, non-tender Neurological: cranial nerve grossly intact (right upper and lower extremities deficit) Hosp A/P - Plan (1) Cerebral parenchymal hemorrhage Code(s): I61.9 - NONTRAUMATIC INTRACEREBRAL HEMORRHAGE, UNSPECIFIED Status: Acute Qualifiers: Cerebral hemorrhage location: cerebral hemisphere, cortical portion Laterality: left (2) Hemiplegia affecting right dominant side Code(s): G81.91 - HEMIPLEGIA, UNSPECIFIED AFFECTING RIGHT DOMINANT SIDE Status : Acute (3) Dysphagia Code(s): R13.10 - DYSPHAGIA, UNSPECIFIED Status: Acute Qualifiers: Dysphagia type: oropharyngeal phase Qualified Code(s): R13.12 - Dysphagia, oropharyngeal phase (4) NSVT (nonsustained ventricular tachycardia) Code(s): I47.2 - VENTRICULAR TACHYCARDIA Status: Acute (5) Mild mitral regurgitation Code(s): I34.0 - NONRHEUMATIC MITRAL (VALVE) INSUFFICIENCY Status: Acute (6) Morbid obesity Code(s): E66.01 - MORBID (SEVERE) OBESITY DUE TO EXCESS CALORIES Status: Acute (7) Mild tricuspid regurgitation Code(s): I07.1 - RHEUMATIC TRICUSPID INSUFFICIENCY Status: Acute (8) Enterococcus UTI Code(s): N39.0 - URINARY TRACT INFECTION, SITE NOT SPECIFIED; B95.2 - ENTEROCOCCUS THE CAUSE OF DISEASES CLASSIFIED ELSEWHERE Status: Acute (9) Hypotension Status: Acute (10) Mixed aphasia Code(s): R47.01 - APHASIA Status: Acute (11) HTN (hypertension) Code(s): I10 - ESSENTIAL (PRIMARY) HYPERTENSION Status: Chronic Qualifiers: Hypertension type: essential hypertension Qualified Code(s): I10 - Essential (primary) hypertension (12) Leukocytosis Code(s): D72.829 - ELEVATED WHITE BLOOD CELL COUNT, UNSPECIFIED Status: Resolved - Plan for 06/17 DC amlodipine and hydralazine due to hypotension. Continue coreg Monitor vitals. Continie amiodarone. Awaiting placement. plan for 06/18 patient developed sob since yesterday----her CXR is negative---I will do a VQ scan since she is ? allergic to iodine plan for 06/19 patient's anxiety seems to be causing her symptoms. will add ativan prn for anxiety. plan for 06/20 awaiting appropriate placement jennifer continue same management
[2019-06-20] MEDS: Acetaminophen 650 MG/20.3 ML UDCUP PO PRN (14:37)
[2019-06-21] MEDS: Amiodarone 200 MG TAB PO SCH ×2 (10:45→21:40)
[2019-06-21] MEDS: Senokot S 8.6-50 MG TAB PO PRN (10:46)
[2019-06-21] MEDS: Carvedilol 6.25 MG TAB PO SCH ×2 (10:46→18:26)
--- NOTE | 2019-06-21 20:01 | PDOC.HOSPP ---
- Subjective Subjective: feeling well and has no complaints. - Objective Vital Signs & Weight: Vital Signs (12 hours) Temp Pulse Pulse Pulse Resp BP BP 06/21/19 18:26 108/63 06/21/19 15:55 99.5 F 67 16 06/21/19 12:00 98.1 F 63 16 06/21/19 11:20 68 64 144/92 H 06/21/19 10:46 148/83 H BP BP Pulse Ox 06/21/19 18:26 06/21/19 15:55 142/76 H 96 06/21/19 12:00 144/92 H 96 06/21/19 11:20 142/96 H 06/21/19 10:46 Weight Admit Weight 216 lb 4.375 oz Weight 212 lb 3.2 oz Most Recent Monitor Data Heart Rate from ECG 95 NIBP 138/86 NIBP BP-Mean 103 Respiration from ECG 16 SpO2 94 I&O: 06/20/19 06/21/19 06/22/19 06:59 06:59 06:59 Intake Total 1014 480 370 Balance 1014 480 370 Result Diagrams: 06/18/19 21:59 06/18/19 21:59 Additional Labs: Accuchecks 06/21/19 06/21/19 06/21/19 16:50 10:40 06:16 POC Glucose 150 H 108 114 H 06/20/19 20:01 POC Glucose 89 Hospitalist ROS - Medication Medications: Active Medications Generic Name Dose Route Start Last Admin Trade Name Freq PRN Reason Stop Dose Admin Acetaminophen 650 mg 05/22/19 23:17 06/02/19 23:10 Tylenol [place] 650 mg Q4H PRN Administration Headache/Fever or Pain Acetaminophen 650 mg 06/06/19 05:31 06/20/19 14:37 Tylenol Elixir PO 650 mg Q4H PRN Administration Fever/Mild Pain Hydrocodone Bitart/Acetaminophen 15 ml 06/15/19 21:53 06/19/19 19:11 Hydrocodone-Apap 7.5-325/15 PO 15 ml Q6H PRN Administration Moderate to Severe Pain (6-10) Amiodarone HCl 400 mg 06/08/19 21:00 06/21/19 10:45 Cordarone PO 400 mg BID CRUZ Administration Carvedilol 6.25 mg 06/12/19 17:00 06/21/19 18:26 Coreg PO 6.25 mg BID-WM CRUZ Administration Lorazepam 0.5 mg 06/19/19 12:43 06/19/19 20:59 Ativan PO 0.5 mg TIDPRN PRN Administration Anxiety Polyethylene Glycol 17 gm 06/17/19 02:47 06/18/19 09:58 Miralax PO 17 gm DAILYPRN PRN Administration CONSTIPATION Senna/Docusate Sodium 1 tab 06/12/19 16:57 06/21/19 10:46 Senokot S PO 1 tab BIDPRN PRN Administration Constipation Sodium Chloride 10 ml 05/21/19 21:00 06/21/19 10:46 Flush - Normal Saline IVF 10 ml Q12HR CRUZ Administration Sodium Chloride 10 ml 05/21/19 14:16 05/27/19 02:32 Flush - Normal Saline IVF 10 ml PRN PRN Administration Saline Flush - Exam General Appearance: NAD Eye: PERRL ENT: normocephalic atraumatic Neck: supple, symmetric Heart: RRR, no murmur, no gallops Respiratory: CTAB, no wheezes Gastrointestinal: soft, non-tender Hosp A/P - Plan (1) Cerebral parenchymal hemorrhage Code(s): I61.9 - NONTRAUMATIC INTRACEREBRAL HEMORRHAGE, UNSPECIFIED Status: Acute Qualifiers: Cerebral hemorrhage location: cerebral hemisphere, cortical portion Laterality: left (2) Hemiplegia affecting right dominant side Code(s): G81.91 - HEMIPLEGIA, UNSPECIFIED AFFECTING RIGHT DOMINANT SIDE Status : Acute (3) Dysphagia Code(s): R13.10 - DYSPHAGIA, UNSPECIFIED Status: Acute Qualifiers: Dysphagia type: oropharyngeal phase Qualified Code(s): R13.12 - Dysphagia, oropharyngeal phase (4) NSVT (nonsustained ventricular tachycardia) Code(s): I47.2 - VENTRICULAR TACHYCARDIA Status: Acute (5) Mild mitral regurgitation Code(s): I34.0 - NONRHEUMATIC MITRAL (VALVE) INSUFFICIENCY Status: Acute (6) Morbid obesity Code(s): E66.01 - MORBID (SEVERE) OBESITY DUE TO EXCESS CALORIES Status: Acute (7) Mild tricuspid regurgitation Code(s): I07.1 - RHEUMATIC TRICUSPID INSUFFICIENCY Status: Acute (8) Enterococcus UTI Code(s): N39.0 - URINARY TRACT INFECTION, SITE NOT SPECIFIED; B95.2 - ENTEROCOCCUS THE CAUSE OF DISEASES CLASSIFIED ELSEWHERE Status: Acute (9) Hypotension Status: Acute (10) Mixed aphasia Code(s): R47.01 - APHASIA Status: Acute (11) HTN (hypertension) Code(s): I10 - ESSENTIAL (PRIMARY) HYPERTENSION Status: Chronic Qualifiers: Hypertension type: essential hypertension Qualified Code(s): I10 - Essential (primary) hypertension (12) Leukocytosis Code(s): D72.829 - ELEVATED WHITE BLOOD CELL COUNT, UNSPECIFIED Status: Resolved - Plan for 06/17 DC amlodipine and hydralazine due to hypotension. Continue coreg Monitor vitals. Continie amiodarone. Awaiting placement. plan for 06/18 patient developed sob since yesterday----her CXR is negative---I will do a VQ scan since she is ? allergic to iodine plan for 06/19 patient's anxiety seems to be causing her symptoms. will add ativan prn for anxiety. plan for 06/20 awaiting appropriate placement will continue same management plan for 06/21 awaiting appropriate placement will continue same management
[2019-06-22] MEDS: Carvedilol 6.25 MG TAB PO SCH ×2 (08:36→16:44)
[2019-06-22] MEDS: Amiodarone 200 MG TAB PO SCH ×2 (08:37→21:36)
[2019-06-22] MEDS: Acetaminophen 650 MG/20.3 ML UDCUP PO PRN (12:58)
[2019-06-22] MEDS: Lorazepam 0.5 MG TAB PO PRN (12:58)
--- NOTE | 2019-06-22 14:32 | PDOC.HOSPP ---
- Subjective Subjective: Seen and examined. Patient is significantly improved from and I saw her roughly 5 days ago. Patient's right hand and arm she is able to move on her own and against gravity even. This is a dramatic improvement from when I saw her last. The right leg is also improving with strength. Patient breathing well on room air. No family at bedside this a.m. - Objective Vital Signs & Weight: Vital Signs (12 hours) Temp Pulse Resp BP BP BP Pulse Ox 06/22/19 11:59 98.3 F 70 18 129/83 97 06/22/19 08:36 126/78 06/22/19 08:00 98.9 F 65 16 126/78 92 L 06/22/19 03:28 98.9 F 66 16 135/83 94 L Weight Admit Weight 216 lb 4.375 oz Weight 212 lb 3.2 oz Most Recent Monitor Data Heart Rate from ECG 95 NIBP 138/86 NIBP BP-Mean 103 Respiration from ECG 16 SpO2 94 I&O: 06/21/19 06/22/19 06/23/19 06:59 06:59 06:59 Intake Total 480 430 Balance 480 430 Result Diagrams: 06/18/19 21:59 06/18/19 21:59 Additional Labs: Accuchecks 06/22/19 06/22/19 06/21/19 10:47 05:56 20:17 POC Glucose 124 H 113 H 141 H 06/21/19 16:50 POC Glucose 150 H Radiology Reviewed by me: Yes Hospitalist ROS - Review of Systems All other systems reviewed; all pertinent +/- noted in HPI/Subj - Medication Medications: Active Medications Generic Name Dose Route Start Last Admin Trade Name Abebe PRN Reason Stop Dose Admin Acetaminophen 650 mg 05/22/19 23:17 06/02/19 23:10 Tylenol [place] 650 mg Q4H PRN Administration Headache/Fever or Pain Acetaminophen 650 mg 06/06/19 05:31 06/22/19 12:58 Tylenol Elixir PO 650 mg Q4H PRN Administration Fever/Mild Pain Hydrocodone Bitart/Acetaminophen 15 ml 06/15/19 21:53 06/19/19 19:11 Hydrocodone-Apap 7.5-325/15 PO 15 ml Q6H PRN Administration Moderate to Severe Pain (6-10) Amiodarone HCl 400 mg 06/08/19 21:00 06/22/19 08:37 Cordarone PO 400 mg BID CRUZ Administration Carvedilol 6.25 mg 06/12/19 17:00 06/22/19 08:36 Coreg PO 6.25 mg BID-WM CRUZ Administration Lorazepam 0.5 mg 06/19/19 12:43 06/22/19 12:58 Ativan PO 0.5 mg TIDPRN PRN Administration Anxiety Polyethylene Glycol 17 gm 06/17/19 02:47 06/18/19 09:58 Miralax PO 17 gm DAILYPRN PRN Administration CONSTIPATION Senna/Docusate Sodium 1 tab 06/12/19 16:57 06/21/19 10:46 Senokot S PO 1 tab BIDPRN PRN Administration Constipation Sodium Chloride 10 ml 05/21/19 21:00 06/22/19 08:36 Flush - Normal Saline IVF 10 ml Q12HR CRUZ Administration Sodium Chloride 10 ml 05/21/19 14:16 05/27/19 02:32 Flush - Normal Saline IVF 10 ml PRN PRN Administration Saline Flush - Exam General Appearance: NAD, awake alert Eye: PERRL, anicteric sclera ENT: normocephalic atraumatic, moist mucosa Neck: supple, symmetric, no lymphadenopathy Heart: no murmur, no gallops, no rubs Respiratory: CTAB, no wheezes, no rales, no ronchi, no tachypnea Gastrointestinal: soft, non-tender, no guarding, no rigidity Extremities: no edema Skin: no lesions, no rashes Neurological: cranial nerve grossly intact, no new deficit Neurological - other findings: Improved right motor strength, very promising Musculoskeletal: generalized weakness Psychiatric: normal affect, normal behavior Hosp A/P (1) Cerebral parenchymal hemorrhage Code(s): I61.9 - NONTRAUMATIC INTRACEREBRAL HEMORRHAGE, UNSPECIFIED Status: Acute Qualifiers: Cerebral hemorrhage location: cerebral hemisphere, cortical portion Laterality: left (2) Dysphagia Code(s): R13.10 - DYSPHAGIA, UNSPECIFIED Status: Acute Qualifiers: Dysphagia type: oropharyngeal phase Qualified Code(s): R13.12 - Dysphagia, oropharyngeal phase (3) Hemiplegia affecting right dominant side Code(s): G81.91 - HEMIPLEGIA, UNSPECIFIED AFFECTING RIGHT DOMINANT SIDE Status : Acute (4) Mixed aphasia Code(s): R47.01 - APHASIA Status: Acute (5) HTN (hypertension) Code(s): I10 - ESSENTIAL (PRIMARY) HYPERTENSION Status: Chronic Qualifiers: Hypertension type: essential hypertension Qualified Code(s): I10 - Essential (primary) hypertension - Plan Plan: Medical unit with telemetry - stroke unit Neurology consultation, recommendations appreciated Full course of oral ABX finished for e. faecalis UTI patient is medically stable for lower level of care blood pressure control stroke regimen no ASA, antiplatelet, anticoagulation in the setting of bleed continue current plan of care case management consult it to help with placement for this patient long-term prognosis is guarded, though she has shown great improvement with strength on the right
[2019-06-22] MEDS: Senokot S 8.6-50 MG TAB PO PRN (21:36)
[2019-06-23] MEDS: Amiodarone 200 MG TAB PO SCH ×2 (09:10→21:38)
[2019-06-23] MEDS: Carvedilol 6.25 MG TAB PO SCH ×2 (09:10→17:45)
[2019-06-23] MEDS: Acetaminophen 650 MG/20.3 ML UDCUP PO PRN ×2 (09:28→15:42)
--- NOTE | 2019-06-23 14:09 | PDOC.HOSPP ---
- Subjective Subjective: Seen and examined. I again encouraged the patient to continue working with her right side upper and lower extremity to regain her strength and independence. I demonstrated exercises that the patient can do on her own in bed. Patient's improvements of the past week are very promising that she will be able to make recovery if she has aggressive therapy. travel specialist are looking towards Rehab placement, difficult secondary to insurance status. - Objective Vital Signs & Weight: Vital Signs (12 hours) Temp Pulse Pulse Resp BP BP BP 06/23/19 11:42 98.5 F 77 16 06/23/19 10:14 72 134/74 06/23/19 09:10 121/83 06/23/19 07:35 99.4 F 84 16 06/23/19 03:31 99 F 16 112/72 BP Pulse Ox 06/23/19 11:42 125/92 H 94 L 06/23/19 10:14 06/23/19 09:10 95 06/23/19 07:35 121/83 95 06/23/19 03:31 95 Weight Admit Weight 216 lb 4.375 oz Weight 212 lb 3.2 oz Most Recent Monitor Data Heart Rate from ECG 95 NIBP 138/86 NIBP BP-Mean 103 Respiration from ECG 16 SpO2 94 I&O: 06/22/19 06/23/19 06/24/19 06:59 06:59 06:59 Intake Total 430 600 Balance 430 600 Result Diagrams: 06/18/19 21:59 06/18/19 21:59 Additional Labs: Accuchecks 06/23/19 06/23/19 06/22/19 10:49 06:00 19:44 POC Glucose 173 H 114 H 105 06/22/19 16:47 POC Glucose 105 Hospitalist ROS - Review of Systems All other systems reviewed; all pertinent +/- noted in HPI/Subj - Medication Medications: Active Medications Generic Name Dose Route Start Last Admin Trade Name Freq PRN Reason Stop Dose Admin Acetaminophen 650 mg 05/22/19 23:17 06/02/19 23:10 Tylenol [place] 650 mg Q4H PRN Administration Headache/Fever or Pain Acetaminophen 650 mg 06/06/19 05:31 06/23/19 09:28 Tylenol Elixir PO 650 mg Q4H PRN Administration Fever/Mild Pain Hydrocodone Bitart/Acetaminophen 15 ml 06/15/19 21:53 06/19/19 19:11 Hydrocodone-Apap 7.5-325/15 PO 15 ml Q6H PRN Administration Moderate to Severe Pain (6-10) Amiodarone HCl 400 mg 06/08/19 21:00 06/23/19 09:10 Cordarone PO 400 mg BID CRUZ Administration Carvedilol 6.25 mg 06/12/19 17:00 06/23/19 09:10 Coreg PO 6.25 mg BID-WM CRUZ Administration Lorazepam 0.5 mg 06/19/19 12:43 06/22/19 12:58 Ativan PO 0.5 mg TIDPRN PRN Administration Anxiety Polyethylene Glycol 17 gm 06/17/19 02:47 06/18/19 09:58 Miralax PO 17 gm DAILYPRN PRN Administration CONSTIPATION Senna/Docusate Sodium 1 tab 06/12/19 16:57 06/22/19 21:36 Senokot S PO 1 tab BIDPRN PRN Administration Constipation Sodium Chloride 10 ml 05/21/19 21:00 06/23/19 09:11 Flush - Normal Saline IVF Not Given Q12HR CRUZ Sodium Chloride 10 ml 05/21/19 14:16 05/27/19 02:32 Flush - Normal Saline IVF 10 ml PRN PRN Administration Saline Flush - Exam General Appearance: NAD Eye: PERRL, anicteric sclera ENT: normocephalic atraumatic, moist mucosa Neck: supple, symmetric, no lymphadenopathy Heart: no murmur, no gallops, no rubs Respiratory: CTAB, no wheezes, no rales, no ronchi, normal chest expansion, no tachypnea Gastrointestinal: soft, non-tender, non-distended, no palpable masses, no guarding, no rigidity Extremities: no edema Skin: no lesions, no rashes Neurological: cranial nerve grossly intact, normal sensation to touch, no new deficit Musculoskeletal - other findings: Right sided weakness improved from 1 week ago Psychiatric: normal affect, normal behavior Hosp A/P (1) Cerebral parenchymal hemorrhage Code(s): I61.9 - NONTRAUMATIC INTRACEREBRAL HEMORRHAGE, UNSPECIFIED Status: Acute Qualifiers: Cerebral hemorrhage location: cerebral hemisphere, cortical portion Laterality: left (2) Dysphagia Code(s): R13.10 - DYSPHAGIA, UNSPECIFIED Status: Acute Qualifiers: Dysphagia type: oropharyngeal phase Qualified Code(s): R13.12 - Dysphagia, oropharyngeal phase (3) Hemiplegia affecting right dominant side Code(s): G81.91 - HEMIPLEGIA, UNSPECIFIED AFFECTING RIGHT DOMINANT SIDE Status : Acute (4) Mixed aphasia Code(s): R47.01 - APHASIA Status: Acute (5) HTN (hypertension) Code(s): I10 - ESSENTIAL (PRIMARY) HYPERTENSION Status: Chronic Qualifiers: Hypertension type: essential hypertension Qualified Code(s): I10 - Essential (primary) hypertension - Plan Plan: Medical unit with telemetry - stroke unit Neurology consultation, recommendations appreciated Full course of oral ABX finished for e. faecalis UTI patient is medically stable for lower level of care blood pressure control stroke regimen no ASA, antiplatelet, anticoagulation in the setting of bleed continue current plan of care case management consult it to help with placement for this patient long-term prognosis is guarded, though she has shown great improvement with strength on the right side of her body
[2019-06-23] MEDS ORDERED: Mineral Oil ENEMA PR PRN (15:36)
[2019-06-23] MEDS: Lorazepam 0.5 MG TAB PO PRN (15:42)
[2019-06-23] MEDS: Senokot S 8.6-50 MG TAB PO PRN (15:42)
[2019-06-23] MEDS ORDERED: Glycerin Adult Supp. (12 ct jar) RC PRN (15:45)
[2019-06-23] MEDS: Hydrocodone-Acetamin 15 ML UDCUP PO PRN (17:54)
--- NOTE | 2019-06-24 08:14 | PDOC.HOSPP ---
- Subjective Encounter Date: 06/24/19 Encounter Time: 11:30 Subjective: Patient with severe lower abdominal cramps/pain whenever she takes po, reportedly with diarrhea yesterday though not reported how much, had some constipation at first, but reportedly resolved with stool softeners last week, though again no report on how much stool she has passed. No other complaints. - Objective Vital Signs & Weight: Vital Signs (12 hours) Temp Pulse Resp BP BP Pulse Ox 06/24/19 07:50 98.5 F 64 16 118/75 93 L 06/24/19 04:00 98.0 F 67 16 135/81 98 06/24/19 00:06 99.0 F 64 16 125/78 93 L Weight Admit Weight 216 lb 4.375 oz Weight 212 lb 3.2 oz Most Recent Monitor Data Heart Rate from ECG 95 NIBP 138/86 NIBP BP-Mean 103 Respiration from ECG 16 SpO2 94 I&O: 06/23/19 06/24/19 06/25/19 06:59 06:59 06:59 Intake Total 600 744 Balance 600 744 Result Diagrams: 06/18/19 21:59 06/18/19 21:59 Additional Labs: Accuchecks 06/23/19 06/23/19 06/23/19 21:01 17:21 10:49 POC Glucose 121 H 116 H 173 H Hospitalist ROS - Review of Systems Constitutional: denies: fever, chills Eyes: denies: vision change, redness Respiratory: denies: cough, shortness of breath Cardiovascular: denies: chest pain, palpitations Gastrointestinal: reports: abdominal pain, diarrhea. denies: nausea, vomiting Neurological: reports: weakness Other: right sided hemiparesis - Medication Medications: Active Medications Generic Name Dose Route Start Last Admin Trade Name Freq PRN Reason Stop Dose Admin Acetaminophen 650 mg 05/22/19 23:17 06/02/19 23:10 Tylenol [place] 650 mg Q4H PRN Administration Headache/Fever or Pain Acetaminophen 650 mg 06/06/19 05:31 06/23/19 15:42 Tylenol Elixir PO 650 mg Q4H PRN Administration Fever/Mild Pain Hydrocodone Bitart/Acetaminophen 15 ml 06/15/19 21:53 06/23/19 17:54 Hydrocodone-Apap 7.5-325/15 PO 15 ml Q6H PRN Administration Moderate to Severe Pain (6-10) Amiodarone HCl 400 mg 06/08/19 21:00 06/23/19 21:38 Cordarone PO 400 mg BID CRUZ Administration Carvedilol 6.25 mg 06/12/19 17:00 06/23/19 17:45 Coreg PO 6.25 mg BID-WM CRUZ Administration Glycerin 1 each 06/23/19 15:45 06/23/19 15:56 Adult Glycerin RC 1 supp DAILYPRN PRN Administration CONSTIPATION Lorazepam 0.5 mg 06/19/19 12:43 06/23/19 15:42 Ativan PO 0.5 mg TIDPRN PRN Administration Anxiety Polyethylene Glycol 17 gm 06/17/19 02:47 06/18/19 09:58 Miralax PO 17 gm DAILYPRN PRN Administration CONSTIPATION Senna/Docusate Sodium 1 tab 06/12/19 16:57 06/23/19 15:42 Senokot S PO 1 tab BIDPRN PRN Administration Constipation Sodium Chloride 10 ml 05/21/19 21:00 06/23/19 21:38 Flush - Normal Saline IVF Not Given Q12HR CRUZ Sodium Chloride 10 ml 05/21/19 14:16 05/27/19 02:32 Flush - Normal Saline IVF 10 ml PRN PRN Administration Saline Flush - Exam General Appearance: NAD Eye: PERRL ENT: moist mucosa Heart: RRR, no murmur Respiratory: CTAB, no wheezes Gastrointestinal: non-distended, normal bowel sounds, no palpable masses Gastrointestinal - other findings: right lower abd mildly painful to deep palpation, no guarding Neurological - other findings: right sided weakness, right facial droop Psychiatric: normal affect, normal behavior Hosp A/P (1) Cerebral parenchymal hemorrhage Code(s): I61.9 - NONTRAUMATIC INTRACEREBRAL HEMORRHAGE, UNSPECIFIED Status: Acute Qualifiers: Cerebral hemorrhage location: cerebral hemisphere, cortical portion Laterality: left (2) Hemiplegia affecting right dominant side Code(s): G81.91 - HEMIPLEGIA, UNSPECIFIED AFFECTING RIGHT DOMINANT SIDE Status : Acute (3) Dysphagia Code(s): R13.10 - DYSPHAGIA, UNSPECIFIED Status: Acute Qualifiers: Dysphagia type: oropharyngeal phase Qualified Code(s): R13.12 - Dysphagia, oropharyngeal phase Plan: doing better with speech therapy, refusing half of feeds and taking only small bites with ST due to fear of stomach cramping (4) Enterococcus UTI Code(s): N39.0 - URINARY TRACT INFECTION, SITE NOT SPECIFIED; B95.2 - ENTEROCOCCUS THE CAUSE OF DISEASES CLASSIFIED ELSEWHERE Status: Resolved Plan: completed antibiotic course (5) Mild mitral regurgitation Code(s): I34.0 - NONRHEUMATIC MITRAL (VALVE) INSUFFICIENCY Status: Acute (6) Mild tricuspid regurgitation Code(s): I07.1 - RHEUMATIC TRICUSPID INSUFFICIENCY Status: Acute (7) Morbid obesity Code(s): E66.01 - MORBID (SEVERE) OBESITY DUE TO EXCESS CALORIES Status: Acute (8) HTN (hypertension) Code(s): I10 - ESSENTIAL (PRIMARY) HYPERTENSION Status: Chronic Qualifiers: Hypertension type: essential hypertension Qualified Code(s): I10 - Essential (primary) hypertension (9) Abdominal pain Code(s): R10.9 - UNSPECIFIED ABDOMINAL PAIN Status: Acute Qualifiers: Abdominal location: lower abdomen, unspecified Qualified Code(s): R10.30 - Lower abdominal pain, unspecified Plan: relation to po intake makes me concerned about possibility of impaction, patient refusing rectal exam right now, refusing feeds, will start PPI and check abdominal x-ray - Plan plan discussed w/ family, PT/OT, speech therapy checking abd x-ray, will need to continue trying to obtain rectal exam to check for impaction Awaiting rehab placement
[2019-06-24] MEDS: Amiodarone 200 MG TAB PO SCH ×2 (10:00→21:30)
[2019-06-24] MEDS: Carvedilol 6.25 MG TAB PO SCH ×2 (10:00→17:06)
[2019-06-24] MEDS: Acetaminophen 650 MG/20.3 ML UDCUP PO PRN ×3 (10:20→21:30)
--- NOTE | 2019-06-24 14:15 | RAD ---
Abdomen one view: HISTORY: Abdominal pain FINDINGS: The bowel gas pattern is unremarkable. Fecal material is seen in the colon and rectum. There are deg enerative changes and levoscoliosis of the lumbar spine.
[2019-06-24] MEDS: Lorazepam 0.5 MG TAB PO PRN (17:06)
[2019-06-25 04:47] LABS: #Eosinphils 0.2 thou/uL (0.0-0.7); #Lymphocytes 1.9 thou/uL (1.20-3.40); #Monocytes 0.7 thou/uL (0.11-0.59); #Neutrophils 3.3 thou/uL (1.40-6.50); %Basophils 0.4 % (0.0-1.0); %Eosinophils 3.9 % (0.0-10.0); %Lymphocytes 30.2 % (21.0-51.0); %Monocytes 11.9 % (0.0-10.0); %Neutrophils 53.6 % (42.0-75.0); Hemoglobin 11.5 g/dL (12.0-16.0); Mean Corpuscular HGB CONC 32.9 g/dL (32.0-36.0); Mean Corpuscular Hemoglobin 28.3 pg (27.0-31.0); Mean Platelet Volume 6.8 fL (7.4-10.4); Platelet Count 194 thou/uL (130-400); RBC Distribution Width 14.2 % (11.5-14.5); Red Blood Cell (RBC) Count 4.07 mill/uL (4.20-5.40); White Blood Cell (WBC) Count 6.1 thou/uL (4.8-10.8)
[2019-06-25 05:06] LABS: Anion Gap 9 mmol/L (10-20); BUN (Urea Nitrogen) 24 mg/dL (9.8-20.1); Calc. Creatinine Clearance 100 mL/min (70-130); Carbon Dioxide 26 mmol/L (23-31); Chloride 108 mmol/L (98-107); Estimated GFR-MDRD 69; Glucose 99 mg/dL (80-115); Potassium 3.6 mmol/L (3.5-5.1); Sodium 139 mmol/L (136-145)
--- NOTE | 2019-06-25 07:59 | PDOC.HOSPP ---
- Subjective Encounter Date: 06/25/19 Encounter Time: 08:45 Subjective: Patient with persistent distress in lower abdomen with anxiety immediately after all feeds or meds. Uncertain if psych etiology. Checking CT abd/pelvis to make sure no colitis or other pathology. Patient did take more per tube yesterday so if CT neg can likely go to rehab. - Objective Vital Signs & Weight: Vital Signs (12 hours) Temp Pulse Resp BP Pulse Ox 06/25/19 04:00 97.8 F 66 16 115/77 94 L 06/24/19 23:12 98 F 70 16 131/80 95 Weight Admit Weight 216 lb 4.375 oz Weight 212 lb 3.2 oz Most Recent Monitor Data Heart Rate from ECG 95 NIBP 138/86 NIBP BP-Mean 103 Respiration from ECG 16 SpO2 94 I&O: 06/24/19 06/25/19 06/26/19 06:59 06:59 06:59 Intake Total 864 1341 Balance 864 1341 Result Diagrams: 06/25/19 04:36 06/25/19 04:36 Additional Labs: Accuchecks 06/24/19 06/24/19 06/24/19 20:14 16:53 10:47 POC Glucose 130 H 135 H 130 H 06/24/19 05:01 POC Glucose 109 Hospitalist ROS - Review of Systems Respiratory: denies: cough, shortness of breath Cardiovascular: denies: chest pain, palpitations Gastrointestinal: reports: abdominal pain. denies: nausea, vomiting, diarrhea, constipation - Medication Medications: Active Medications Generic Name Dose Route Start Last Admin Trade Name Freq PRN Reason Stop Dose Admin Acetaminophen 650 mg 05/22/19 23:17 06/02/19 23:10 Tylenol [place] 650 mg Q4H PRN Administration Headache/Fever or Pain Acetaminophen 650 mg 06/06/19 05:31 06/24/19 21:30 Tylenol Elixir PO 650 mg Q4H PRN Administration Fever/Mild Pain Hydrocodone Bitart/Acetaminophen 15 ml 06/15/19 21:53 06/23/19 17:54 Hydrocodone-Apap 7.5-325/15 PO 15 ml Q6H PRN Administration Moderate to Severe Pain (6-10) Amiodarone HCl 400 mg 06/08/19 21:00 06/24/19 21:30 Cordarone PO 400 mg BID CRUZ Administration Carvedilol 6.25 mg 06/12/19 17:00 06/24/19 17:06 Coreg PO 6.25 mg BID-WM CRUZ Administration Glycerin 1 each 06/23/19 15:45 06/23/19 15:56 Adult Glycerin RC 1 supp DAILYPRN PRN Administration CONSTIPATION Lorazepam 0.5 mg 06/19/19 12:43 06/24/19 17:06 Ativan PO 0.5 mg TIDPRN PRN Administration Anxiety Pantoprazole Sodium 40 mg 06/24/19 09:00 06/24/19 10:00 Protonix PO 40 mg DAILY CRUZ Administration Polyethylene Glycol 17 gm 06/17/19 02:47 06/18/19 09:58 Miralax PO 17 gm DAILYPRN PRN Administration CONSTIPATION Senna/Docusate Sodium 1 tab 06/12/19 16:57 06/23/19 15:42 Senokot S PO 1 tab BIDPRN PRN Administration Constipation Sodium Chloride 10 ml 05/21/19 21:00 06/24/19 23:40 Flush - Normal Saline IVF Not Given Q12HR CRUZ Sodium Chloride 10 ml 05/21/19 14:16 05/27/19 02:32 Flush - Normal Saline IVF 10 ml PRN PRN Administration Saline Flush - Exam General Appearance: NAD Eye: anicteric sclera ENT: normocephalic atraumatic, moist mucosa Heart: RRR, no murmur, no gallops, no rubs Respiratory: CTAB, no wheezes Gastrointestinal: soft, non-tender, non-distended, normal bowel sounds, no palpable masses, no hepatomegaly, no splenomegaly, no guarding, no rigidity Psychiatric: normal affect, normal behavior Hosp A/P (1) Cerebral parenchymal hemorrhage Code(s): I61.9 - NONTRAUMATIC INTRACEREBRAL HEMORRHAGE, UNSPECIFIED Status: Acute Qualifiers: Cerebral hemorrhage location: cerebral hemisphere, cortical portion Laterality: left (2) Hemiplegia affecting right dominant side Code(s): G81.91 - HEMIPLEGIA, UNSPECIFIED AFFECTING RIGHT DOMINANT SIDE Status : Acute (3) Dysphagia Code(s): R13.10 - DYSPHAGIA, UNSPECIFIED Status: Acute Qualifiers: Dysphagia type: oropharyngeal phase Qualified Code(s): R13.12 - Dysphagia, oropharyngeal phase (4) Enterococcus UTI Code(s): N39.0 - URINARY TRACT INFECTION, SITE NOT SPECIFIED; B95.2 - ENTEROCOCCUS THE CAUSE OF DISEASES CLASSIFIED ELSEWHERE Status: Resolved (5) Mild mitral regurgitation Code(s): I34.0 - NONRHEUMATIC MITRAL (VALVE) INSUFFICIENCY Status: Acute (6) Mild tricuspid regurgitation Code(s): I07.1 - RHEUMATIC TRICUSPID INSUFFICIENCY Status: Acute (7) Morbid obesity Code(s): E66.01 - MORBID (SEVERE) OBESITY DUE TO EXCESS CALORIES Status: Acute (8) HTN (hypertension) Code(s): I10 - ESSENTIAL (PRIMARY) HYPERTENSION Status: Chronic Qualifiers: Hypertension type: essential hypertension Qualified Code(s): I10 - Essential (primary) hypertension (9) Abdominal pain Code(s): R10.9 - UNSPECIFIED ABDOMINAL PAIN Status: Acute Qualifiers: Abdominal location: lower abdomen, unspecified Qualified Code(s): R10.30 - Lower abdominal pain, unspecified Plan: Abd X-ray neg for stool backup and continuing to have daily BM. Patient thinks she may have just been anxious from the sensation of diarrheal BM. Taking tube feeds much better yesterday, but more anxious about them or even single meds causing pain. Check CT abd/pelvis. - Plan likely discharge to [facility] if CT abd/pelvis negative
[2019-06-25] MEDS: Acetaminophen 650 MG/20.3 ML UDCUP PO PRN (09:03)
--- NOTE | 2019-06-25 12:51 | PDOC.EVN ---
Event Note - Event Note Event Note: To Whom it May Concern, Patient Mona Sanabria was admitted to [facility] on 05/21/2019 for an intracranial hemorrhage and remains hospitalized. Her daughter continues to assist with treatment plans and discharge planning to a post acute facility. Please provider her any assistance you can to extend her visa so she can stay in the [place] to help with her mother's care. Sincerely, Sea Burkett M.D.
[2019-06-25] MEDS: Carvedilol 6.25 MG TAB PO SCH ×2 (13:11→16:37)
[2019-06-25] MEDS: Amiodarone 200 MG TAB PO SCH ×2 (13:12→20:03)
[2019-06-25] MEDS ORDERED: predniSONE 50 MG TAB PO SCH (20:00)
[2019-06-25] MEDS ORDERED: Melatonin 3 MG TAB PER TUBE PRN (20:54)
[2019-06-26] MEDS: Acetaminophen 650 MG/20.3 ML UDCUP PO PRN (00:45)
[2019-06-26] MEDS ORDERED: predniSONE 50 MG TAB PO SCH ×2 (02:00→08:00)
[2019-06-26] MEDS: Lorazepam 0.5 MG TAB PO PRN (02:49)
[2019-06-26] MEDS ORDERED: diphenhydrAMINE 50 MG CAP PO PRN (09:09)
[2019-06-26] MEDS: Carvedilol 6.25 MG TAB PO SCH ×2 (09:14→17:01)
[2019-06-26] MEDS: Amiodarone 200 MG TAB PO SCH ×2 (09:15→21:20)
--- NOTE | 2019-06-26 09:16 | PDOC.HOSPP ---
- Subjective Encounter Date: 06/26/19 Encounter Time: 10:00 Subjective: Patient had CT this AM, confirmed rectal impaction. Patient not agreeable to manual disimpaction at this time. Will try laxatives and enema. - Objective Vital Signs & Weight: Vital Signs (12 hours) Temp Pulse Resp BP BP Pulse Ox 06/26/19 07:33 98.3 F 78 16 160/106 H 94 L 06/26/19 04:00 97.8 F 64 16 141/85 H 94 L 06/26/19 00:00 99.4 F 66 16 166/90 H 95 Weight Admit Weight 216 lb 4.375 oz Weight 212 lb 3.2 oz Most Recent Monitor Data Heart Rate from ECG 95 NIBP 138/86 NIBP BP-Mean 103 Respiration from ECG 16 SpO2 94 I&O: 06/25/19 06/26/19 06/27/19 06:59 06:59 06:59 Intake Total 1341 150 Balance 1341 150 Result Diagrams: 06/25/19 04:36 06/25/19 04:36 Additional Labs: Accuchecks 06/26/19 06/25/19 06/25/19 06:15 19:47 16:33 POC Glucose 143 H 110 105 06/25/19 06/25/19 10:26 05:57 POC Glucose 114 H 118 H Hospitalist ROS - Review of Systems Respiratory: denies: cough, shortness of breath Cardiovascular: denies: chest pain, palpitations, orthopnea Gastrointestinal: reports: abdominal pain. denies: nausea, vomiting Neurological: reports: weakness - Medication Medications: Active Medications Generic Name Dose Route Start Last Admin Trade Name Freq PRN Reason Stop Dose Admin Acetaminophen 650 mg 05/22/19 23:17 06/02/19 23:10 Tylenol SC 650 mg Q4H PRN Administration Headache/Fever or Pain Acetaminophen 650 mg 06/06/19 05:31 06/26/19 00:45 Tylenol Elixir PO 650 mg Q4H PRN Administration Fever/Mild Pain Amiodarone HCl 400 mg 06/08/19 21:00 06/25/19 20:03 Cordarone PO 400 mg BID CRUZ Administration Carvedilol 6.25 mg 06/12/19 17:00 06/25/19 16:37 Coreg PO 6.25 mg BID-WM CRUZ Administration Glycerin 1 each 06/23/19 15:45 06/23/19 15:56 Adult Glycerin RC 1 supp DAILYPRN PRN Administration CONSTIPATION Lorazepam 0.5 mg 06/19/19 12:43 06/26/19 02:49 Ativan PO 0.5 mg TIDPRN PRN Administration Anxiety Pantoprazole Sodium 40 mg 06/24/19 09:00 06/25/19 13:12 Protonix PO Not Given DAILY CRUZ Polyethylene Glycol 17 gm 06/17/19 02:47 06/18/19 09:58 Miralax PO 17 gm DAILYPRN PRN Administration CONSTIPATION Senna/Docusate Sodium 1 tab 06/12/19 16:57 06/23/19 15:42 Senokot S PO 1 tab BIDPRN PRN Administration Constipation Sodium Chloride 10 ml 05/21/19 21:00 06/25/19 20:03 Flush - Normal Saline IVF 10 ml Q12HR CRUZ Administration Sodium Chloride 10 ml 05/21/19 14:16 05/27/19 02:32 Flush - Normal Saline IVF 10 ml PRN PRN Administration Saline Flush Hosp A/P (1) Cerebral parenchymal hemorrhage Code(s): I61.9 - NONTRAUMATIC INTRACEREBRAL HEMORRHAGE, UNSPECIFIED Status: Acute Qualifiers: Cerebral hemorrhage location: cerebral hemisphere, cortical portion Laterality: left (2) Hemiplegia affecting right dominant side Code(s): G81.91 - HEMIPLEGIA, UNSPECIFIED AFFECTING RIGHT DOMINANT SIDE Status : Acute (3) Dysphagia Code(s): R13.10 - DYSPHAGIA, UNSPECIFIED Status: Acute Qualifiers: Dysphagia type: oropharyngeal phase Qualified Code(s): R13.12 - Dysphagia, oropharyngeal phase (4) Enterococcus UTI Code(s): N39.0 - URINARY TRACT INFECTION, SITE NOT SPECIFIED; B95.2 - ENTEROCOCCUS THE CAUSE OF DISEASES CLASSIFIED ELSEWHERE Status: Resolved (5) Mild mitral regurgitation Code(s): I34.0 - NONRHEUMATIC MITRAL (VALVE) INSUFFICIENCY Status: Acute (6) Mild tricuspid regurgitation Code(s): I07.1 - RHEUMATIC TRICUSPID INSUFFICIENCY Status: Acute (7) Morbid obesity Code(s): E66.01 - MORBID (SEVERE) OBESITY DUE TO EXCESS CALORIES Status: Acute (8) HTN (hypertension) Code(s): I10 - ESSENTIAL (PRIMARY) HYPERTENSION Status: Chronic Qualifiers: Hypertension type: essential hypertension Qualified Code(s): I10 - Essential (primary) hypertension (9) Abdominal pain Code(s): R10.9 - UNSPECIFIED ABDOMINAL PAIN Status: Acute Qualifiers: Abdominal location: lower abdomen, unspecified Qualified Code(s): R10.30 - Lower abdominal pain, unspecified Plan: plan for CT abd today, MBS - Plan PT/OT, speech therapy likely discharge to [facility] once get bowel regimen established
[2019-06-26] MEDS ORDERED: Hyoscyamine Sulfate 0.125 MG/5 ML UDCUP PO PRN (09:18)
--- NOTE | 2019-06-26 12:48 | CT ---
CT ABDOMEN AND PELVIS WITH INTRAVENOUS CONTRAST: HISTORY: Patient with lower abdominal pain. History of breast cancer. Allergy to contrast for which the patien t was pre-medicated. FINDINGS: ABDOMEN: There are bibasilar atelectatic lung changes seen. The liver and spleen show no focal abnorm alities. The pancreas region is unremarkable and the gallbladder is also unremarkable in appearance. The right and left adrenal glands and the right and left kidneys are normal in size. There is no sign ificant periaortic or mesenteric adenopathy appreciated. A gastrostomy tube is noted. PELVIS: The bladder is distended. There is a cystic appearing lesion involving the right ovary. It me asures approximately 5.8 cm in size. It has a small focus of peripheral calcification noted. This nee ds to be investigated further with ultrasound. The appendix is difficult to definitely identify but I see no inflammatory change. There is a small fat-containing paraumbilical hernia. There is evidence of a fecal impaction. There is presacral edema change noted, which could be on the basis of the impaction. The colon wall does not appear thickened. No fluid collections are noted. IMPRESSION: 1. Bibasilar atelectasis. 2. A 5.8 cm cystic appearing lesion involving the right ovary. There is a dense calcification along t he peripheral margin of this. This needs to be investigated further with ultrasound to determine the true cystic nature of this. 3. Evidence for a fecal impaction. There is also some presacral soft tissue edema change associated w ith this. POS: TPC
--- NOTE | 2019-06-26 12:51 | PDOC.EVN ---
Event Note - Event Note Event Note: To Whom if May Concern, Patient Ramo Goodrich was admitted to [facility] on 05/21/2019 for an intracranial hemorrhage and remains hospitalized. Her daughter, Arvind Kenyon, continues to assist with treatment plans and discharge planning to a post acute facility. Please provide her any assistance you can to extend her visa so she can stay in the [place] to help with her mother's care. Sincerely, Sea Burkett M.D.
[2019-06-26] MEDS ORDERED: Polyethylene Glycol 3350 17 GM Packet PER TUBE SCH (13:00)
[2019-06-26] MEDS ORDERED: Fleet Enema 133 ML BOT PR SCH (13:00)
[2019-06-26] MEDS ORDERED: Senokot S 8.6-50 MG TAB PO SCH (13:00)
[2019-06-26 13:22] LABS: Bilirubin Negative (Negative); Blood, Urine Negative (Negative); Clarity Clear (Clear); Glucose, Urine (Dipstick) Normal (Negative); Leukocyte Negative Leu/uL (Negative); Nitrite Negative (Negative); Protein, Urine (Dipstick) Negative (Neg-Trace); Urobilinogen Normal mg/dL (Less than 2)
--- NOTE | 2019-06-26 14:19 | RAD ---
EXAM: XR Ba Swallow W/Speech Therap PROVIDED CLINICAL HISTORY: Dysphagia following cerebral infarction. Feeding difficulties. COMPARISON: None FINDINGS: This examination was performed in conjunction with speech pathology. Patient was administered varying consistencies of barium. Patient demonstrates premature spill of contrast with mild pooling in the vallecula prior to initiation of the swallowing mechanism. Deep penetration was noted with thin liqui d barium. No aspiration was demonstrated during the exam. Fluoroscopy: Time-1.3 minutes Dose-0.651 Gy centimeter squared IMPRESSION: Episode of deep penetration with thin liquid barium. No klaus aspiration was demonstrated during the exam.
[2019-06-26] MEDS: Senokot S 8.6-50 MG TAB PO SCH (21:31)
--- NOTE | 2019-06-27 08:01 | PDOC.HOSPP ---
- Subjective Encounter Date: 06/27/19 Encounter Time: 10:45 Subjective: No events overnight. Patient had 4 massive bowel movements yesterday. No further stomach pain complaints. - Objective Vital Signs & Weight: Vital Signs (12 hours) Temp Pulse Resp BP Pulse Ox 06/27/19 03:52 98.4 F 62 16 105/71 94 L 06/26/19 23:42 97.6 F 68 16 108/75 93 L Weight Admit Weight 216 lb 4.375 oz Weight 212 lb 3.2 oz Most Recent Monitor Data Heart Rate from ECG 95 NIBP 138/86 NIBP BP-Mean 103 Respiration from ECG 16 SpO2 94 I&O: 06/26/19 06/27/19 06/28/19 06:59 06:59 06:59 Intake Total 150 860 Balance 150 860 Result Diagrams: 06/25/19 04:36 06/25/19 04:36 Additional Labs: Accuchecks 06/27/19 06/26/19 06/26/19 06:01 19:56 16:42 POC Glucose 126 H 215 H 138 H 06/26/19 06/26/19 11:51 06:15 POC Glucose 131 H 143 H Hospitalist ROS - Review of Systems Respiratory: denies: cough, shortness of breath Cardiovascular: denies: chest pain Gastrointestinal: reports: diarrhea. denies: nausea, vomiting, abdominal pain - Medication Medications: Active Medications Generic Name Dose Route Start Last Admin Trade Name Freq PRN Reason Stop Dose Admin Acetaminophen 650 mg 05/22/19 23:17 06/02/19 23:10 Tylenol [place] 650 mg Q4H PRN Administration Headache/Fever or Pain Acetaminophen 650 mg 06/06/19 05:31 06/26/19 00:45 Tylenol Elixir PO 650 mg Q4H PRN Administration Fever/Mild Pain Amiodarone HCl 400 mg 06/08/19 21:00 06/26/19 21:20 Cordarone PO 400 mg BID CRUZ Administration Carvedilol 6.25 mg 06/12/19 17:00 06/26/19 17:01 Coreg PO 6.25 mg BID-WM CRUZ Administration Glycerin 1 each 06/23/19 15:45 06/23/19 15:56 Adult Glycerin RC 1 supp DAILYPRN PRN Administration CONSTIPATION Lorazepam 0.5 mg 06/19/19 12:43 06/26/19 02:49 Ativan PO 0.5 mg TIDPRN PRN Administration Anxiety Pantoprazole Sodium 40 mg 06/24/19 09:00 06/26/19 09:14 Protonix PO 40 mg DAILY CRUZ Administration Senna/Docusate Sodium 1 tab 06/26/19 21:00 06/26/19 21:31 Senokot S PO Not Given BID CRUZ Sodium Chloride 10 ml 05/21/19 21:00 06/26/19 21:20 Flush - Normal Saline IVF 10 ml Q12HR CRUZ Administration Sodium Chloride 10 ml 05/21/19 14:16 05/27/19 02:32 Flush - Normal Saline IVF 10 ml PRN PRN Administration Saline Flush - Exam General Appearance: NAD Eye: anicteric sclera ENT: moist mucosa Heart: RRR, no murmur, no gallops, no rubs Respiratory: CTAB, no wheezes, no rales Gastrointestinal: soft, non-tender, non-distended Neurological - other findings: right arm paralysis Psychiatric: normal affect, normal behavior Hosp A/P (1) Cerebral parenchymal hemorrhage Code(s): I61.9 - NONTRAUMATIC INTRACEREBRAL HEMORRHAGE, UNSPECIFIED Status: Acute Qualifiers: Cerebral hemorrhage location: cerebral hemisphere, cortical portion Laterality: left (2) Hemiplegia affecting right dominant side Code(s): G81.91 - HEMIPLEGIA, UNSPECIFIED AFFECTING RIGHT DOMINANT SIDE Status : Acute (3) Dysphagia Code(s): R13.10 - DYSPHAGIA, UNSPECIFIED Status: Acute Qualifiers: Dysphagia type: oropharyngeal phase Qualified Code(s): R13.12 - Dysphagia, oropharyngeal phase (4) Enterococcus UTI Code(s): N39.0 - URINARY TRACT INFECTION, SITE NOT SPECIFIED; B95.2 - ENTEROCOCCUS THE CAUSE OF DISEASES CLASSIFIED ELSEWHERE Status: Resolved (5) Mild mitral regurgitation Code(s): I34.0 - NONRHEUMATIC MITRAL (VALVE) INSUFFICIENCY Status: Acute (6) Mild tricuspid regurgitation Code(s): I07.1 - RHEUMATIC TRICUSPID INSUFFICIENCY Status: Acute (7) Morbid obesity Code(s): E66.01 - MORBID (SEVERE) OBESITY DUE TO EXCESS CALORIES Status: Acute (8) HTN (hypertension) Code(s): I10 - ESSENTIAL (PRIMARY) HYPERTENSION Status: Chronic Qualifiers: Hypertension type: essential hypertension Qualified Code(s): I10 - Essential (primary) hypertension (9) Abdominal pain Code(s): R10.9 - UNSPECIFIED ABDOMINAL PAIN Status: Acute Qualifiers: Abdominal location: lower abdomen, unspecified Qualified Code(s): R10.30 - Lower abdominal pain, unspecified - Plan PT/OT, speech therapy will discharge to [facility] today, continue Miralax daily but other laxatives only as needed
[2019-06-27] MEDS ORDERED: Polyethylene Glycol 3350 17 GM Packet PER TUBE SCH (09:00)
[2019-06-27] MEDS: Amiodarone 200 MG TAB PO SCH (10:48)
[2019-06-27] MEDS: Carvedilol 6.25 MG TAB PO SCH (10:48)
[2019-06-27] MEDS: Senokot S 8.6-50 MG TAB PO SCH (10:48)
[2019-06-27] MEDS ORDERED: Senokot S 8.6-50 MG TAB PO PRN (14:25)
[2019-06-27 16:16] VITALS: BP 139/91; TEMP 98.2
--- NOTE | 2019-06-28 04:38 | PQF ---
[employer] House Supervisor Crystal Reports Winform ViewerJOHN FUNES RYAN ANDREW MD [id number] CLINICAL DOCUMENTATION CLARIFICATION FORM: POST DISCHARGE Addendum to original discharge summary date: ____ Late entry note date: __ DATE: 06/28/2019 ATTN:SAVANA RG MD Please exercise your independent, professional judgment in responding to the clarification form. Clinical indicators are provided on the bottom of this form for your review Please check appropriate box(s): [ ] Acute Respiratory Failure: [ ] with Hypoxia[ ] with Hypercapnia [ ] Acute On Chronic Respiratory Failure: [ ] with Hypoxia [ ] with Hypercapnia [ ] Acute Respiratory Failure due to: (etiology) [ ] ARDS (Acute Respiratory Distress Syndrome) [ ] Chronic Respiratory Failure only [ ] with Hypoxia [ ] with Hypercapnia [ ] Hypoxia [ X ] Other diagnosis _No respiratory distress during this hospitalization ____ [ ] Unable to determine In addition, please specify: Present on Admission (POA): [ ] Yes [ ] No [ X ] Unable to determine For continuity of documentation, please document condition throughout progress notes and discharge summary. Thank You. CLINICAL INDICATORS - SIGNS / SYMPTOMS / LABS Respiratory failure - Documented in PNs on 05/26 by Jae Lambert MD Respiration rate 22 on 05/21 and 24 on 06/03 - Documented in Vital Signs O2 saturation 84 on 06/09 - Documented in Vital Signs RISK FACTORS Intracranial Hemorrhage HTN Emergency TREATMENTS: Continue supportive care O2 delivery Nasal Cannula [employer] House Supervisor Crystal Reports Winform Viewer (This form is maintained as a part of the permanent medical record) 2014 [employer]. All Rights Reserved [email or web address] [not provided] MTDD
--- NOTE | 2019-06-28 11:11 | PDOC.EVN ---
Event Note - Event Note Event Note: Called Dr. Ku about switching patient's Amiodarone to 200mg daily as per cardiology plan and f/u with Dr. Dixon in 2 weeks.
--- NOTE | 2019-06-28 12:12 | DIS ---
DATE OF ADMISSION: 05/21/2019 DATE OF DISCHARGE: 06/27/2019 PRIMARY CARE PHYSICIAN: Noe Whyte. REASON FOR ADMISSION: Intracranial hemorrhage. DIAGNOSES AT DISCHARGE: 1. Cerebral parenchymal hemorrhage, left-sided. 2. Hemiplegia affecting the right dominant side. 3. Dysphagia. 4. Nonsustained ventricular tachycardia, resolved, on amiodarone. 5. Enterococcus urinary tract infection, resolved. 6. Mild mitral regurgitation. 7. Mild tricuspid regurgitation. 8. Morbid obesity. 9. Hypertension. 10. Fecal impaction, resolved. PROCEDURES PERFORMED: 1. CT scan of the brain showing intra-axial hyperdense mass in the left, suggestive of hemorrhage with associated vasogenic edema. 2. MRI of the brain showing a 2.9 x 5.5 x 2.9 cm left-sided intra-axial lesion with significant blooming artifact consistent with a hemorrhagic lesion, unlikely to be a mass. 3. Modified barium swallow initially showing premature spillage and pooling in the valleculae with all consistencies. Repeat modified barium swallow just prior to discharge showing an episode of deep penetration with thin liquid barium, but no klaus aspiration demonstrated during the exam and doing much better with thicker consistencies. 4. Ultrasound of the right upper extremity showing no evidence for thrombus. 5. Echocardiogram showing left ventricular ejection fraction of 55% to 60% and mild mitral regurgitation. 6. Percutaneous endoscopic gastrostomy tube placement. 7. Ventilation/perfusion scan showing no evidence for pulmonary embolism. 8. CT scan of the abdomen and pelvis with IV contrast showing a 5.8 cm cystic lesion involving the right ovary and evidence for fecal impaction with some presacral soft tissue edema changes. 9. X-rays of the right shoulder, right forearm, and right hip negative for fracture. 10. Abdominal x-ray negative for abnormalities. CONSULTATIONS: 1. Neurosurgery, Magan Smith. 2. Pulmonology, Dr. Bay. 3. Palliative Care. 4. General Surgery, Dr. Deal. 5. Cardiology, Dr. Dixon. SUMMARY OF HOSPITAL COURSE: This is a 68-year-old [place] female, who was visiting her daughter in the Oncology Department, her daughter has cancer. The patient had a syncopal episode and was brought to the emergency room. CT scan showed intracranial hemorrhage as above. The patient was admitted to the ICU. Her blood pressure was controlled. Neurosurgery and Pulmonology were consulted. The patient had slow, prolonged course in the hospital. She initially had some aphasia. Her speaking did improve per her family. She continued to have a significant weakness on the right side, especially right upper extremity. She was able to stand some, but did have some hypotension and a fall during her hospitalization. The patient had dysphagia and was initially unable to swallow anything safely, so she had a PEG tube placed. Her hospital course was complicated by a run of nonsustained ventricular tachycardia, for which Dr. Dixon was consulted and put her on amiodarone. She had no further problems with that and does need a 2-week followup with Dr. Dixon. She has an episode of respiratory distress. It was eventually determined to be a panic attack. She never had any respiratory failure though. She had a negative V/Q scan at that time. The patient did start having some lower abdominal pain after all feeds and was refusing feeds for a while. This was determined to be a fecal impaction, that was relieved with laxatives, stool softeners, and enemas, at which point, the pain resolved. She was taking the food well through the PEG tube and did much better on her second modified barium swallow, so was starting to take oral foods as well. At the time of discharge, she was discharged to [facility] under Dr. Ku. DISCHARGE MANAGEMENT: Discharged to [facility] facility at [facility]. ACTIVITY: As tolerated. DIET: Healthy-heart diet with nectar-thick liquids, small sips by cups, no straws in texture, puree with extra sauce and gravy along with tube feeds of 1.5 cans full-strength feeds by bolus 3 times a day if not taking adequate oral food. THERAPY: Occupational, Physical, and Speech Therapy. EQUIPMENT/SUPPLIES: PEG tube. FOLLOWUP: Follow up with primary care physician after out of [facility] facility. She also needs to see Dr. Dixon in 2 weeks. DISCHARGE MEDICATIONS: 1. Acetaminophen as needed. 2. Amiodarone 400 mg twice a day, which needs an obvious switch to 200 mg daily. 3. Carvedilol 6.25 mg twice a day. 4. Glycerin suppository as needed. 5. Levsin 0.125 mg every 4 hours as needed. 6. Lorazepam 0.5 mg 3 times a day as needed. 7. Melatonin 3 mg per tube at night as needed. 8. Fleet mineral oil 133 mL per rectum daily as needed. 9. MiraLAX 17 g daily. 10. Senokot-S 1 tablet twice a day. Job ID: [id number]
== END 2019-06-27 16:25 | DRG 64 ==
LOC: EDBD 09:53 → ERS 09:53 → CCU 12:09 → IMCU/EMU 05-24 18:27 → 2SE 06-05 23:04
PROVIDERS: ADMIT Internal Medicine; ATTEND Internal Medicine
PROC: 0DH63UZ Insertion of Feeding Device into Stomach, Percutaneous Approach (ICD-10-PCS; principal; 2019-05-30)
DX: I62.9 Nontraumatic intracranial hemorrhage, unspecified (principal); G93.6 Cerebral edema; I16.1 Hypertensive emergency; G81.91 Hemiplegia, unspecified affecting right dominant side; N39.0 Urinary tract infection, site not specified; G93.40 Encephalopathy, unspecified; I47.2 Ventricular tachycardia; E46 Unspecified protein-calorie malnutrition; I10 Essential (primary) hypertension; M19.91 Primary osteoarthritis, unspecified site; Z91.14 Patient's other noncompliance with medication regimen; D72.819 Decreased white blood cell count, unspecified; E78.5 Hyperlipidemia, unspecified; R47.01 Aphasia; D72.829 Elevated white blood cell count, unspecified; E66.01 Morbid (severe) obesity due to excess calories; Z68.38 Body mass index [BMI] 38.0-38.9, adult; I34.0 Nonrheumatic mitral (valve) insufficiency; Z51.5 Encounter for palliative care; E87.6 Hypokalemia; R13.10 Dysphagia, unspecified; B95.2 Enterococcus as the cause of diseases classified elsewhere; I07.1 Rheumatic tricuspid insufficiency; R33.9 Retention of urine, unspecified; R31.9 Hematuria, unspecified; I95.9 Hypotension, unspecified
CPT/HCPCS: 36415; 36416; 70450; 70553; 71045; 74018; 74177; 74230; 78582; 80048; 80053; 81001; 81003; 81015; 83605; 83735; 84100; 84484; 85025; 85027; 85610; 85730; 87040; 87077; 87086; 87186; 93005; 93010; 93306; 96365; 96366; A4353; A9540; A9558; A9579; J0131; J0360; J0690; J2060; J2270; J2704; J3480; J7050; J7512; Q0163; S0028

== ENCOUNTER 2020-10-13 17:17 | Emergency (ER) | payer MEDICAID, OTHER, SELFPAY ==
[2020-10-13 18:04] LABS: #Eosinphils 0.1 thou/uL (0.0-0.7); #Lymphocytes 2.1 thou/uL (1.20-3.40); #Monocytes 0.7 thou/uL (0.11-0.59); #Neutrophils 2.9 thou/uL (1.40-6.50); %Basophils 0.3 % (0.0-1.0); %Eosinophils 1.3 % (0.0-10.0); %Lymphocytes 36.1 % (21.0-51.0); %Monocytes 12.6 % (0.0-10.0); %Neutrophils 49.7 % (42.0-75.0); Hemoglobin 12.9 g/dL (12.0-16.0); Mean Corpuscular Hemoglobin 28.6 pg (27.0-31.0); Mean Corpuscular Volume 86.7 fL (78.0-98.0); Mean Platelet Volume 7.6 fL (7.4-10.4); Platelet Count 172 thou/uL (130-400); RBC Distribution Width 11.9 % (11.5-14.5); Red Blood Cell (RBC) Count 4.52 mill/uL (4.20-5.40); White Blood Cell (WBC) Count 5.8 thou/uL (4.8-10.8)
[2020-10-13 18:30] LABS: ALT (SGPT) Less than 7 U/L (8-55); AST (SGOT) 16 U/L (5-34); Albumin 4.1 g/dL (3.4-4.8); Alkaline Phosphatase 69 U/L (40-110); Anion Gap 12 mmol/L (10-20); BUN (Urea Nitrogen) 23 mg/dL (9.8-20.1); Bilirubin, Total 0.4 mg/dL (0.2-1.2); Calc. Creatinine Clearance 0 mL/min (70-130); Calcium 9.8 mg/dL (7.8-10.44); Carbon Dioxide 26 mmol/L (23-31); Chloride 108 mmol/L (98-107); Globulin 2.9 g/dL (2.4-3.5); Glucose 103 mg/dL (80-115); Potassium 5.2 mmol/L (3.5-5.1); Sodium 141 mmol/L (136-145)
[2020-10-13] MEDS ORDERED: Nitroglycerin 2% Ointment 1 INCH/1 GM Packet ONE (18:57)
[2020-10-13] MEDS ORDERED: Aspirin 325 MG TAB ONE (18:57)
== END 2020-10-13 19:45 | disposition left against medical advice (07) ==
LOC: ERS 17:17
DX: R00.2 Palpitations (principal); I10 Essential (primary) hypertension; M19.90 Unspecified osteoarthritis, unspecified site; Z79.82 Long term (current) use of aspirin; Z79.899 Other long term (current) drug therapy
CPT/HCPCS: 36415; 80053; 83880; 84484; 85025; 93005

== ENCOUNTER 2020-10-14 13:21 | Inpatient (IN) | payer MEDICAID, OTHER, SELFPAY ==
[~2020-10-14 13:21] MED LIST: Iopamidol-370 76% 500 ML 1 ML ONE
[2020-10-14 13:58] LABS: #Basophils 0.1 thou/uL (0.0-0.2); #Eosinphils 0.1 thou/uL (0.0-0.7); #Lymphocytes 1.8 thou/uL (1.20-3.40); #Monocytes 0.7 thou/uL (0.11-0.59); #Neutrophils 2.6 thou/uL (1.40-6.50); %Basophils 1.1 % (0.0-1.0); %Eosinophils 1.8 % (0.0-10.0); %Lymphocytes 34.4 % (21.0-51.0); %Monocytes 12.8 % (0.0-10.0); %Neutrophils 49.9 % (42.0-75.0); Hemoglobin 12.7 g/dL (12.0-16.0); Mean Corpuscular HGB CONC 33.2 g/dL (32.0-36.0); Mean Corpuscular Hemoglobin 28.9 pg (27.0-31.0); Mean Corpuscular Volume 86.9 fL (78.0-98.0); Mean Platelet Volume 7.5 fL (7.4-10.4); Platelet Count 183 thou/uL (130-400); RBC Distribution Width 12.1 % (11.5-14.5); Red Blood Cell (RBC) Count 4.39 mill/uL (4.20-5.40); White Blood Cell (WBC) Count 5.2 thou/uL (4.8-10.8)
[2020-10-14 14:22] LABS: ALT (SGPT) Less than 7 U/L (8-55); AST (SGOT) 19 U/L (5-34); Albumin 4.1 g/dL (3.4-4.8); Alkaline Phosphatase 69 U/L (40-110); Anion Gap 15 mmol/L (10-20); BUN (Urea Nitrogen) 21 mg/dL (9.8-20.1); Bilirubin, Total 0.4 mg/dL (0.2-1.2); Calc. Creatinine Clearance 0 mL/min (70-130); Calcium 9.4 mg/dL (7.8-10.44); Carbon Dioxide 25 mmol/L (23-31); Chloride 104 mmol/L (98-107); Globulin 2.8 g/dL (2.4-3.5); Glucose 100 mg/dL (80-115); Potassium 4.2 mmol/L (3.5-5.1); Protein, Total 6.9 g/dL (5.8-8.1); Sodium 140 mmol/L (136-145)
[2020-10-14] MEDS ORDERED: Aspirin Chewable 81 MG TAB ONE (16:22)
[2020-10-14] MEDS ORDERED: Acetaminophen 325 MG TAB PO PRN (19:01)
[2020-10-14] MEDS ORDERED: Acetaminophen 650 MG Suppository PR PRN (19:01)
[2020-10-14 20:06] LABS: Troponin I 0.011 ng/mL (< 0.028)
[2020-10-14 20:06] LABS: SARS-CoV-2 NAA Rapid Test Not Detected (NotDetected)
[2020-10-14 21:30] VITALS: BMI 32.1
[2020-10-14] MEDS ORDERED: Magnesium 2 GM/50 ML 2 GM in Premix Bag 1 BAG IVPB SCH (22:00)
[2020-10-14] MEDS ORDERED: Metoprolol Tartrate 5 MG/5 ML VIAL IVP SCH (23:15)
[2020-10-15 04:57] LABS: #Eosinphils 0.1 thou/uL (0.0-0.7); #Lymphocytes 1.9 thou/uL (1.20-3.40); #Monocytes 0.7 thou/uL (0.11-0.59); #Neutrophils 2.5 thou/uL (1.40-6.50); %Basophils 0.3 % (0.0-1.0); %Eosinophils 2.2 % (0.0-10.0); %Lymphocytes 35.9 % (21.0-51.0); %Monocytes 13.2 % (0.0-10.0); %Neutrophils 48.4 % (42.0-75.0); Hemoglobin 11.8 g/dL (12.0-16.0); Mean Corpuscular HGB CONC 34.2 g/dL (32.0-36.0); Mean Corpuscular Hemoglobin 29.7 pg (27.0-31.0); Mean Corpuscular Volume 86.9 fL (78.0-98.0); Mean Platelet Volume 7.7 fL (7.4-10.4); Platelet Count 156 thou/uL (130-400); Red Blood Cell (RBC) Count 3.99 mill/uL (4.20-5.40); White Blood Cell (WBC) Count 5.2 thou/uL (4.8-10.8)
[2020-10-15 05:19] LABS: Anion Gap 13 mmol/L (10-20); BUN (Urea Nitrogen) 20 mg/dL (9.8-20.1); Calc. Creatinine Clearance 73 mL/min (70-130); Carbon Dioxide 25 mmol/L (23-31); Chloride 107 mmol/L (98-107); Glucose 97 mg/dL (80-115); Magnesium 2.4 mg/dL (1.6-2.6); Potassium 4.6 mmol/L (3.5-5.1); Sodium 140 mmol/L (136-145)
[2020-10-15 13:01] LABS: Free T4 (Free Thyroxine) 1.06 ng/dL (0.70-1.48); Thyroid Stimulating Hormone 1.2245 uIU/mL (0.35-4.94)
[2020-10-15] MEDS: Diltiazem 125 MG in Sodium Chloride 0.9% 100 ML IVPB SCH (17:54)
[2020-10-16] MEDS ORDERED: PROPOFOL 200 MG/20 ML VIAL ONE (08:34)
[2020-10-16] MEDS ORDERED: Melatonin 3 MG TAB PER TUBE PRN (12:45)
[2020-10-16] MEDS ORDERED: Senokot S 8.6-50 MG TAB PO PRN (12:45)
[2020-10-16] MEDS: Diltiazem 125 MG in Sodium Chloride 0.9% 100 ML IVPB SCH (17:17)
[2020-10-16] MEDS: Lisinopril/Hydrochlorothiazide 20 mg/12.5 mg Tablet PO SCH (20:33)
[2020-10-16] MEDS: Sotalol HCl 80 MG TAB PO SCH (20:34)
[2020-10-16] MEDS: Simvastatin 10 MG TAB PO SCH (20:35)
[2020-10-17] MEDS ORDERED: diphenhydrAMINE 50 MG/ML VIAL IVP SCH (00:30)
[2020-10-17 04:52] LABS: #Eosinphils 0.1 thou/uL (0.0-0.7); #Lymphocytes 1.8 thou/uL (1.20-3.40); #Monocytes 0.7 thou/uL (0.11-0.59); #Neutrophils 2.2 thou/uL (1.40-6.50); %Basophils 0.6 % (0.0-1.0); %Eosinophils 2.1 % (0.0-10.0); %Lymphocytes 36.7 % (21.0-51.0); %Monocytes 14.8 % (0.0-10.0); %Neutrophils 45.7 % (42.0-75.0); Hemoglobin 11.5 g/dL (12.0-16.0); Mean Corpuscular HGB CONC 33.1 g/dL (32.0-36.0); Mean Corpuscular Hemoglobin 28.8 pg (27.0-31.0); Mean Corpuscular Volume 86.9 fL (78.0-98.0); Mean Platelet Volume 7.7 fL (7.4-10.4); Platelet Count 146 thou/uL (130-400); RBC Distribution Width 12.1 % (11.5-14.5); White Blood Cell (WBC) Count 4.8 thou/uL (4.8-10.8)
[2020-10-17 05:12] LABS: Anion Gap 14 mmol/L (10-20); BUN (Urea Nitrogen) 20 mg/dL (9.8-20.1); Calc. Creatinine Clearance 81 mL/min (70-130); Calcium 8.7 mg/dL (7.8-10.44); Carbon Dioxide 19 mmol/L (23-31); Chloride 111 mmol/L (98-107); Glucose 94 mg/dL (80-115); Magnesium 2.1 mg/dL (1.6-2.6); Potassium 3.7 mmol/L (3.5-5.1); Sodium 140 mmol/L (136-145)
[2020-10-17] MEDS: Lisinopril/Hydrochlorothiazide 20 mg/12.5 mg Tablet PO SCH ×2 (08:55→20:32)
[2020-10-17] MEDS: Polyethylene Glycol 3350 17 GM Packet PER TUBE SCH (08:55)
[2020-10-17] MEDS: Sotalol HCl 80 MG TAB PO SCH ×2 (09:39→21:58)
[2020-10-17] MEDS ORDERED: Sotalol HCl 80 MG TAB PO SCH (11:30)
[2020-10-17] MEDS ORDERED: Potassium Chloride 20 MEQ TAB PO SCH (11:45)
[2020-10-17] MEDS: Diltiazem 125 MG in Sodium Chloride 0.9% 100 ML IVPB SCH (18:41)
[2020-10-17] MEDS: Simvastatin 10 MG TAB PO SCH (20:35)
[2020-10-17] MEDS ORDERED: Sodium Chloride 0.9% 500 ML IVPB SCH (21:00)
[2020-10-18 04:32] LABS: #Eosinphils 0.1 thou/uL (0.0-0.7); #Lymphocytes 1.9 thou/uL (1.20-3.40); #Monocytes 0.6 thou/uL (0.11-0.59); #Neutrophils 2.2 thou/uL (1.40-6.50); %Basophils 0.6 % (0.0-1.0); %Eosinophils 2.7 % (0.0-10.0); %Lymphocytes 39.8 % (21.0-51.0); %Monocytes 11.3 % (0.0-10.0); %Neutrophils 45.7 % (42.0-75.0); Hemoglobin 11.1 g/dL (12.0-16.0); Mean Corpuscular HGB CONC 33.5 g/dL (32.0-36.0); Mean Corpuscular Hemoglobin 29.3 pg (27.0-31.0); Mean Corpuscular Volume 87.5 fL (78.0-98.0); Mean Platelet Volume 7.5 fL (7.4-10.4); Platelet Count 148 thou/uL (130-400); White Blood Cell (WBC) Count 4.8 thou/uL (4.8-10.8)
[2020-10-18 04:54] LABS: Anion Gap 11 mmol/L (10-20); BUN (Urea Nitrogen) 19 mg/dL (9.8-20.1); Calc. Creatinine Clearance 79 mL/min (70-130); Calcium 8.7 mg/dL (7.8-10.44); Carbon Dioxide 21 mmol/L (23-31); Chloride 113 mmol/L (98-107); Glucose 91 mg/dL (80-115); Magnesium 2.1 mg/dL (1.6-2.6); Potassium 3.9 mmol/L (3.5-5.1); Sodium 141 mmol/L (136-145)
[2020-10-18] MEDS: Polyethylene Glycol 3350 17 GM Packet PER TUBE SCH (10:25)
[2020-10-18] MEDS: Sotalol HCl 80 MG TAB PO SCH ×2 (10:30→20:40)
[2020-10-18] MEDS: Simvastatin 10 MG TAB PO SCH (20:41)
[2020-10-19 04:56] LABS: #Eosinphils 0.1 thou/uL (0.0-0.7); #Lymphocytes 1.7 thou/uL (1.20-3.40); #Monocytes 0.7 thou/uL (0.11-0.59); #Neutrophils 2.9 thou/uL (1.40-6.50); %Basophils 0.4 % (0.0-1.0); %Eosinophils 2.4 % (0.0-10.0); %Lymphocytes 31.4 % (21.0-51.0); %Neutrophils 52.7 % (42.0-75.0); Hemoglobin 10.8 g/dL (12.0-16.0); Mean Corpuscular HGB CONC 33.3 g/dL (32.0-36.0); Mean Corpuscular Hemoglobin 29.1 pg (27.0-31.0); Mean Corpuscular Volume 87.4 fL (78.0-98.0); Mean Platelet Volume 7.7 fL (7.4-10.4); Platelet Count 143 thou/uL (130-400); Red Blood Cell (RBC) Count 3.71 mill/uL (4.20-5.40); White Blood Cell (WBC) Count 5.4 thou/uL (4.8-10.8)
[2020-10-19 05:31] LABS: Anion Gap 11 mmol/L (10-20); BUN (Urea Nitrogen) 17 mg/dL (9.8-20.1); Calc. Creatinine Clearance 72 mL/min (70-130); Calcium 8.6 mg/dL (7.8-10.44); Carbon Dioxide 22 mmol/L (23-31); Chloride 110 mmol/L (98-107); Glucose 94 mg/dL (80-115); Potassium 3.8 mmol/L (3.5-5.1); Sodium 139 mmol/L (136-145)
[2020-10-19] MEDS: Polyethylene Glycol 3350 17 GM Packet PER TUBE SCH (10:19)
[2020-10-19] MEDS ORDERED: Heparin 10,000 UNITS/ 10 ML VIAL ONE (13:38)
[2020-10-19] MEDS ORDERED: Meperidine HCl/PF 25 MG/ML VIAL ONE (13:39)
[2020-10-19] MEDS ORDERED: Midazolam HCl 2 mg/2 ml Vial ONE (13:39)
[2020-10-19] MEDS ORDERED: Propofol 1,000 MG/100 ML VIAL IV ONE (13:40)
[2020-10-19] MEDS ORDERED: Lidocaine 1% (PF) 30 ML VIAL ONE (13:41)
[2020-10-19] MEDS ORDERED: hydrALAZINE 20 MG/ML VIAL SLOW IVP PRN (19:25)
[2020-10-19] MEDS ORDERED: HYDROcodone/Acetaminophen 5/325 mg Tablet PO PRN ×2 (20:15)
[2020-10-19] MEDS: Simvastatin 10 MG TAB PO SCH (21:10)
[2020-10-19] MEDS: Sotalol HCl 80 MG TAB PO SCH (21:10)
[2020-10-20] MEDS: Polyethylene Glycol 3350 17 GM Packet PER TUBE SCH (07:57)
[2020-10-20] MEDS: Sotalol HCl 80 MG TAB PO SCH (07:57)
[2020-10-20] MEDS ORDERED: Carvedilol 6.25 MG TAB PO SCH ×2 (09:15→17:00)
[2020-10-20] MEDS ORDERED: Amlodipine 5 MG TAB PO SCH (11:00)
[2020-10-20 11:45] VITALS: BP 175/104; TEMP 99.2
[2020-10-21] MEDS ORDERED: Amlodipine 5 MG TAB PO SCH (09:00)
== END 2020-10-20 14:40 | DRG 274 ==
LOC: ERS 13:21 → OBSVTOIN 18:28 → 2NO 18:28
PROVIDERS: ADMIT Internal Medicine; ATTEND Internal Medicine
PROC: B24BZZ4 Ultrasonography of Heart with Aorta, Transesophageal (ICD-10-PCS; 2020-10-16)
PROC: 4A023FZ Measurement of Cardiac Rhythm, Percutaneous Approach (ICD-10-PCS; principal; 2020-10-19)
PROC: 4A0234Z Measurement of Cardiac Electrical Activity, Percutaneous Approach (ICD-10-PCS; 2020-10-19)
PROC: 02K83ZZ Map Conduction Mechanism, Percutaneous Approach (ICD-10-PCS; 2020-10-19)
PROC: 5A2204Z Restoration of Cardiac Rhythm, Single (ICD-10-PCS; 2020-10-19)
DX: I48.4 Atypical atrial flutter (principal); T82.868A Thrombosis due to vascular prosthetic devices, implants and grafts, initial encounter; I82.612 Acute embolism and thrombosis of superficial veins of left upper extremity; I69.251 Hemiplegia and hemiparesis following other nontraumatic intracranial hemorrhage affecting right dominant side; I50.32 Chronic diastolic (congestive) heart failure; I48.91 Unspecified atrial fibrillation; E04.1 Nontoxic single thyroid nodule; Z20.822 Contact with and (suspected) exposure to COVID-19; Y84.8 Other medical procedures as the cause of abnormal reaction of the patient, or of later complication, without mention of misadventure at the time of the procedure; M19.90 Unspecified osteoarthritis, unspecified site; D64.9 Anemia, unspecified; K21.9 Gastro-esophageal reflux disease without esophagitis; F41.9 Anxiety disorder, unspecified; I11.0 Hypertensive heart disease with heart failure; I08.1 Rheumatic disorders of both mitral and tricuspid valves; F32.9 Major depressive disorder, single episode, unspecified; E78.5 Hyperlipidemia, unspecified; R00.1 Bradycardia, unspecified; Z91.09 Other allergy status, other than to drugs and biological substances; Z79.899 Other long term (current) drug therapy
CPT/HCPCS: 0240U; 36415; 71045; 71275; 76536; 76942; 80048; 80053; 83735; 83880; 84439; 84443; 84481; 84484; 85025; 85379; 86140; 92960; 93005; 93010; 93306; 93312; 93613; 93621; 96374; 96375; C1732; G0378; J1200; J1644; J2001; J2175; J2250; J2704; J3475; J3490; J7030; Q9967

== ENCOUNTER 2021-11-24 15:01 | Outpatient (CLI) | payer OTHER | END 2021-11-24 15:02 | disposition home or self-care (01) | LOC: BICRAD 15:01 | PROVIDERS: ATTEND Family Medicine | DX: R05.9 Cough, unspecified (principal) | CPT/HCPCS: 71046 ==

== ENCOUNTER 2022-02-15 13:12 | Emergency (ER) | payer SELFPAY ==
[2022-02-15 13:53] LABS: #Eosinphils 0.1 thou/uL (0.0-0.7); #Lymphocytes 1.8 thou/uL (1.20-3.40); #Monocytes 0.6 thou/uL (0.11-0.59); #Neutrophils 3.8 thou/uL (1.40-6.50); %Basophils 0.6 % (0.0-1.0); %Eosinophils 1.9 % (0.0-10.0); %Lymphocytes 28.7 % (21.0-51.0); %Monocytes 9.2 % (0.0-10.0); %Neutrophils 59.6 % (42.0-75.0); Hemoglobin 12.7 g/dL (12.0-16.0); Mean Corpuscular HGB CONC 32.8 g/dL (32.0-36.0); Mean Corpuscular Hemoglobin 28.6 pg (27.0-31.0); Mean Corpuscular Volume 87.2 fL (78.0-98.0); Mean Platelet Volume 7.3 fL (7.4-10.4); Platelet Count 217 thou/uL (130-400); RBC Distribution Width 12.6 % (11.5-14.5); Red Blood Cell (RBC) Count 4.43 mill/uL (4.20-5.40); White Blood Cell (WBC) Count 6.3 thou/uL (4.8-10.8)
[2022-02-15 14:01] LABS: Prothrombin Time 12.8 sec (12.0-14.7)
[2022-02-15 14:02] LABS: PTT 28.9 sec (22.9-36.1)
[2022-02-15 14:17] LABS: ALT (SGPT) 20 U/L (8-55); AST (SGOT) 34 U/L (5-34); Albumin 4.6 g/dL (3.4-4.8); Alkaline Phosphatase 71 U/L (40-110); Anion Gap 16 mmol/L (10-20); BUN (Urea Nitrogen) 19 mg/dL (9.8-20.1); Bilirubin, Total 0.5 mg/dL (0.2-1.2); Calc. Creatinine Clearance 0 mL/min (70-130); Calcium 10.1 mg/dL (7.8-10.44); Carbon Dioxide 26 mmol/L (23-31); Chloride 103 mmol/L (98-107); Estimated GFR 67; Globulin 2.9 g/dL (2.4-3.5); Glucose 106 mg/dL (83-110); Lipase 54 U/L (8-78); Potassium 4.5 mmol/L (3.5-5.1); Protein, Total 7.5 g/dL (5.8-8.1); Sodium 140 mmol/L (136-145)
[2022-02-15] MEDS ORDERED: Fentanyl 100 MCG/2 ML VIAL ONE (14:20)
[2022-02-15] MEDS ORDERED: HYDROcodone/Acetaminophen 5/325 mg Tablet ONE (15:41)
[2022-02-15] MEDS ORDERED: Ibuprofen 200 MG TAB ONE (15:41)
== END 2022-02-15 18:37 ==
LOC: ERS 13:12
DX: M25.511 Pain in right shoulder (principal); D64.9 Anemia, unspecified; K21.9 Gastro-esophageal reflux disease without esophagitis; I10 Essential (primary) hypertension; Z86.73 Personal history of transient ischemic attack (TIA), and cerebral infarction without residual deficits; Z79.899 Other long term (current) drug therapy
CPT/HCPCS: 36415; 70450; 71045; 80053; 83690; 84484; 85025; 85610; 85730; 93005; 96374; J3010

== ENCOUNTER 2022-03-22 16:02 | Outpatient (CLI) | payer OTHER | END 2022-03-22 16:03 | disposition home or self-care (01) | LOC: ULT 16:02 | PROVIDERS: ATTEND Family Medicine | DX: E04.2 Nontoxic multinodular goiter (principal) | CPT/HCPCS: 76536 ==